=== PATIENT | male | born 1945 | race Caucasian/White ===

== ENCOUNTER 2016-09-24 11:36 | Observation (INO) | payer MEDICARE, OTHER ==
[~2016-09-24] VITALS: Ht 188 cm; Wt 119.0 kg
[~2016-09-24 11:36] MED LIST: ADV500INH INH; ADVAIR DISKUS INH; ALBU17IN INH; ALBU83IN INH; AMLO5TAB2 PO; ANTIBIOTIC; ASPI81CH PO; ASPI81TA85 PO; ASTELIN; ATRO1SOL13 INH; BUDE0.5S6 INH; CEFT250S PO; DETR4CAP10 PO; FOSI40TA PO; GLYB5TA PO; HUMA100I3 SC; HUMA100I5 SC; HUMA75IN2 SC; HYDR-3713 PO; HYDR12.55 PO; HYDR25TAB PO; INSULADS SC; INSULANT SC; KAOP262S PO; LEVA500T PO; LEVA750T PO; LIPI10TA PO; LOPE2TAB3 PO; METF1000 PO; METO25TAB PO; NASAGEL; NEUR600T PO; NITR4TASL SL; NORC1TAB4 PO; NYST50SS PO; OCUVCAP2 PO; OMEP40CA2 PO; POTA550T2 PO; PULM0.5S INH; REQU0.5T PO; ROPI5TAB PO; SMZ-800T PO; TIOT18INH INH; TRAM50TA2 PO; TYLE325T5 PO; VICT18IN SC; VITA100066 PO; VITA1CAP4 PO; VITA200038 PO; VITA500C24 PO; VITMTA PO; ZITH500T PO
[2016-09-24] MEDS ORDERED: DETR1TAB4 PO (12:09)
[2016-09-24] MEDS ORDERED: POTA99TA PO (12:09)
[2016-09-24] MEDS ORDERED: DONETAB6 PO (12:09)
[2016-09-24] MEDS ORDERED: PYRI100T2 PO (12:09)
[2016-09-24 12:21] LABS: ABG BASE EXCESS -2.3 (-2.0-2.0); ABG HCO3 22.5 MEQ/L (22.0-26.0); ABG PARTIAL PRESSURE CO2 38.8 mmHg (35.0-45.0); ABG PARTIAL PRESSURE O2 65.3 mmHg (75.0-100.0); ABG STANDARD HCO3 22.5 MEQ/L (22.0-26.0); ABG TOTAL CO2 23.7 MEQ/L (23.0-31.0); ABG pH (ARTERIAL) 7.381 UNITS (7.350-7.450)
[2016-09-24 12:59] LABS: BASO % 0.5 % (0.0-1.0); EOS % 0.6 % (0.0-3.0); LARGE UNSTAINED CELL # 0.2 K/mm3 (0.0-0.4); LARGE UNSTAINED CELL % 2.7 % (0.0-4.0); LYMPH # 1.2 K/mm3 (1.5-4.5); LYMPH % 15.8 % (24.0-44.0); MEAN CORPUSCULAR HEMOGLOBIN 29.8 pg (27.0-33.0); MEAN CORPUSCULAR HGB CONC 31.3 g/dl (32.0-36.5); MEAN CORPUSCULAR VOLUME 95.2 fl (80.0-96.0); MONO # 0.8 K/mm3 (0.0-0.8); MONO % 10.7 % (0.0-5.0); NEUTROPHILS # 5.1 K/mm3 (1.8-7.7); NEUTROPHILS % 69.7 % (36.0-66.0); PLATELET COUNT, AUTOMATED 387 k/mm3 (150-450); RED CELL DISTRIBUTION WIDTH 13.6 % (11.5-14.5); WHITE BLOOD COUNT 7.4 K/mm3 (4.0-10.0)
[2016-09-24 13:07] LABS: INR 1.11
--- NOTE | 2016-09-24 13:36 | REP ---
PORTABLE CHEST: AP portable view of the chest is performed and compared to prior studies, most recent of which is 12/23/2015. Diffuse interstitial fibrosis is again seen unchanged. The fibrotic changes are more significant on the right than on the left. The heart is not significantly enlarged. There is mild tortuosity of the thoracic aorta. The mediastinal silhouette is unchanged. IMPRESSION: Stable chronic findings without evidence of acute infiltrate. Signed by Ruben Chapman MD 09/24/2016 05:38 P
[2016-09-24 13:48] LABS: ALBUMIN 2.7 GM/DL (3.2-5.2); ALBUMIN/GLOBULIN RATIO 0.55 (1.00-1.93); ALKALINE PHOSPHATASE 90 U/L (45-117); ALT/SGPT 12 U/L (12-78); ANION GAP 12 MEQ/L (8-16); AST/SGOT 9 U/L (15-37); BILIRUBIN,DIRECT 0.2 MG/DL (0.0-0.2); BILIRUBIN,TOTAL 0.8 MG/DL (0.2-1.0); BLOOD UREA NITROGEN 18 MG/DL (7-18); CALCIUM LEVEL 8.8 MG/DL (8.8-10.2); CARBON DIOXIDE LEVEL 26 MEQ/L (21-32); CHLORIDE LEVEL 90 MEQ/L (98-107); CREATININE FOR GFR 1.42 MG/DL (0.70-1.30); POTASSIUM SERUM 4.9 MEQ/L (3.5-5.1); SODIUM LEVEL 128 MEQ/L (136-145); TOTAL PROTEIN 7.6 GM/DL (6.4-8.2)
[2016-09-24 13:54] LABS: GLUCOSE, FASTING 815 MG/DL (83-110)
[2016-09-24] MEDS ORDERED: HumuLIN R (REGULAR) INSULIN (NovoLIN R) **100U/ML** PER UNIT IV ONE (14:15)
[2016-09-24] MEDS ORDERED: NS 500 ML IV ONE ×2 (14:15→15:00)
[2016-09-24] MEDS ORDERED: MOXIFLOXACIN HCL 400 MG in APPROPRIATE DILUENT 1 EA IV ONE (15:00)
--- NOTE | 2016-09-24 15:13 | REP ---
CT CHEST WITHOUT IV CONTRAST: CT chest is performed without IV contrast with sagittal and coronal reconstruction images performed. Comparison made with prior CT of the chest 04/10/[address] abdomen 05/13/2015. Chronic patchy infiltrate is seen in the right lower lobe, first seen on the CT of 04/10/2014. It improved on the CT of the abdomen 05/13/2015, but has now increased since that time. There is some involvement of the posterior inferior right upper lobe. Scattered fibrotic changes are seen diffusely bilaterally with upper lobe emphysematous changes. There is a stable 7 mm nodule along the left major fissure just below the level of the chantale. There is chronic fibroatelectatic change in the inferior left lower lobe. The heart is not significantly enlarged. There are several mildly enlarged mediastinal lymph nodes and a few mildly enlarged right hilar lymph nodes, which appear unchanged since the 04/10/2014 CT exam. There is no pleural or pericardial effusion. There is no aneurysm of the thoracic aorta with mild scattered atherosclerotic calcification. Visualized upper abdominal structures are unremarkable. IMPRESSION: Chronic infiltrate right lower lobe first seen on the 04/10/2014 exam, improved on the 05/13/2015 examination, but has now increased. There is some involvement of the adjacent posterior inferior right upper lobe. Chronic mediastinal and right hilar adenopathy is unchanged since 04/10/2014. Signed by Ruben Chapman MD 09/24/2016 05:40 P
[2016-09-24] MEDS ORDERED: HumaLOG INSULIN (NovoLOG) PER UNIT SC STA (16:13)
[2016-09-24] MEDS ORDERED: HumaLOG INSULIN (NovoLOG) PER UNIT As Ordered ONE (16:16)
[2016-09-24] MEDS ORDERED: BISACODYL 5 MG TAB PO PRN (16:45)
[2016-09-24] MEDS ORDERED: NITROGLYCERIN 0.3 MG SUBL TAB SL PRN (16:45)
[2016-09-24] MEDS ORDERED: ONDANSETRON 4MG/2ML VIAL (J2405) IV PRN (16:45)
[2016-09-24] MEDS ORDERED: ACETAMINOPHEN TAB 650MG DOSE (2X325MG) PO PRN (16:45)
[2016-09-24 17:18] LABS: THYROXINE (T4) 7.7 UG/DL (4.5-12.0)
[2016-09-24] MEDS ORDERED: METO12TA PO (17:53)
[2016-09-24] MEDS ORDERED: INSULANT SC (17:53)
[2016-09-24] MEDS ORDERED: INSUHUMDS SC (17:53)
[2016-09-24] MEDS ORDERED: NAME10TA PO (17:53)
[2016-09-24] MEDS ORDERED: INCR1INH INH (17:53)
[2016-09-24 18:17] LABS: ANION GAP 8 MEQ/L (8-16); BLOOD UREA NITROGEN 18 MG/DL (7-18); CALCIUM LEVEL 8.3 MG/DL (8.8-10.2); CARBON DIOXIDE LEVEL 28 MEQ/L (21-32); CHLORIDE LEVEL 96 MEQ/L (98-107); GLOMERULAR FILTRATION RATE 48.8 (>42); POTASSIUM SERUM 4.2 MEQ/L (3.5-5.1); SODIUM LEVEL 132 MEQ/L (136-145)
[2016-09-24] MEDS: NS 1,000 ML IV SCH (18:20)
[2016-09-24 18:25] LABS: GLUCOSE, FASTING 487 MG/DL (83-110)
[2016-09-24 18:38] VITALS: BP 137/63
[2016-09-24] MEDS ORDERED: INSULIN HUMAN REGULAR 100 UNITS in NS 99 ML IV SCH (19:00)
[2016-09-24 20:00] VITALS: BP 137/62
[2016-09-24] MEDS: BUDESONIDE 0.5 MG/2 ML INHALATION SUSPENSION INH SCH (20:00)
[2016-09-24] MEDS: ADVAIR DISKUS 500/50 INH PWD INH SCH (20:49)
[2016-09-24] MEDS: METOPROLOL TART 25 MG TABLET PO SCH (21:12)
[2016-09-24] MEDS: rOPINIRole 0.25 MG TAB(REQUIP) PO SCH (21:13)
[2016-09-24 22:00] VITALS: BP 133/61
[2016-09-24] MEDS: INSULIN IV RATE CHANGE DOCUMENTATION ML/HR XX SCH ×2 (22:10→23:54)
[2016-09-24 23:59] LABS: ANION GAP 7 MEQ/L (8-16); BLOOD UREA NITROGEN 19 MG/DL (7-18); CALCIUM LEVEL 8.4 MG/DL (8.8-10.2); CARBON DIOXIDE LEVEL 31 MEQ/L (21-32); CHLORIDE LEVEL 98 MEQ/L (98-107); CREATININE FOR GFR 1.35 MG/DL (0.70-1.30); GLOMERULAR FILTRATION RATE 55.2 (>42); POTASSIUM SERUM 4.1 MEQ/L (3.5-5.1); SODIUM LEVEL 136 MEQ/L (136-145)
[2016-09-25] VITALS (9 sets, daily range): BP systolic 118–138; BP diastolic 56–74
[2016-09-25 00:04] LABS: GLUCOSE, FASTING 449 MG/DL (83-110)
[2016-09-25] MEDS: INSULIN IV RATE CHANGE DOCUMENTATION ML/HR XX SCH ×2 (01:04→02:29)
[2016-09-25 02:38] LABS: ANION GAP 6 MEQ/L (8-16); BLOOD UREA NITROGEN 18 MG/DL (7-18); CALCIUM LEVEL 8.5 MG/DL (8.8-10.2); CARBON DIOXIDE LEVEL 30 MEQ/L (21-32); CHLORIDE LEVEL 102 MEQ/L (98-107); CREATININE FOR GFR 1.12 MG/DL (0.70-1.30); GLOMERULAR FILTRATION RATE > 60.0 (>42); GLUCOSE, FASTING 191 MG/DL (83-110); POTASSIUM SERUM 4.1 MEQ/L (3.5-5.1); SODIUM LEVEL 138 MEQ/L (136-145)
[2016-09-25] MEDS: NS 1,000 ML IV SCH (03:10)
[2016-09-25] MEDS ORDERED: LEVEMIR (INSULIN DETEMIR) 1 UNITS/0.01ML SC ONE (03:45)
[2016-09-25] MEDS ORDERED: DEXTROSE 50% 50 ML SYRINGE IV PRN (04:45)
[2016-09-25] MEDS ORDERED: GLUCOSE 4 GM CHEW TABLET PO PRN (04:45)
[2016-09-25] MEDS ORDERED: GLUCAGON FOR INJ 1 MG VIAL (J1610) SC PRN (04:45)
[2016-09-25 06:41] LABS: BASO # 0.1 K/mm3 (0.0-0.2); BASO % 0.7 % (0.0-1.0); EOS # 0.4 K/mm3 (0.0-0.50); EOS % 5.2 % (0.0-3.0); LARGE UNSTAINED CELL # 0.3 K/mm3 (0.0-0.4); LARGE UNSTAINED CELL % 3.6 % (0.0-4.0); LYMPH # 1.8 K/mm3 (1.5-4.5); LYMPH % 23.2 % (24.0-44.0); MEAN CORPUSCULAR HEMOGLOBIN 29.7 pg (27.0-33.0); MEAN CORPUSCULAR HGB CONC 32.1 g/dl (32.0-36.5); MEAN CORPUSCULAR VOLUME 92.4 fl (80.0-96.0); MONO # 0.9 K/mm3 (0.0-0.8); MONO % 11.8 % (0.0-5.0); NEUTROPHILS # 4.4 K/mm3 (1.8-7.7); NEUTROPHILS % 55.4 % (36.0-66.0); PLATELET COUNT, AUTOMATED 383 k/mm3 (150-450); RED CELL DISTRIBUTION WIDTH 13.5 % (11.5-14.5); WHITE BLOOD COUNT 7.9 K/mm3 (4.0-10.0)
[2016-09-25 07:03] LABS: ANION GAP 9 MEQ/L (8-16); BLOOD UREA NITROGEN 16 MG/DL (7-18); CALCIUM LEVEL 8.3 MG/DL (8.8-10.2); CARBON DIOXIDE LEVEL 28 MEQ/L (21-32); CHLORIDE LEVEL 102 MEQ/L (98-107); CREATININE FOR GFR 1.02 MG/DL (0.70-1.30); GLOMERULAR FILTRATION RATE > 60.0 (>42); GLUCOSE, FASTING 197 MG/DL (83-110); SODIUM LEVEL 139 MEQ/L (136-145)
[2016-09-25] MEDS: HumaLOG INSULIN (NovoLOG) PER UNIT SC SCH ×3 (07:31→18:50)
[2016-09-25] MEDS: TIOTROPIUM INHALER/CAPSULE (SPIRIVA) INH SCH (07:53)
[2016-09-25] MEDS: ADVAIR DISKUS 500/50 INH PWD INH SCH ×2 (07:53→18:24)
[2016-09-25] MEDS: BUDESONIDE 0.5 MG/2 ML INHALATION SUSPENSION INH SCH ×2 (07:53→18:24)
[2016-09-25] MEDS: ATORVASTATIN 20 MG TAB PO SCH (08:07)
[2016-09-25] MEDS: PANTOPRAZOLE 40MG TAB (PROTONIX) PO SCH (08:07)
[2016-09-25] MEDS: MULTIVITAMINS/MINERALS THERAP 1 TAB PO SCH (08:07)
[2016-09-25] MEDS: PYRIDOXINE 50 MG TAB PO SCH (08:07)
[2016-09-25] MEDS: DONEPEZIL 5 MG TAB PO SCH (08:08)
[2016-09-25] MEDS: METOPROLOL TART 25 MG TABLET PO SCH ×2 (08:08→20:51)
[2016-09-25] MEDS: TOLTERODINE (DETROL) 2 MG TAB PO SCH (08:11)
--- NOTE | 2016-09-25 08:29 | ECGEPIP ---
Stationary ECG Study [facility] - ED Test Date: 2016-09-24 Pat Name: RIA HOLCOMB Department: Room: - Gender: M Brass Buffer: cassy : 1945 Requested By: Noni Grady Order Number: [id number] Reading MD: Noni Grady Measurements Intervals Connel[place] Rate: 82 P: 64 [place]: 139 QRS: 57 QRSD: 105 T: 58 QT: 387 QTc: 452 Interpretive Statements SINUS RHYTHM INCREASED RATE 12/12/14 Electronically Signed On 09-25-2016 8:28:45 EDT by Noni Grady
[2016-09-25] MEDS ORDERED: ENOXAPARIN 30 MG/0.3 ML SYR (J1650) SC SCH (09:00)
[2016-09-25] MEDS ORDERED: ASPIRIN 81 MG ENTERIC TAB PO SCH (09:00)
[2016-09-25] MEDS ORDERED: LEVEMIR (INSULIN DETEMIR) 1 UNITS/0.01ML SC SCH (09:00)
--- NOTE | 2016-09-25 13:31 | IPNPDOC ---
Subjective Date Seen The patient was seen on 09/25/16. Subjective Chief Complaint/HPI The patient is a 71-year-old male admitted with a reason for visit of Hyperosmolar Non Ketotic State In Patient W/Dm Ii. General: Denies: Chills, Night Sweats Constitutional: Denies: Chills, Fever Eyes: Denies: Pain, Vision change ENT: Denies: Ear Pain, Head Aches Skin: Denies: Lesions, Rash Pulmonary: Reports: Cough, Dyspnea Cardiovascular: Denies: Chest Pain, Palpitations Gastrointestinal: Denies: Nausea, Vomiting Genitourinary: Denies: Dysuria, Frequency Hematologic: Denies: Bleeding Excessively, Bruising Musculoskeletal: Denies: Back Pain, Neck Pain Objective Physical Examination General Exam: Positive: Alert, Cooperative, No Acute Distress ENT Exam: Positive: Atraumatic, Mucous membr. moist/pink Chest Exam: Positive: Diminished, Wheezing, Negative: Rales Heart Exam: Positive: Normal S1, Normal S2, Rate Normal Abdomen Exam: Positive: Soft, Negative: Tenderness Extremity Exam: Negative: Swelling, Tenderness Assessment /Plan Plan/VTE VTE Prophylaxis Ordered?: Yes Plan Hyperosmolar Non Ketotic State, resolved Likely 2/2 underlying CAP, non-adherence to insulin therapy (Patient admits that he did not take his meds yesterday as he was feeling unwell) S/P IVF Hydration, Insulin gtt Patient converted to SC Insulin this AM Patient's Blood sugar levels have been labile this AM, we will conservatively give him a dose of Levemir 30 Units this AM (Typically takes Lantus 80 U QAM) We will continue to monitor the patient's blood sugar levels and titrate insulin dosing as tolerated Community Acquired Pneumonia CT of the Chest notable for chronic RLL infiltrate, and development of a new posterior inferior RUL infiltrate Patient Afebrile this AM, WBC WNL, and Hemodynamically stable Cough, SOB improved Cont Moxifloxacin Advanced COPD with Chronic Hypoxia requiring 3L of Oxygen at rest, and 5L at night Patients respiratory status improved with treatment noted above Will with-hold steroid therapy as the patient has improved, and with his labile blood sugar levels and HHNK state Cont Nebs, Advair, Spiriva as ordered ?Hemoptysis vs Productive Cough from underlying CAP Hgb noted to be stable Aspirin and DVT prophylaxis with-held No further episodes of productive cough Will continue to monitor Hx of CAD s/p Stent Continue statin, BB Hold ASA 2/2 Above Hypertension, stable GERD Cont PPI Chronic Kidney Disease Serum Cr appears to be at baseline limits Dyslipidemia Cont Statin Dementia, stable Cont Donepezil Restless Leg Syndrome Cont Ropinirole DVT prophylaxis TEDs/SCDs Dispo: Pending clinical improvement, PT eval. VS, I&O, 24H, Fishbone Vital Signs/I&O Vital Signs Date Time Temp Pulse Resp B/P Pulse Ox O2 Delivery O2 Flow Rate FiO2 09/25/16 13:02 98.4 68 18 138/69 92 Nasal Cannula 4.0 I&O- Last 24 Hours up to 6 AM 09/25/16 06:00 Intake Total 4990 ml Output Total 1815 ml Balance 3175 ml Laboratory Data 24H LABS Laboratory Tests 2 09/24/16 15:59: Bedside Glucose (Misc Panel) 556*H 09/24/16 17:07: Bedside Glucose (Misc Panel) 487H 09/24/16 17:42: Anion Gap 8, Blood Urea Nitrogen 18, Creatinine 1.50H, Sodium Level 132L, Potassium Level 4.2, Chloride Level 96L, Carbon Dioxide Level 28, Calcium Level 8.3L, Total Creatine Kinase 74, Creatine Kinase MB 2.3, Creatine Kinase MB Relative Index 3.10, Glomerular Filtration Rate 48.8, Troponin I < 0.02 09/24/16 18:20: Bedside Glucose (Misc Panel) 483H 09/24/16 19:13: Bedside Glucose (Misc Panel) 587*H 09/24/16 20:02: Bedside Glucose (Misc Panel) 497H 09/24/16 21:11: Bedside Glucose (Misc Panel) 481H 09/24/16 22:06: Bedside Glucose (Misc Panel) 458H 09/24/16 22:49: Anion Gap 7L, Blood Urea Nitrogen 19H, Creatinine 1.35H, Sodium Level 136, Potassium Level 4.1, Chloride Level 98, Carbon Dioxide Level 31, Calcium Level 8.4L, Total Creatine Kinase 73, Creatine Kinase MB 2.2, Creatine Kinase MB Relative Index 3.01, Glomerular Filtration Rate 55.2, Troponin I < 0.02 09/24/16 23:05: Bedside Glucose (Misc Panel) 414H 09/24/16 23:46: Urine Ketones 1+H 09/24/16 23:50: Bedside Glucose (Misc Panel) 299H 09/25/16 01:01: Bedside Glucose (Misc Panel) 194H 09/25/16 01:47: Bedside Glucose (Misc Panel) 180H 09/25/16 02:04: Anion Gap 6L, Blood Urea Nitrogen 18, Creatinine 1.12, Sodium Level 138, Potassium Level 4.1, Chloride Level 102, Carbon Dioxide Level 30, Calcium Level 8.5L, Glomerular Filtration Rate > 60.0 09/25/16 03:08: Bedside Glucose (Misc Panel) 171H 09/25/16 03:46: Bedside Glucose (Misc Panel) 180H 09/25/16 05:06: Bedside Glucose (Misc Panel) 172H 09/25/16 06:02: Anion Gap 9, White Blood Count 7.9, Red Blood Count 4.49, Hemoglobin 13.3L, Hematocrit 41.5L, Mean Corpuscular Volume 92.4, Mean Corpuscular Hemoglobin 29.7 , Mean Corpuscular Hemoglobin Concent 32.1, Red Cell Distribution Width 13.5, Platelet Count 383, Neutrophils (%) (Auto) 55.4, Lymphocytes (%) (Auto) 23.2L, Monocytes (%) (Auto) 11.8H, Eosinophils (%) (Auto) 5.2H, Basophils (%) (Auto) 0.7, Neutrophils # (Auto) 4.4, Lymphocytes # (Auto) 1.8, Monocytes # (Auto) 0.9H , Eosinophils # (Auto) 0.4, Basophils # (Auto) 0.1, Blood Urea Nitrogen 16, Creatinine 1.02, Sodium Level 139, Potassium Level 4.0, Chloride Level 102, Carbon Dioxide Level 28, Calcium Level 8.3L, Total Creatine Kinase 58, Creatine Kinase MB 1.7, Creatine Kinase MB Relative Index 2.93, Glomerular Filtration Rate > 60.0, Large Unclassified Cells # 0.3, Large Unclassified Cells % 3.6, Troponin I < 0.02 09/25/16 06:15: Bedside Glucose (Misc Panel) 185H 09/25/16 07:00: Bedside Glucose (Misc Panel) 176H 09/25/16 08:25: Bedside Glucose (Misc Panel) 205H 09/25/16 09:05: Bedside Glucose (Misc Panel) 274H 09/25/16 09:58: Bedside Glucose (Misc Panel) 334H 09/25/16 11:11: Bedside Glucose (Misc Panel) 327H 09/25/16 11:41: Bedside Glucose (Misc Panel) 331H CBC/BMP Laboratory Tests 09/24/16 17:42 Calcium Level 8.3 L, Total Creatine Kinase 74 09/24/16 22:49 Calcium Level 8.4 L, Total Creatine Kinase 73 09/25/16 02:04 Calcium Level 8.5 L 09/25/16 06:02 Calcium Level 8.3 L, Total Creatine Kinase 58, Red Blood Count 4.49, Mean Corpuscular Volume 92.4, Mean Corpuscular Hemoglobin 29.7, Mean Corpuscular Hemoglobin Concent 32.1, Red Cell Distribution Width 13.5, Neutrophils (%) (Auto ) 55.4, Lymphocytes (%) (Auto) 23.2 L, Monocytes (%) (Auto) 11.8 H, Eosinophils (%) (Auto) 5.2 H, Basophils (%) (Auto) 0.7, Neutrophils # (Auto) 4.4, Lymphocytes # (Auto) 1.8, Monocytes # (Auto) 0.9 H, Eosinophils # (Auto) 0.4, Basophils # (Auto) 0.1 Microbiology Microbiology 09/24/16 Blood Culture - Preliminary, Resulted No growth after 24 hours . All specim... 09/24/16 Blood Culture - Preliminary, Resulted No growth after 24 hours . All specim... 09/24/16 Respiratory Virus Panel (PCR) (LILY) - Final, Complete 09/24/16 Acid Fast Stain - Final, Resulted 09/24/16 Mycobacterial Culture, Resulted Pending 09/24/16 Gram Stain - Final, Resulted 09/24/16 Sputum Culture, Resulted Pending 09/24/16 Influenza Virus Type A Antigen - Final, Complete 09/24/16 Influenza Virus Type B Antigen - Final, Complete KATRINA PIZANO MD Sep 25, 2016 13:31
--- NOTE | 2016-09-25 17:03 | HPE ---
DATE OF ADMISSION: 09/24/2016 CHIEF COMPLAINT: Hemoptysis. INPATIENT HOSPITALIST ATTENDING: Alonzo Uriostegui MD PRIMARY CARE PHYSICIAN: Dr. Felix Grimaldo HISTORY OF PRESENTING ILLNESS: This is a 71-year-old male with past medical history of coronary artery disease (CAD), diabetes with neuropathy, vitamin D deficiency, hypertension, hyperlipidemia, chronic obstructive pulmonary disease (COPD), type 2 diabetes with episodes of hypoglycemia, allergic rhinitis, sleep apnea, degenerative joint disease, arthritis of the knee, presents to the emergency room with complaints of hemoptysis for the past 3-4 days, scant in nature, about 1/4 of a teaspoon. No dizziness, lightheadedness, chest pain, shortness of breath. No fevers or chills at home. The patient was found to have a chronic right lower lobe infiltrate for which he sees Dr. Gilbert, unchanged from 05/13/2015, currently increased with adjacent involvement in right upper lobe by CT scan. He denies any recent nonsteroidal anti-inflammatory drug (NSAID) use, on chronic aspirin at home. He was afebrile at 98.6 on admission. He otherwise denies any hematemesis, reflux, chest pain, pressure, palpitations, lightheadedness or dizziness during this episode. Due to prior history of low glucose levels, patient had not been taking his insulin, and was found to have a glucose level of 815. Hospitalist service was called for admission for evaluation of hemoptysis and treatment for hyperosmolar nonketotic state, glucose of 815, due to noncompliance with his insulin. PAST MEDICAL HISTORY: 1. Type 2 diabetes. 2. CAD, on chronic aspirin. 3. Diabetic neuropathy. 4. Vitamin D deficiency. 5. Hypertension. 6. Hyperlipidemia. 7. COPD, follows with Dr. Gilbert. 8. Allergic rhinitis. 9. Sleep apnea, on continuous positive airway pressure (CPAP). 10. Degenerative joint disease of the lumbar spine. 11. Knee arthritis. 12. Dementia. PAST SURGICAL HISTORY: Coronary stents. ALLERGIES: No known drug allergies. SOCIAL HISTORY: Former smoker. FAMILY HISTORY: Coronary heart disease in the father. HOME MEDICATIONS: - [place] 5-325 one tablet every 6 hours as needed - albuterol sulfate 2.5 four times a day as needed for shortness of breath - Proventil as needed every 4 hours - aspirin 81 daily - budesonide 0.5/2 mL four times a day - vitamin D 2000 units daily - Neurontin 600 mg tablet, 1800 mg by mouth twice a day - Lantus insulin 80 units every morning - Lispro four times a day - loperamide 2 mg four times a day as needed - Namenda 10 twice a day - metoprolol 25 mg twice a day - multivitamin one tablet daily - nitroglycerin as needed - pyridoxine (vitamin B6) 100 mg daily - Requip 0.5 daily - Advair Diskus 500-50 one puff twice a day - tramadol 50 mg twice a day as needed for pain REVIEW OF SYSTEMS: Per history of present illness (HPI). 12-point system otherwise negative. PHYSICAL EXAMINATION: 09/24/2016: Temperature 98.6, pulse 94, respiratory rate 22, blood pressure 167/82, 86% on room air, 92% on 2 liters nasal cannula. Generally, awake, alert, oriented times three, answering questions appropriately. No jugular venous distention (JVD), no thyromegaly, no cervical lymphadenopathy. LUNGS: Basilar crackles on the right base, otherwise faint expiratory wheezing, air entry is equal. HEART: S1, S2, sinus rhythm. No murmurs, rubs, or gallops. ABDOMEN: Soft, nontender, nondistended. Positive bowel sounds. EXTREMITIES: No cyanosis, clubbing, or pitting edema. White count 7.4, hemoglobin 14, hematocrit 46, platelet count 387, neutrophils 69.7. Sodium 128, potassium 4.9, chloride 90, bicarbonate 26, BUN 18, creatinine 1.42, glucose 815, A1c 11.3. Chest CT: Chronic infiltrate right lower lobe first seen 04/10/2014, improved on 05/13/2015, now increased, somewhat involving posterior inferior right upper lobe. Chronic mediastinal right hilar adenopathy is unchanged 04/10/2014. Previous sputum culture 06/01/2016 was Pseudomonas and mold-like organism on 04/10/2014. ASSESSMENT AND PLAN: This is a 71-year-old male with history of hypoglycemia, type 2 diabetes, history of coronary artery disease (CAD) with stents on chronic aspirin, chronic obstructive pulmonary disease (COPD), chronic right lower lobe infiltrate on CT dating back to 2013, hypertension, dementia, chronic hypoxia requiring 3 liters of oxygen at rest and 5 liters at night, reflux, chronic kidney disease at baseline, dyslipidemia, restless legs, presents with complaints of hemoptysis and noncompliance with his insulin, was found to be in hyperosmolar nonketotic state with glucose of 815. Patient will be admitted and assigned to Dr. Alonzo Uriostegui at 10 p.m. 09/24/2016, as an inpatient for the following issues: 1. Hyperosmolar nonketotic state secondary to uncontrolled type 2 diabetes from medical noncompliance with his insulin. Patient has had several episodes of hypoglycemia, low glucose level, prompting him to be noncompliant with his insulin at home. Patient will be given intravenous insulin until glucose is improved. IV fluids for now and resume home dose of long-acting and short-acting insulin once patient is stabilized. Every 4 hours basic metabolic panels (BMPs) and sliding scale per protocol. May transfer out of intensive care unit (ICU) to medical/surgical floor once patient's glucose is stabilized. Continue consistent carbohydrate diet, sliding scale, diabetic teaching, and hypoglycemic protocol teaching. 2. Hemoptysis in light of chronic right lower lobe infiltrate. Patient will be treated for pneumonia. He has been started on Avelox. Will obtain sputum culture, respiratory panel. 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 Gilbert. Will check Acid-Fast Bacilli (AFB) times three. Await sputum culture results and change antibiotics accordingly. Monitor for increased white count or worsening shortness of breath as well as fevers. Patient may be colonized with Pseudomonas. Currently has no other respiratory complaints. 3. History of coronary artery disease (CAD) and stents. In light of current hemoptysis complaints, patient's aspirin and anticoagulation will be discontinued and he will be given compression stockings. 4. Community-acquired pneumonia right lower lobe. Antibiotics. Afebrile. Continue nebulizer treatments. Await sputum culture. Check urine Legionella and urine Streptococcal antigen. Nebulizer treatments for comfort and supplemental oxygen. 5. Advanced chronic obstructive pulmonary disease (COPD) with chronic hypoxic respiratory failure. Keep saturations at 88-92%. Continue with nebulizer treatments. No acute exacerbation at this time. Will hold off on steroid therapy due to elevated glucose levels. 6. Hypertension, stable. 7. Reflux. On proton pump inhibitor (PPI). 8. Chronic kidney disease at baseline. Avoid nephrotoxins. Renally dose all medications. 9. Dyslipidemia. Continue statin. 10. Dementia. On donepezil. 11. Restless legs. Continue ropinirole. 12. Deep venous thrombosis (DVT) prophylaxis with compression stockings. No anticoagulation due to current complaints of hemoptysis. 13. Hyperlipidemia. Continue Lipitor.
[2016-09-25] MEDS ORDERED: MOXIFLOXACIN 400 MG TAB PO SCH (18:00)
[2016-09-25] MEDS: LEVEMIR (INSULIN DETEMIR) 1 UNITS/0.01ML SC SCH (20:51)
[2016-09-25] MEDS: rOPINIRole 0.25 MG TAB(REQUIP) PO SCH (20:51)
[2016-09-25] MEDS ORDERED: HumaLOG INSULIN (NovoLOG) PER UNIT SC SCH (21:00)
[2016-09-26 06:00] VITALS: BP 143/69
[2016-09-26 06:53] LABS: BASO # 0.1 K/mm3 (0.0-0.2); BASO % 0.9 % (0.0-1.0); EOS # 0.6 K/mm3 (0.0-0.50); EOS % 7.3 % (0.0-3.0); LARGE UNSTAINED CELL # 0.4 K/mm3 (0.0-0.4); LARGE UNSTAINED CELL % 4.7 % (0.0-4.0); LYMPH # 2.7 K/mm3 (1.5-4.5); LYMPH % 28.7 % (24.0-44.0); MEAN CORPUSCULAR HGB CONC 31.5 g/dl (32.0-36.5); MEAN CORPUSCULAR VOLUME 91.9 fl (80.0-96.0); MONO # 0.8 K/mm3 (0.0-0.8); MONO % 9.3 % (0.0-5.0); NEUTROPHILS % 49.2 % (36.0-66.0); PLATELET COUNT, AUTOMATED 377 k/mm3 (150-450); RED CELL DISTRIBUTION WIDTH 13.5 % (11.5-14.5); WHITE BLOOD COUNT 8.2 K/mm3 (4.0-10.0)
[2016-09-26] MEDS: TIOTROPIUM INHALER/CAPSULE (SPIRIVA) INH SCH (07:50)
[2016-09-26] MEDS: ADVAIR DISKUS 500/50 INH PWD INH SCH (07:50)
[2016-09-26] MEDS: BUDESONIDE 0.5 MG/2 ML INHALATION SUSPENSION INH SCH (07:50)
[2016-09-26] MEDS ORDERED: AVEL1TAB PO (08:02)
[2016-09-26] MEDS: LEVEMIR (INSULIN DETEMIR) 1 UNITS/0.01ML SC SCH (08:07)
[2016-09-26 08:08] VITALS: BP 143/69
[2016-09-26] MEDS: METOPROLOL TART 25 MG TABLET PO SCH (08:08)
[2016-09-26] MEDS: MULTIVITAMINS/MINERALS THERAP 1 TAB PO SCH (08:08)
[2016-09-26] MEDS: ATORVASTATIN 20 MG TAB PO SCH (08:08)
[2016-09-26] MEDS: PANTOPRAZOLE 40MG TAB (PROTONIX) PO SCH (08:08)
[2016-09-26] MEDS: HumaLOG INSULIN (NovoLOG) PER UNIT SC SCH (08:08)
[2016-09-26] MEDS: PYRIDOXINE 50 MG TAB PO SCH (08:09)
[2016-09-26] MEDS: DONEPEZIL 5 MG TAB PO SCH (08:09)
[2016-09-26] MEDS: TOLTERODINE (DETROL) 2 MG TAB PO SCH (08:12)
[2016-09-26] MEDS ORDERED: INSULADS INJ (08:32)
--- NOTE | 2016-09-26 13:21 | DS.PDOC ---
Discharge Summary General Date of Admission Sep 24, 2016 at 16:35 Date of Discharge Sep 26, 2016 at 10:20 Discharge Summary PROCEDURES PERFORMED DURING STAY: None. ADMITTING DIAGNOSES: 1. . HHNK 2. . Hemoptysis 3. . Community-acquired pneumonia DISCHARGE DIAGNOSES: 1. . HHNK 2. . Hemoptysis 3. . Community-acquired pneumonia COMPLICATIONS/CHIEF COMPLAINT: Hyperosmolar Non Ketotic State In Patient W/Dm Ii. HISTORY OF PRESENT ILLNESS: . 71-year-old male with past medical history of diabetes mellitus, coronary artery disease, diabetic neuropathy, vitamin D deficiency, hypertension, discectomy, COPD on 3 L of oxygen at baseline during the day, and 5 L of oxygen at night, degenerative joint disease, obstructive sleep apnea, and osteoporosis presented the ER with a chief complaint of shortness of breath, with productive cough, and hemoptysis. The patient denied any episodes of fevers, chills, chest pain, palpitations, abdominal pain, or any nausea/vomiting/diarrhea at home. In addition, the patient stated that he did not take any his medications on the morning prior to his coming to the ER. In the ER, patient was noted to be hyperglycemic with a blood glucose level of 815. In addition, a CT scan of the chest revealed chronic infiltrate with a right lower lobe, and a developing inferior right upper lobe infiltrate. The patient was admitted to the hospitalist service for further evaluation and management of hyperglycemia and community acquired pneumonia. During the patient's hospitalization, he was started on IV fluid hydration and an insulin drip for hyperglycemia/HHNK. In addition he was started on moxifloxacin for community-acquired pneumonia. In addition, the patient's aspirin was held for possible hemoptysis. The patient's clinical condition markedly improved with IV fluid hydration and IV insulin, and he was subsequently transitioned to subcutaneous insulin. The patient states that he had not been taking his insulin therapy at home because he has been having episodes of hypoglycemia. I have rearranged the patient's Lantus regimen to 30 units subcutaneous twice a day as opposed to 80 units every morning, and this has relatively controlled the patient's blood sugar levels here in the hospital without any episodes of hypoglycemia. I have advised the patient to follow-up with monitoring his blood sugar at home to ensure that he does not become hyperglycemic again. As for the patient's hemoptysis and respiratory distress, the patient did not have any further episodes of hemoptysis and his respiratory status improved with antibiotic therapy. At this time, the patient states that he is feeling much better and he will be discharged home with a 10 day trial of moxifloxacin. DISCHARGE MEDICATIONS: Please see below. ALLERGIES: Please see below. PHYSICAL EXAMINATION ON DISCHARGE: VITAL SIGNS: Please see below. General Exam: Positive: Alert, Cooperative, No Acute Distress ENT Exam: Positive: Atraumatic, Mucous membr. moist/pink Chest Exam: Positive: Diminished, Wheezing, Negative: Rales Heart Exam: Positive: Normal S1, Normal S2, Rate Normal Abdomen Exam: Positive: Soft, Negative: Tenderness Extremity Exam: Negative: Swelling, Tenderness LABORATORY DATA: Please see below. IMAGING: CT CHEST WITHOUT IV CONTRAST: CT chest is performed without IV contrast with sagittal and coronal reconstruction images performed. Comparison made with prior CT of the chest 04/10/[address] abdomen 05/13/2015. Chronic patchy infiltrate is seen in the right lower lobe, first seen on the CT of 04/10/2014. It improved on the CT of the abdomen 05/13/2015, but has now increased since that time. There is some involvement of the posterior inferior right upper lobe. Scattered fibrotic changes are seen diffusely bilaterally with upper lobe emphysematous changes. There is a stable 7 mm nodule along the left major fissure just below the level of the chant[place]. There is chronic fibroatelectatic change in the inferior left lower lobe. The heart is not significantly enlarged. There are several mildly enlarged mediastinal lymph nodes and a few mildly enlarged right hilar lymph nodes, which appear unchanged since the 04/10/2014 CT exam. There is no pleural or pericardial effusion. There is no aneurysm of the thoracic aorta with mild scattered atherosclerotic calcification. Visualized upper abdominal structures are unremarkable. IMPRESSION: Chronic infiltrate right lower lobe first seen on the 04/10/2014 exam, improved on the 05/13/2015 examination, but has now increased. There is some involvement of the adjacent posterior inferior right upper lobe. Chronic mediastinal and right hilar adenopathy is unchanged since 04/10/2014. PROGNOSIS: Medically stable at this time, long-term prognosis poor ACTIVITY: As tolerated. DIET: . Carb consistent diet DISCHARGE PLAN: DISPOSITION: 01 Home, Self-Care. DISCHARGE INSTRUCTIONS: 1. . Follow-up with primary care physician within one to 2 weeks 2. . Follow-up with pulmonary within 2-4 weeks 3. . Complete antibiotic trial over the next 10 days DISCHARGE CONDITION: Stable. TIME SPENT ON DISCHARGE: Greater than 30 minutes. Vital Signs/I&Os Vital Signs Date Time Temp Pulse Resp B/P Pulse Ox O2 Delivery O2 Flow Rate FiO2 09/26/16 10:00 Room Air 09/26/16 08:08 62 143/69 09/26/16 06:00 98.4 20 92 4.0 I&O- Last 24 Hours up to 6 AM 09/26/16 06:00 Intake Total 2080 ml Output Total 450 ml Balance 1630 ml Laboratory Data Labs 24H Laboratory Tests 2 09/25/16 17:12: Bedside Glucose (Misc Panel) 313H 09/25/16 19:52: Bedside Glucose (Misc Panel) 331H 09/26/16 06:07: White Blood Count 8.2, Red Blood Count 4.59, Hemoglobin 13.3L, Hematocrit 42.2, Mean Corpuscular Volume 91.9, Mean Corpuscular Hemoglobin 29.0, Mean Corpuscular Hemoglobin Concent 31.5L, Red Cell Distribution Width 13.5, Platelet Count 377, Neutrophils (%) (Auto) 49.2, Lymphocytes (%) (Auto) 28.7, Monocytes (%) (Auto) 9.3H, Eosinophils (%) (Auto) 7.3H, Basophils (%) (Auto) 0.9 , Neutrophils # (Auto) 4.0, Lymphocytes # (Auto) 2.7, Monocytes # (Auto) 0.8, Eosinophils # (Auto) 0.6H, Basophils # (Auto) 0.1, Large Unclassified Cells # 0.4, Large Unclassified Cells % 4.7H 09/26/16 06:38: Bedside Glucose (Misc Panel) 116H CBC/BMP Laboratory Tests 09/26/16 06:07 Red Blood Count 4.59, Mean Corpuscular Volume 91.9, Mean Corpuscular Hemoglobin 29.0, Mean Corpuscular Hemoglobin Concent 31.5 L, Red Cell Distribution Width 13.5, Neutrophils (%) (Auto) 49.2, Lymphocytes (%) (Auto) 28.7, Monocytes (%) ( Auto) 9.3 H, Eosinophils (%) (Auto) 7.3 H, Basophils (%) (Auto) 0.9, Neutrophils # (Auto) 4.0, Lymphocytes # (Auto) 2.7, Monocytes # (Auto) 0.8, Eosinophils # (Auto) 0.6 H, Basophils # (Auto) 0.1 FSBS Laboratory Tests Test 09/25/16 17:12 09/25/16 19:52 09/26/16 06:38 Range/Units Bedside Glucose (Misc Panel) 313 331 116 83-110 MG/DL Microbiology Microbiology 09/24/16 Blood Culture - Preliminary, Resulted No Growth after 48 hours. All Specime... 09/24/16 Blood Culture - Preliminary, Resulted No Growth after 48 hours. All Specime... 09/24/16 Respiratory Virus Panel (PCR) (LILY) - Final, Complete 09/24/16 Acid Fast Stain - Final, Resulted 09/24/16 Mycobacterial Culture, Resulted Pending 09/24/16 Gram Stain - Final, Resulted 09/24/16 Sputum Culture, Resulted Pending 09/24/16 Influenza Virus Type A Antigen - Final, Complete 09/24/16 Influenza Virus Type B Antigen - Final, Complete Discharge Medications Scheduled (Aspirin) 81 Mg Chw 81 MG PO DAILY (Reported) (Incruse Ellipta) 62.5 Mcg/Inh Inh 1 PUFF INH DAILY (Reported) Cholecalciferol (Vitamin D) 1,000 Unit Tab 2,000 UNIT PO DAILY (Reported) Donepezil Hcl (Donepezil HCl) 10 Mg Tab 10 MG PO DAILY (Reported) Gabapentin (Neurontin) 600 Mg Tab 1,800 MG PO BID (Reported) Insulin Glargine (Lantus) 100 Unit/Ml Inj 30 UNIT INJ BID Insulin Human Lispro (Humalog) 1 Units/0.01 Ml Inj 1 DOSE SC QID (Reported) [facility] has rx on file as 25 units up to qid, pt adjusts per sliding scale Memantine Hydrochloride (Namenda) 10 Mg Tab 10 MG PO BID (Reported) Metoprolol Tartrate (Metoprolol Tartrate) 25 Mg Tab 25 MG PO BID (Reported) Moxifloxacin Hydrochloride (Avelox) 400 Mg Tab 400 MG PO DAILY@18 Multivitamins *[facility] STOCKED* (Thera M Plus *[facility] STOCK[facility]*) 1 Tab Tab 1 TAB PO DAILY (Reported) Potassium (Potassium) 99 Mg Tab 99 MG PO DAILY (Reported) Pyridoxine HCl (Vitamin B-6) 100 Mg Tab 100 MG PO DAILY (Reported) Ropinirole Hydrochloride (Requip) 0.5 Mg Tab 0.5 MG PO DAILY (Reported) Salmeterol/Fluticasone (Advair Diskus 500-50 Mcg/Dose) 28 Puff/Inhaler Aerp 1 PUFF INH BID (Reported) Scheduled PRN (Kaopectate) 262 Mg/15 Ml [place] 262 MG PO QID PRN PRN DIARRHEA (Reported) Acetaminophen/Hydrocodone ([place] 5-325 mg) 1 Tab Tab 1 TAB PO Q6H PRN PRN PAIN ( Reported) Albuterol Sulfate (Ventolin Hfa) 200 Puff/8 Gm Aers 2 PUFF INH Q4HP PRN PRN SHORTNESS OF BREATH (Reported) Albuterol Sulfate (Albuterol Sulfate) 2.5 Mg/3 Ml Nebu 2.5 MG INH QID PRN PRN SHORTNESS OF BREATH (Reported) Budesonide (Budesonide) 0.5 Mg/2 Ml Neb 0.5 MG INH QID PRN PRN SHORTNESS OF BREATH (Reported) Loperamide HCl (Loperamide A-D) 2 Mg Tab 2 MG PO QID PRN PRN DIARRHEA (Reported ) Nitroglycerin (Nitrostat) 0.4 Mg Subl 0.4 MG SL Q5MP PRN PRN ANGINA (Reported) Tramadol HCl (Tramadol HCl) 50 Mg Tab 50 MG PO BID PRN PRN PAIN (Reported) Allergies Coded Allergies: No Known Allergies (Unverified , 10/18/13) KATRINA PIZANO MD Sep 26, 2016 13:21
--- NOTE | 2016-09-26 22:10 | HPE ---
DATE OF ADMISSION: 09/24/2016 PRIMARY CARE PHYSICIAN: Dr. Grimaldo HOSPITALIST ATTENDING: Dr. Radha Uriostegui. CHIEF COMPLAINT: Hemoptysis. HISTORY OF PRESENTING ILLNESS: A 71-year-old male with prior history of chronic obstructive pulmonary disease (COPD) on home oxygen 2 liters, with chronic hypoxic respiratory failure, coronary artery disease (CAD), stent 2009, type 2 diabetes, hypertension, episodes of hyperglycemia, chronic right lower lobe pneumonia, follows with Dr. Lin, vitamin D deficiency, hyperlipidemia, allergic rhinitis, sleep apnea, degenerative disc disease and ulcerative arthritis of the knees, and diabetic neuropathy, presents to the emergency room with three to four day history of hemoptysis, about a 1/4 of a teaspoon of bright red blood. Patient denies fever, chills. He has chronic shortness of breath. No chest pain, pressure or tightness, nausea or vomiting, diarrhea, abdominal pain. No changes in appetite. No prior history of hemoptysis. He has chronic right lower lobe infiltrate and density with no prior bronchoscopy or biopsy. He had been a more than 50 pack year history of smoking, quit seven years ago. Patient also complains of occasional memory loss and states that he has been eating outside. Sugars have been running very low for the past few months and he is afraid to take his insulin. Patient has not taken his insulin today, was found to have a glucose level of 800. Hospitalist service was called for admission for hyperosmolar non-ketosis with glucose level of 800 with no ketones. A1c was 11.3 with glucose of 815. Chest CT shows chronic right lower lobe infiltrate, improved 05/13/2015 as compared to 03/2014, but currently increased, with involvement of the inferior right upper lobe with chronic mediastinal right hilar adenopathy since 2013. Hospitalist service was asked to admit for management of patient's hyperosmolar non-ketosis, glucose of 815, as well as evaluation for the right upper lobe and chronic right lower lobe infiltrate. PAST MEDICAL HISTORY: 1. Type 2 diabetes. 2. Episodes of hyperglycemia. 3. Hypertension. 4. Vitamin D deficiency 5. Coronary artery disease (CAD) with stent. 6. Hyperlipidemia. 7. Chronic obstructive pulmonary disease (COPD). 8. Allergic rhinitis. 9. Chronic 2 liters of oxygen. 10. Obstructive sleep apnea. 11. Degenerative joint disease lumbar spine. 12. Ulcerative arthritis of the knees. PAST SURGICAL HISTORY: 1. Cardiac stent. 2. Upper teeth surgery with plate placement. ALLERGIES: No known drug allergies. SOCIAL HISTORY: A pack a day since age 13, quit in 2009. Retired . Worked for [employer] for 24 years. Lives with and has a cat at home. Quit drinking 2009. FAMILY HISTORY: Cardiac disease in the father. in his 60s. Mother in her 50s with unknown medical problems. REVIEW OF SYSTEMS: A 12-point system negative aside from positive findings in history of present illness (HPI). HOME MEDICATIONS: - [place] 1 tablet every 6 hours as needed - albuterol 2.5 mg four times a day as needed - Ventolin 2 puffs as needed every 4 hours - aspirin 81 mg daily - atorvastatin 10 mg daily - budesonide 0.5 mg four times a day as needed - vitamin D 2000 units daily - Neurontin 1800 mg twice a day - loperamide as needed four times a day - metoprolol 25 mg twice a day - multivitamin 1 tablet daily - nitroglycerin as needed - mg daily - Requip 0.5 mg at bedtime - Advair Diskus 500/50 one puff twice a day - Spiriva 1 inhaled daily - Detrol 4 mg daily - tramadol 50 mg twice a day as needed PHYSICAL EXAMINATION: Temperature 98.6, pulse 94, respiratory 22, blood pressure 167/82, 96% on room air. GENERAL: Awake, alert, oriented times three. Answers questions appropriately. No cyanosis. No use of respiratory accessory muscles. Appears older than stated age. Missing teeth, poor dentition. Dry mucous membranes. No jugular venous distention (JVD), thyromegaly, cervical adenopathy. LUNGS: Clear to auscultation. No wheezing, rales or rhonchi. HEART: S1, S2. Sinus rhythm. No murmurs, rubs or gallops. ABDOMEN: Soft, nontender, nondistended. Bowel sounds positive. EXTREMITIES: No clubbing, cyanosis or pitting edema. LABORATORY DATA: White count 7.3, hemoglobin 14, hematocrit 46, platelet count 387, neutrophils 69.7. Sodium 128, potassium 4.9, chloride 90, bicarbonate 26, BUN 18, creatinine 1.42, glucose 815, calcium 8.8. A1c 11.3. Serum osmolality 326. Lactic acid 1.7. Total bilirubin 0.8, direct bilirubin 0.28, ALT 12, alkaline phosphatase 90, total protein 7.6, albumin 2.7. Total CK 69. MB fraction 2.2. Troponin less than 0.02. Brain natriuretic peptide (BNP) 532. Thyroid stimulating hormone (TSH) is pending. Microbiology: Influenza A and B both negative. Blood culture pending. CT chest shows persistent right lower lobe infiltrate first seen 04/10/2014, improved on 05/13/2015, now increased involvement of adjacent posterior-inferior right upper lobe, chronic mediastinal and right hilar adenopathy and changes change since 04/10/2014. ASSESSMENT AND PLAN: This is a 71-year-old male with a more than 50 pack year history of smoking, quit about seven years ago, previous history of alcohol use, type 2 diabetes, episodes of hyperglycemia, hypertension, hyperlipidemia, coronary artery disease (CAD) with stent, on chronic aspirin, presents to the emergency room with a three to four day history of hemoptysis, about 1/4 teaspoon to one teaspoon at home, found to have hyperosmolar non-ketosis secondary to type 2 diabetes and medical noncompliance with his insulin regimen. Current glucose is 815, A1c of 11.3. He was noted to have, on chest CT, a chronic right lower lobe infiltrate with current involvement of the right upper lobe. Patient will be admitted as an inpatient for two midnights and assigned to Dr. Garcia, seen at 10 p.m. on 09/24/2016, hospitalist service for the following issues: 1. Hemoptysis. Patient has no acute indication for red blood cell transfusion. Hemoglobin and hematocrit (H and H) and vital signs are stable. CT chest shows persistent right lower lobe infiltrate. He has an outpatient followup with Dr. Gilbert next week, which he will keep. At this time, no acute indication for bronchoscopy. We will check a sputum culture, respiratory panel, an acid-fast bacillus. Patient has not traveled outside the country, does not require isolation at this time and no high-risk contacts. Influenza A and B are negative. Antibiotics with Avelox for now. 2. Hyperosmolar non-ketosis. Glucose level of over 800 secondary to medical noncompliance with his insulin due to fear of hypoglycemia. Patient will be placed in intensive care unit (ICU), fingersticks every hour, basic metabolic panel (BMP) every 4 hours. Once glucose is less than 250, may resume home dose of insulin. Continue with consistent carbohydrate diet. Insulin sliding scale with hyperglycemic protocol. Once patient is off insulin drip, intensive care unit (ICU) admission for every hour fingersticks. 3. History of coronary artery disease (CAD) and stent due to active hemoptysis. Aspirin will be held today. Continue on Lipitor, metoprolol 25 mg twice a day, nitroglycerin as needed. 4. Restless legs. Continue ropinirole. 5. History of chronic obstructive pulmonary disease (COPD) on chronic oxygen. Venting on 2 liters nasal cannula. 6. History of dementia. Continue on Aricept. 7. Deep venous thrombosis (DVT) prophylaxis. With compression stockings. No anticoagulation due to hemoptysis. Patient will be assigned to Radha Uriostegui at 10 p.m., 09/24/2016.
== END 2016-09-26 10:20 | disposition home or self-care (01) ==
LOC: M ED 13:09 → M ED INP 16:35 → M ICU 18:11 → M MS5PR 09-25 12:41
PROVIDERS: ADMIT General Practice; ATTEND Internal Medicine
DX: E11.00 Type 2 diabetes mellitus with hyperosmolarity without nonketotic hyperglycemic-hyperosmolar coma (NKHHC) (principal); E11.21 Type 2 diabetes mellitus with diabetic nephropathy; R04.2 Hemoptysis; J18.9 Pneumonia, unspecified organism; I25.10 Atherosclerotic heart disease of native coronary artery without angina pectoris; E55.9 Vitamin D deficiency, unspecified; I10 Essential (primary) hypertension; J44.9 Chronic obstructive pulmonary disease, unspecified; Z99.81 Dependence on supplemental oxygen; R06.02 Shortness of breath; E78.5 Hyperlipidemia, unspecified; J30.9 Allergic rhinitis, unspecified; Z79.82 Long term (current) use of aspirin; Z79.4 Long term (current) use of insulin; Z79.899 Other long term (current) drug therapy; G25.81 Restless legs syndrome; N18.9 Chronic kidney disease, unspecified; Z98.61 Coronary angioplasty status; F03.90 Unspecified dementia, unspecified severity, without behavioral disturbance, psychotic disturbance, mood disturbance, and anxiety
CPT/HCPCS: 36415; 36600; 71010; 71250; 80048; 80076; 81002; 82550; 82553; 82803; 83036; 83605; 83880; 83930; 84436; 84443; 84479; 84484; 85025; 85610; 86480; 87040; 87070; 87077; 87116; 87184; 87205; 87206; 87486; 87581; 87633; 87798; 87804; 93005; 93041; 94640; 97161; 99285; G0378; G8978; G8979; G8980; J2280

== ENCOUNTER → 2016-10-13 | Outpatient (CLI) | payer MEDICARE, OTHER ==
[~2016-10-13] MED LIST changes: +AVEL1TAB PO; +DETR1TAB4 PO; +DONETAB6 PO; +INCR1INH INH; +INSUHUMDS SC; +INSULADS INJ; +METO12TA PO; +NAME10TA PO; +POTA99TA PO; +PYRI100T2 PO
--- NOTE | 2016-10-13 11:18 | REP ---
CHEST, TWO VIEWS: HISTORY: Right lower lobe pneumonia. COMPARISON: 09/24/2016 A diffuse increase in interstitial markings is present in the lungs, consistent with chronic interstitial fibrosis. Bullae are present in the right upper lobe. The heart is normal in size. There is fullness of the right hilum, unchanged compared to the previous study. The bony structure is intact. IMPRESSION: Chronic interstitial fibrosis.
== END ==
LOC: M CLY 10:42
PROVIDERS: ATTEND Family Medicine
DX: J15.1 Pneumonia due to Pseudomonas (principal)

== ENCOUNTER → 2017-01-06 | Outpatient (REF) | payer MEDICARE, OTHER ==
[~2017-01-06] MED LIST changes: -AVEL1TAB PO; +AVEL1TAB3 PO; +DETR4CAP PO; -DETR4CAP10 PO; +LEVA1TAB2 PO; -LEVA500T PO; -LEVA750T PO; +LEVA750T7 PO; -METF1000 PO; +METF10004 PO; -METO12TA PO; +METO1TAB87 PO; -REQU0.5T PO; +REQU1TAB15 PO; -SMZ-800T PO; +SULF1TAB23 PO; +VITA-137 PO; -VITA1CAP4 PO
[2017-01-06 19:20] LABS: ALBUMIN 3.3 GM/DL (3.2-5.2); ALBUMIN/GLOBULIN RATIO 0.79 (1.00-1.93); ALKALINE PHOSPHATASE 89 U/L (45-117); ALT/SGPT 17 U/L (12-78); ANION GAP 8 MEQ/L (8-16); AST/SGOT 13 U/L (15-37); BILIRUBIN,TOTAL 0.5 MG/DL (0.2-1.0); BLOOD UREA NITROGEN 17 MG/DL (7-18); CALCIUM LEVEL 8.9 MG/DL (8.8-10.2); CARBON DIOXIDE LEVEL 28 MEQ/L (21-32); CHLORIDE LEVEL 101 MEQ/L (98-107); CREATININE FOR GFR 1.12 MG/DL (0.70-1.30); GLOMERULAR FILTRATION RATE > 60.0 (>42); GLUCOSE, FASTING 82 MG/DL (83-110); SODIUM LEVEL 137 MEQ/L (136-145); TOTAL PROTEIN 7.5 GM/DL (6.4-8.2)
[2017-01-06 19:23] LABS: POTASSIUM SERUM 5.3 MEQ/L (3.5-5.1)
== END ==
LOC: M SFHCCLAY 13:09
PROVIDERS: ATTEND Family Medicine
DX: E11.40 Type 2 diabetes mellitus with diabetic neuropathy, unspecified (principal)
CPT/HCPCS: 80053; 83036; G0463

== ENCOUNTER → 2017-03-31 | Outpatient (REF) | payer MEDICARE, OTHER ==
[2017-03-31 19:03] LABS: VITAMIN B12 LEVEL 546 PG/ML (247-911)
[2017-03-31 19:04] LABS: FOLATE 7.9 NG/ML (>5.4)
[2017-03-31 19:06] LABS: TOTAL PROTEIN 7.7 GM/DL (6.4-8.2)
[2017-04-01 14:00] LABS: ALBUMIN % 50.5 % (55.8-66.1)
[2017-04-01 14:01] LABS: ALBUMIN 3.89 GM/DL (3.29-5.55); GAMMA GLOBULIN % 16.7 % (11.1-18.8)
[2017-04-06 08:06] LABS: VITAMIN E LEVEL 15.7 mg/L (5.3-17.5)
== END ==
LOC: M LABNEURO 15:02
PROVIDERS: ATTEND Psychiatry & Neurology Neurology
DX: E07.9 Disorder of thyroid, unspecified (principal); E11.9 Type 2 diabetes mellitus without complications

== ENCOUNTER 2017-06-20 11:26 | Inpatient (IN) | payer MEDICARE, OTHER ==
[2017-06-20 11:44] LABS: ABG BASE EXCESS -1.3 (-2.0-2.0); ABG O2 SATURATION 98.5 % (95.0-99.0); ABG PARTIAL PRESSURE CO2 47.2 mmHg (35.0-45.0); ABG PARTIAL PRESSURE O2 127.6 mmHg (75.0-100.0); ABG STANDARD HCO3 23.4 MEQ/L (22.0-26.0); ABG TOTAL CO2 26.4 MEQ/L (23.0-31.0); ABG pH (ARTERIAL) 7.341 UNITS (7.350-7.450)
[2017-06-20] MEDS ORDERED: NS IV (11:45)
[2017-06-20] MEDS ORDERED: DILUENT IV (11:45)
[2017-06-20 12:14] LABS: HEMATOCRIT 44.7 % (42.0-52.0); HEMOGLOBIN 15.2 g/dl (14.0-18.0); MEAN CORPUSCULAR HEMOGLOBIN 29.1 pg (27.0-33.0); MEAN CORPUSCULAR VOLUME 85.6 fl (80.0-96.0); PLATELET COUNT, AUTOMATED 331 10^3/uL (150-450); RED BLOOD COUNT 5.22 10^6/uL (4.30-6.10); RED CELL DISTRIBUTION WIDTH 13.5 % (11.5-14.5)
[2017-06-20 12:19] LABS: ADD MANUAL DIFFER YES; DIFF SLIDE NUMBER 121; LEFT SHIFT POS FLAG; POSITIVE MORPH POS FLAG
[2017-06-20 12:26] LABS: INR 0.95; PARTIAL THROMBOPLASTIN TIME 26.1 SECONDS (26.8-37.9); PROTHROMBIN TIME 12.8 SECONDS (12.4-14.5)
[2017-06-20 12:28] LABS: AMMONIA < 10 uMOL/L (<32)
[2017-06-20 12:32] LABS: LACTIC ACID SEPSIS PROTOCOL 1.9 MMOL/L (0.4-2.0)
[2017-06-20 12:37] LABS: ALBUMIN 3.1 GM/DL (3.2-5.2); ALBUMIN/GLOBULIN RATIO 0.63 (1.00-1.93); ALKALINE PHOSPHATASE 77 U/L (45-117); ALT/SGPT 14 U/L (12-78); AMYLASE 31 U/L (25-115); ANION GAP 11 MEQ/L (8-16); AST/SGOT 8 U/L (7-37); BILIRUBIN,DIRECT 0.1 MG/DL (0.0-0.2); BILIRUBIN,TOTAL 0.4 MG/DL (0.2-1.0); BLOOD UREA NITROGEN 51 MG/DL (7-18); CARBON DIOXIDE LEVEL 29 MEQ/L (21-32); CHLORIDE LEVEL 101 MEQ/L (98-107); CPK CREATINE PHOSPHOKINASE 27 U/L (39-308); CREATININE FOR GFR 2.36 MG/DL (0.70-1.30); GLOMERULAR FILTRATION RATE 28.9 (>42); POTASSIUM SERUM 3.9 MEQ/L (3.5-5.1); SODIUM LEVEL 141 MEQ/L (136-145); TROPONIN I < 0.02 NG/ML (< 0.10)
[2017-06-20 12:39] LABS: GLUCOSE, FASTING 476 MG/DL (83-110)
[2017-06-20 12:54] LABS: AMORPHOUS SEDIMENT SMALL (NEGATIVE); APPEARANCE, URINE HAZY (CLEAR); BACTERIA, URINE AUTO 1+ (NEGATIVE); BILIRUBIN, URINE AUTO NEGATIVE (NEGATIVE); BLOOD, URINE BLOOD 1+ (NEGATIVE); COLOR, URINE YELLOW (YELLOW); GLUCOSE, URINE (UA) AUTO 3+ mg/dL (NEGATIVE); KETONE, URINE AUTO TRACE mg/dL (NEGATIVE); LEUKOCYTE ESTERASE, URINE AUTO NEGATIVE (NEGATIVE); MUCUS, URINE SMALL (NEGATIVE); NITRITE, URINE AUTO NEGATIVE (NEGATIVE); PROTEIN, URINE AUTO 2+ mg/dL (NEGATIVE); RBC, URINE AUTO 2 /HPF (0-3); SPECIFIC GRAVITY URINE AUTO 1.025 (1.002-1.035); SQUAMOUS EPITHELIAL CELL UR AU 0 /HPF (0-6); UROBILINOGEN, URINE AUTO 0.2 mg/dL (0.0-2.0); WBC, URINE AUTO 2 /HPF (0-3)
[2017-06-20] MEDS: HumuLIN R (REGULAR) INSULIN (NovoLIN R) **100U/ML** PER UNIT IV (13:01)
[2017-06-20] MEDS: MOXIFLOXACIN HCL 400 MG in APPROPRIATE DILUENT 1 EA IV (13:01)
[2017-06-20] MEDS: methylPREDNISolone INJ 125 MG/2 ML VIAL (J2930) IV (13:06)
[2017-06-20] MEDS: IPRATROPIUM 0.5MG/ALBUTEROL 2.5MG INH SOL UD 3ML (DUONEB)(J7620) NEB ×3 (13:08→13:40)
[2017-06-20 13:13] LABS: ACETAMINOPHEN LEVEL < 2.0 UG/ML (10.0-30.0)
[2017-06-20] MEDS: NS 1,000 ML IV ×2 (13:15→18:48)
[2017-06-20 13:19] LABS: ATYPICAL LYMPH 1 % (0-5); BANDS 9 % (< 11); BASOPHILS 1 % (0-4); LYMPHOCYTES 4 % (16-52); METAMYELOCYTES 4 % (0-0); MONOCYTES 7 % (0-8); MYELOCYTES 1 % (0-0); NEUTROPHILS 73 % (35-75); PLATELET ESTIMATE NORMAL (NORMAL)
[2017-06-20 13:30] LABS: AMPHETAMINES LEVEL URINE NEGATIVE (NEGATIVE); BARBITURATES URINE NEGATIVE (NEGATIVE); BENZODIAZEPINES URINE NEGATIVE (NEGATIVE); CANNABINOIDS URINE NEGATIVE (NEGATIVE); COCAINE METABOLITE URINE NEGATIVE (NEGATIVE); METHADONE URINE NEGATIVE (NEGATIVE); OPIATES URINE NEGATIVE (NEGATIVE); PHENCYCLIDINE URINE NEGATIVE (NEGATIVE)
[2017-06-20] MEDS ORDERED: BISACODYL 10 MG SUPP PR (13:30)
[2017-06-20] MEDS ORDERED: BISACODYL 5 MG TAB PO (13:30)
[2017-06-20] MEDS ORDERED: IPRATROPIUM 0.5MG/ALBUTEROL 2.5MG INH SOL UD 3ML (DUONEB)(J7620) NEB ×2 (13:30→20:00)
[2017-06-20] MEDS ORDERED: ACETAMINOPHEN 650 MG SUPP PR (13:30)
[2017-06-20] MEDS ORDERED: ONDANSETRON 4MG/2ML VIAL (J2405) IV (13:30)
[2017-06-20] MEDS ORDERED: DIGOXIN INJ 0.5 MG/2 ML AMP (J1160) As Ordered (13:36)
[2017-06-20] MEDS ORDERED: DIGOXIN 0.25 MG TAB PO (13:45)
[2017-06-20] MEDS: DIGOXIN INJ 0.5 MG/2 ML AMP (J1160) IV (13:51)
[2017-06-20] MEDS: HEPARIN SOD (PORCINE) 5000 UNITS/ML VIAL SC ×2 (14:00→21:51)
[2017-06-20 14:29] LABS: BEDSIDE GLUCOSE 412 MG/DL (83-110)
[2017-06-20] MEDS ORDERED: LEVALBUTEROL 1.25 MG/0.5 ML CONCENTRATE NEB INH (14:30)
[2017-06-20] MEDS ORDERED: ANEXSIA, NORCO 7.5MG/325MG TABLET(HYDROCODONE/APAP) PO (14:30)
[2017-06-20] MEDS ORDERED: LOPERAMIDE 2 MG CAP PO (14:30)
[2017-06-20] MEDS ORDERED: NITROGLYCERIN 0.4 MG SUBL TABLET SL (14:30)
[2017-06-20] MEDS: LEVALBUTEROL 1.25 MG/0.5 ML CONCENTRATE NEB INH ×2 (17:49)
[2017-06-20 18:34] LABS: CPK CREATINE PHOSPHOKINASE 33 U/L (39-308); MB/CK RELATIVE INDEX 3.03 (< OR =4); TROPONIN I 0.03 NG/ML (< 0.10)
[2017-06-20] MEDS: ASPIRIN 81 MG CHEW TABLET PO (18:47)
[2017-06-20] MEDS: BUDESONIDE 0.5 MG/2 ML INHALATION SUSPENSION INH (20:13)
[2017-06-20 21:49] LABS: BEDSIDE GLUCOSE 395 MG/DL (83-110)
[2017-06-20] MEDS: BACLOFEN 10 MG TAB PO (21:50)
[2017-06-20] MEDS: METOPROLOL TART 25 MG TABLET PO (21:50)
[2017-06-20] MEDS: GABAPENTIN 300 MG CAP PO (21:50)
[2017-06-20] MEDS: methylPREDNISolone INJ 40 MG/1 ML VIAL (J2920) IV (21:50)
[2017-06-20] MEDS: LEVEMIR (INSULIN DETEMIR) 1 UNITS/0.01ML SC (21:51)
[2017-06-20] MEDS: MEMANTINE 5MG TABLET (NAMENDA) PO (22:19)
[2017-06-21] MEDS: NS 1,000 ML IV ×2 (05:23→05:55)
[2017-06-21 05:48] LABS: HEMATOCRIT 39.9 % (42.0-52.0); MEAN CORPUSCULAR HEMOGLOBIN 29.3 pg (27.0-33.0); MEAN CORPUSCULAR HGB CONC 32.6 g/dl (32.0-36.5); MEAN CORPUSCULAR VOLUME 89.9 fl (80.0-96.0); PLATELET COUNT, AUTOMATED 276 10^3/uL (150-450); RED BLOOD COUNT 4.44 10^6/uL (4.30-6.10); RED CELL DISTRIBUTION WIDTH 14.2 % (11.5-14.5); WHITE BLOOD COUNT 10.4 10^3/uL (4.0-10.0)
[2017-06-21] MEDS: methylPREDNISolone INJ 40 MG/1 ML VIAL (J2920) IV ×3 (05:54→20:31)
[2017-06-21] MEDS: HEPARIN SOD (PORCINE) 5000 UNITS/ML VIAL SC ×3 (05:55→21:12)
[2017-06-21 06:09] LABS: ANION GAP 8 MEQ/L (8-16); BLOOD UREA NITROGEN 54 MG/DL (7-18); CALCIUM LEVEL 8.2 MG/DL (8.8-10.2); CARBON DIOXIDE LEVEL 28 MEQ/L (21-32); CHLORIDE LEVEL 108 MEQ/L (98-107); CPK CREATINE PHOSPHOKINASE 68 U/L (39-308); CREATININE FOR GFR 2.07 MG/DL (0.70-1.30); GLOMERULAR FILTRATION RATE 33.7 (>42); POTASSIUM SERUM 4.4 MEQ/L (3.5-5.1); SODIUM LEVEL 144 MEQ/L (136-145); TROPONIN I 0.04 NG/ML (< 0.10)
[2017-06-21 06:10] LABS: CK-MB VALUE MASS 1.6 NG/ML (0.0-3.6); MB/CK RELATIVE INDEX 2.35 (< OR =4)
[2017-06-21 06:29] LABS: GLUCOSE, FASTING 636 MG/DL (83-110)
[2017-06-21] MEDS ORDERED: GLUCOSE 4 GM CHEW TABLET PO (07:15)
[2017-06-21] MEDS ORDERED: DEXTROSE 50% 50 ML SYRINGE IV (07:15)
[2017-06-21] MEDS ORDERED: GLUCAGON FOR INJ 1 MG VIAL (J1610) SC (07:15)
[2017-06-21] MEDS: HumaLOG INSULIN (NovoLOG) PER UNIT SC ×5 (07:17→20:31)
[2017-06-21] MEDS: BUDESONIDE 0.5 MG/2 ML INHALATION SUSPENSION INH ×2 (07:52→19:50)
[2017-06-21] MEDS: LEVALBUTEROL 1.25 MG/0.5 ML CONCENTRATE NEB INH ×4 (07:52→19:50)
[2017-06-21] MEDS: LEVEMIR (INSULIN DETEMIR) 1 UNITS/0.01ML SC ×2 (08:20→20:32)
[2017-06-21] MEDS: VITAMIN D 1,000 INTERNATIONAL UNITS TABLET PO (08:21)
[2017-06-21] MEDS: GABAPENTIN 300 MG CAP PO ×2 (08:21→20:32)
[2017-06-21] MEDS: MULTIVITAMINS/MINERALS THERAP 1 TAB PO (08:21)
[2017-06-21] MEDS: BACLOFEN 10 MG TAB PO ×2 (08:21→20:33)
[2017-06-21] MEDS: MEMANTINE 5MG TABLET (NAMENDA) PO ×2 (08:21→20:32)
[2017-06-21] MEDS: ASPIRIN 81 MG CHEW TABLET PO (08:21)
[2017-06-21] MEDS: METOPROLOL TART 25 MG TABLET PO ×2 (08:22→20:32)
[2017-06-21] MEDS: DONEPEZIL 5 MG TAB PO (08:22)
[2017-06-21] MEDS: TAMSULOSIN 0.4 MG CAP PO (08:22)
[2017-06-21] MEDS: PYRIDOXINE 50 MG TAB PO (10:57)
[2017-06-21] MEDS: rOPINIRole 0.25 MG TAB(REQUIP) PO (11:01)
[2017-06-21 12:15] LABS: BEDSIDE GLUCOSE 499 MG/DL (83-110)
[2017-06-21] MEDS: MOXIFLOXACIN HCL 400 MG in APPROPRIATE DILUENT 1 EA IV (12:17)
[2017-06-21 17:16] LABS: BEDSIDE GLUCOSE 389 MG/DL (83-110)
[2017-06-21 20:17] LABS: BEDSIDE GLUCOSE 462 MG/DL (83-110)
[2017-06-21] MEDS: ACETAMINOPHEN TAB 650MG DOSE (2X325MG) PO (21:16)
[2017-06-22 05:18] LABS: HEMATOCRIT 34.8 % (42.0-52.0); HEMOGLOBIN 11.7 g/dl (14.0-18.0); MEAN CORPUSCULAR HEMOGLOBIN 29.6 pg (27.0-33.0); MEAN CORPUSCULAR HGB CONC 33.6 g/dl (32.0-36.5); MEAN CORPUSCULAR VOLUME 88.1 fl (80.0-96.0); PLATELET COUNT, AUTOMATED 224 10^3/uL (150-450); RED BLOOD COUNT 3.95 10^6/uL (4.30-6.10); RED CELL DISTRIBUTION WIDTH 13.9 % (11.5-14.5); WHITE BLOOD COUNT 9.9 10^3/uL (4.0-10.0)
[2017-06-22] MEDS: HEPARIN SOD (PORCINE) 5000 UNITS/ML VIAL SC ×3 (05:22→21:20)
[2017-06-22] MEDS: methylPREDNISolone INJ 40 MG/1 ML VIAL (J2920) IV (05:22)
[2017-06-22 05:41] LABS: ANION GAP 7 MEQ/L (8-16); BLOOD UREA NITROGEN 47 MG/DL (7-18); CALCIUM LEVEL 7.6 MG/DL (8.8-10.2); CARBON DIOXIDE LEVEL 26 MEQ/L (21-32); CHLORIDE LEVEL 101 MEQ/L (98-107); CREATININE FOR GFR 1.33 MG/DL (0.70-1.30); GLOMERULAR FILTRATION RATE 56.1 (>42); GLUCOSE, FASTING 324 MG/DL (83-110); POTASSIUM SERUM 4.4 MEQ/L (3.5-5.1); SODIUM LEVEL 134 MEQ/L (136-145)
[2017-06-22] MEDS: HumaLOG INSULIN (NovoLOG) PER UNIT SC ×4 (07:37→21:00)
[2017-06-22] MEDS: LEVALBUTEROL 1.25 MG/0.5 ML CONCENTRATE NEB INH ×4 (08:00→20:46)
[2017-06-22] MEDS: BUDESONIDE 0.5 MG/2 ML INHALATION SUSPENSION INH ×2 (08:00→20:46)
[2017-06-22] MEDS: GABAPENTIN 300 MG CAP PO ×2 (09:21→21:18)
[2017-06-22] MEDS: VITAMIN D 1,000 INTERNATIONAL UNITS TABLET PO (09:21)
[2017-06-22] MEDS: LEVEMIR (INSULIN DETEMIR) 1 UNITS/0.01ML SC ×2 (09:21→21:18)
[2017-06-22] MEDS: MEMANTINE 5MG TABLET (NAMENDA) PO ×2 (09:21→21:18)
[2017-06-22] MEDS: DONEPEZIL 5 MG TAB PO (09:21)
[2017-06-22] MEDS: rOPINIRole 0.25 MG TAB(REQUIP) PO (09:21)
[2017-06-22] MEDS: METOPROLOL TART 25 MG TABLET PO ×2 (09:22→21:19)
[2017-06-22] MEDS: PYRIDOXINE 50 MG TAB PO (09:22)
[2017-06-22] MEDS: predniSONE 20 MG TAB PO ×2 (09:22→21:19)
[2017-06-22] MEDS: MULTIVITAMINS/MINERALS THERAP 1 TAB PO (09:22)
[2017-06-22] MEDS: ASPIRIN 81 MG CHEW TABLET PO (09:22)
[2017-06-22] MEDS: TAMSULOSIN 0.4 MG CAP PO (09:22)
[2017-06-22] MEDS: BACLOFEN 10 MG TAB PO ×2 (09:23→21:19)
[2017-06-22] MEDS ORDERED: SLF 3 ML SYR IV (11:00)
[2017-06-22 11:46] LABS: BEDSIDE GLUCOSE 246 MG/DL (83-110)
[2017-06-22] MEDS: MOXIFLOXACIN HCL 400 MG in APPROPRIATE DILUENT 1 EA IV (11:58)
[2017-06-22] MEDS: SLF 3 ML SYR IV ×2 (11:58→21:28)
[2017-06-22 17:09] LABS: BEDSIDE GLUCOSE 180 MG/DL (83-110)
[2017-06-22 20:52] LABS: BEDSIDE GLUCOSE 248 MG/DL (83-110)
[2017-06-23] MEDS: HEPARIN SOD (PORCINE) 5000 UNITS/ML VIAL SC (05:26)
[2017-06-23] MEDS: SLF 3 ML SYR IV (05:26)
[2017-06-23 06:34] LABS: HEMATOCRIT 38.6 % (42.0-52.0); HEMOGLOBIN 12.8 g/dl (14.0-18.0); MEAN CORPUSCULAR HEMOGLOBIN 29.2 pg (27.0-33.0); MEAN CORPUSCULAR HGB CONC 33.2 g/dl (32.0-36.5); MEAN CORPUSCULAR VOLUME 88.1 fl (80.0-96.0); PLATELET COUNT, AUTOMATED 265 10^3/uL (150-450); RED BLOOD COUNT 4.38 10^6/uL (4.30-6.10); RED CELL DISTRIBUTION WIDTH 14.1 % (11.5-14.5); WHITE BLOOD COUNT 8.5 10^3/uL (4.0-10.0)
[2017-06-23 06:49] LABS: ANION GAP 6 MEQ/L (8-16); BLOOD UREA NITROGEN 40 MG/DL (7-18); CALCIUM LEVEL 8.3 MG/DL (8.8-10.2); CARBON DIOXIDE LEVEL 30 MEQ/L (21-32); CHLORIDE LEVEL 103 MEQ/L (98-107); CREATININE FOR GFR 1.18 MG/DL (0.70-1.30); GLOMERULAR FILTRATION RATE > 60.0 (>42); GLUCOSE, FASTING 253 MG/DL (83-110); POTASSIUM SERUM 4.6 MEQ/L (3.5-5.1); SODIUM LEVEL 139 MEQ/L (136-145)
[2017-06-23] MEDS: LEVALBUTEROL 1.25 MG/0.5 ML CONCENTRATE NEB INH ×2 (07:13→11:51)
[2017-06-23] MEDS: BUDESONIDE 0.5 MG/2 ML INHALATION SUSPENSION INH (07:13)
[2017-06-23] MEDS: ASPIRIN 81 MG CHEW TABLET PO (08:30)
[2017-06-23] MEDS: VITAMIN D 1,000 INTERNATIONAL UNITS TABLET PO (08:31)
[2017-06-23] MEDS: BACLOFEN 10 MG TAB PO (08:31)
[2017-06-23] MEDS: MULTIVITAMINS/MINERALS THERAP 1 TAB PO (08:31)
[2017-06-23] MEDS: MEMANTINE 5MG TABLET (NAMENDA) PO (08:32)
[2017-06-23] MEDS: rOPINIRole 0.25 MG TAB(REQUIP) PO (08:32)
[2017-06-23] MEDS: GABAPENTIN 300 MG CAP PO (08:32)
[2017-06-23] MEDS: METOPROLOL TART 25 MG TABLET PO (08:33)
[2017-06-23] MEDS: predniSONE 20 MG TAB PO (08:33)
[2017-06-23] MEDS: PYRIDOXINE 50 MG TAB PO (08:33)
[2017-06-23] MEDS: DONEPEZIL 5 MG TAB PO (08:33)
[2017-06-23] MEDS: TAMSULOSIN 0.4 MG CAP PO (08:33)
[2017-06-23] MEDS: HumaLOG INSULIN (NovoLOG) PER UNIT SC ×2 (08:34→12:00)
[2017-06-23] MEDS: LEVEMIR (INSULIN DETEMIR) 1 UNITS/0.01ML SC (08:35)
[2017-06-23 12:16] LABS: BEDSIDE GLUCOSE 223 MG/DL (83-110)
[2017-06-23] MEDS: MOXIFLOXACIN HCL 400 MG in APPROPRIATE DILUENT 1 EA IV (13:00)
== END 2017-06-23 14:48 | disposition home or self-care (01) | DRG 871 ==
LOC: M MSPAV 06-22 18:26 → M ED 11:26 → M ED INP 14:22 → M PCU 18:12
DX: A41.9 Sepsis, unspecified organism (principal); J18.9 Pneumonia, unspecified organism; G93.41 Metabolic encephalopathy; J96.11 Chronic respiratory failure with hypoxia; N17.9 Acute kidney failure, unspecified; N18.3 Chronic kidney disease, stage 3 (moderate); E11.65 Type 2 diabetes mellitus with hyperglycemia; E78.5 Hyperlipidemia, unspecified; I25.10 Atherosclerotic heart disease of native coronary artery without angina pectoris; I12.9 Hypertensive chronic kidney disease with stage 1 through stage 4 chronic kidney disease, or unspecified chronic kidney disease; F03.90 Unspecified dementia, unspecified severity, without behavioral disturbance, psychotic disturbance, mood disturbance, and anxiety; N40.0 Benign prostatic hyperplasia without lower urinary tract symptoms; J44.9 Chronic obstructive pulmonary disease, unspecified; G47.33 Obstructive sleep apnea (adult) (pediatric); Z99.81 Dependence on supplemental oxygen; Z99.89 Dependence on other enabling machines and devices; Z95.9 Presence of cardiac and vascular implant and graft, unspecified; Z87.891 Personal history of nicotine dependence; Z79.82 Long term (current) use of aspirin; Z79.4 Long term (current) use of insulin; Z79.899 Other long term (current) drug therapy

== ENCOUNTER 2017-07-11 11:21 | Inpatient (IN) | payer MEDICARE, OTHER ==
[2017-07-11] MEDS ORDERED: METOPROLOL 5 MG/5 ML VIAL As Ordered (11:52)
[2017-07-11 11:58] LABS: BASO # 0.1 10^3/uL (0.0-0.2); BASO % 0.4 % (0.0-1.0); EOS % 0.2 % (0.0-3.0); HEMATOCRIT 45.8 % (42.0-52.0); HEMOGLOBIN 14.6 g/dl (14.0-18.0); IMMATURE GRANULOCYTE # 0.2 10^3/uL (0-0); IMMATURE GRANULOCYTE % 1.4 % (0-0); LYMPH # 0.9 10^3/uL (1.5-4.5); LYMPH % 6.7 % (24.0-44.0); MEAN CORPUSCULAR HEMOGLOBIN 29.1 pg (27.0-33.0); MEAN CORPUSCULAR HGB CONC 31.9 g/dl (32.0-36.5); MEAN CORPUSCULAR VOLUME 91.4 fl (80.0-96.0); MONO # 1.8 10^3/uL (0.0-0.8); MONO % 12.9 % (0.0-5.0); NEUTROPHILS # 10.7 10^3/uL (1.8-7.7); NEUTROPHILS % 78.4 % (36.0-66.0); PLATELET COUNT, AUTOMATED 495 10^3/uL (150-450); RED BLOOD COUNT 5.01 10^6/uL (4.30-6.10); RED CELL DISTRIBUTION WIDTH 13.8 % (11.5-14.5); WHITE BLOOD COUNT 13.7 10^3/uL (4.0-10.0)
[2017-07-11] MEDS: METOPROLOL 5 MG/5 ML VIAL IV ×3 (12:00→12:10)
[2017-07-11] MEDS: METOPROLOL TART 25 MG TABLET PO ×2 (12:00→18:00)
[2017-07-11 12:13] LABS: INR 0.88
[2017-07-11 12:14] LABS: PARTIAL THROMBOPLASTIN TIME 29.4 SECONDS (26.8-37.9)
[2017-07-11 12:23] LABS: NT-PRO BNP 570 PG/ML (<125)
[2017-07-11 12:25] LABS: ALBUMIN 2.9 GM/DL (3.2-5.2); ALBUMIN/GLOBULIN RATIO 0.56 (1.00-1.93); ALKALINE PHOSPHATASE 87 U/L (45-117); ALT/SGPT 15 U/L (12-78); ANION GAP 27 MEQ/L (8-16); AST/SGOT 10 U/L (7-37); BILIRUBIN,DIRECT < 0.1 MG/DL (0.0-0.2); BILIRUBIN,TOTAL 0.5 MG/DL (0.2-1.0); BLOOD UREA NITROGEN 40 MG/DL (7-18); CALCIUM LEVEL 9.3 MG/DL (8.8-10.2); CARBON DIOXIDE LEVEL 11 MEQ/L (21-32); CHLORIDE LEVEL 87 MEQ/L (98-107); CPK CREATINE PHOSPHOKINASE 35 U/L (39-308); CREATININE FOR GFR 2.28 MG/DL (0.70-1.30); FREE T4 1.08 NG/DL (0.76-1.46); GLOMERULAR FILTRATION RATE 30.1 (>42); LIPASE 80 U/L (73-393); SODIUM LEVEL 125 MEQ/L (136-145); TOTAL PROTEIN 8.1 GM/DL (6.4-8.2); TROPONIN I < 0.02 NG/ML (< 0.10)
[2017-07-11 12:31] LABS: CK-MB VALUE MASS 2.9 NG/ML (0.0-3.6); MB/CK RELATIVE INDEX 8.28 (< OR =4)
[2017-07-11 12:40] LABS: GLUCOSE, FASTING 728 MG/DL (70-100); POTASSIUM SERUM 5.5 MEQ/L (3.5-5.1)
[2017-07-11] MEDS: DIGOXIN INJ 0.5 MG/2 ML AMP (J1160) IV (13:32)
[2017-07-11] MEDS: HumuLIN R (REGULAR) INSULIN (NovoLIN R) **100U/ML** PER UNIT IV (13:45)
[2017-07-11] MEDS: NS 1,000 ML IV (13:45)
[2017-07-11] MEDS: AZITHROMYCIN INJ 500 MG, VIAL MATE ADAPTER 1 EACH in D5W 250 ML IV ×2 (14:00→16:00)
[2017-07-11 14:12] LABS: ABG BASE EXCESS -14.4 (-2.0-2.0); ABG O2 SATURATION 96.8 % (95.0-99.0); ABG PARTIAL PRESSURE CO2 25.6 mmHg (35.0-45.0); ABG PARTIAL PRESSURE O2 90.6 mmHg (75.0-100.0); ABG STANDARD HCO3 13.7 MEQ/L (22.0-26.0); ABG TOTAL CO2 11.8 MEQ/L (23.0-31.0)
[2017-07-11] MEDS ORDERED: INSULIN HUMAN REGULAR 100 UNITS in NS 99 ML IV ×3 (14:26→16:51)
[2017-07-11] MEDS ORDERED: INSULIN IV RATE CHANGE DOCUMENTATION ML/HR XX ×2 (14:30→17:00)
[2017-07-11] MEDS: CEFTRIAXONE SOD 2 GM in APPROPRIATE DILUENT 1 EA IV (15:00)
[2017-07-11 15:17] LABS: ACETONE/KETONE > 46.00 MG/DL (<2.81)
[2017-07-11] MEDS: INSULIN HUMAN REGULAR 100 UNITS in NS 99 ML IV ×2 (15:30→16:30)
[2017-07-11] MEDS ORDERED: NS 1,000 ML IV (15:45)
[2017-07-11] MEDS ORDERED: LOPERAMIDE 2 MG CAP PO (16:00)
[2017-07-11] MEDS ORDERED: HEPARIN SOD (PORCINE) 5000 UNITS/ML VIAL IV (16:00)
[2017-07-11] MEDS ORDERED: ONDANSETRON 4MG/2ML VIAL (J2405) IV (16:15)
[2017-07-11 16:22] LABS: ESTIMATED AVERAGE GLUCOSE 367 MG/DL (60-110); HEMOGLOBIN A1c 14.4 %
[2017-07-11 16:43] LABS: BEDSIDE GLUCOSE 417 MG/DL (83-110)
[2017-07-11] MEDS ORDERED: IPRATROPIUM 0.5MG/ALBUTEROL 2.5MG INH SOL UD 3ML (DUONEB)(J7620) NEB (16:45)
[2017-07-11 17:41] LABS: ANION GAP 15 MEQ/L (8-16); BLOOD UREA NITROGEN 43 MG/DL (7-18); CARBON DIOXIDE LEVEL 22 MEQ/L (21-32); CHLORIDE LEVEL 97 MEQ/L (98-107); CREATININE FOR GFR 2.13 MG/DL (0.70-1.30); GLOMERULAR FILTRATION RATE 32.6 (>42); GLUCOSE, FASTING 376 MG/DL (70-100); MAGNESIUM LEVEL 1.9 MG/DL (1.8-2.4); PHOSPHORUS LEVEL 3.2 MG/DL (2.5-4.9); POTASSIUM SERUM 4.2 MEQ/L (3.5-5.1); SODIUM LEVEL 134 MEQ/L (136-145)
[2017-07-11 17:43] LABS: BEDSIDE GLUCOSE 452 MG/DL (83-110)
[2017-07-11 17:44] LABS: CK-MB VALUE MASS 3.2 NG/ML (0.0-3.6); CPK CREATINE PHOSPHOKINASE 33 U/L (39-308); MB/CK RELATIVE INDEX 9.69 (< OR =4); TROPONIN I < 0.02 NG/ML (< 0.10)
[2017-07-11 18:05] LABS: ACETONE/KETONE > 46.00 MG/DL (<2.81)
[2017-07-11 18:56] LABS: BEDSIDE GLUCOSE 463 MG/DL (83-110)
[2017-07-11] MEDS: INSULIN IV RATE CHANGE DOCUMENTATION ML/HR XX ×4 (19:08→23:08)
[2017-07-11] MEDS: HEPARIN DRIP 25,000 UNITS in APPROPRIATE DILUENT 1 EA IV (19:42)
[2017-07-11] MEDS: KCL 20MEQ in NS 1000ML 1,000 ML IV (19:57)
[2017-07-11 20:05] LABS: BEDSIDE GLUCOSE 267 MG/DL (83-110)
[2017-07-11] MEDS: VANCOMYCIN HCL 1,000 MG, VIAL MATE ADAPTER 1 EACH in D5W 250 ML IV ×2 (20:11→21:29)
[2017-07-11] MEDS: BUDESONIDE 0.5 MG/2 ML INHALATION SUSPENSION INH (20:56)
[2017-07-11] MEDS: IPRATROPIUM 0.5MG/ALBUTEROL 2.5MG INH SOL UD 3ML (DUONEB)(J7620) NEB (20:56)
[2017-07-11] MEDS ORDERED: GABAPENTIN 300 MG CAP PO (21:00)
[2017-07-11 21:10] LABS: BEDSIDE GLUCOSE 263 MG/DL (83-110)
[2017-07-11] MEDS: MEMANTINE 5MG TABLET (NAMENDA) PO (21:28)
[2017-07-11] MEDS: BACLOFEN 10 MG TAB PO (21:28)
[2017-07-11] MEDS: DONEPEZIL 5 MG TAB PO (21:28)
[2017-07-11] MEDS: TROSPIUM 20 MG TAB PO (21:28)
[2017-07-11] MEDS: GABAPENTIN 300 MG CAP PO (21:29)
[2017-07-11 21:59] LABS: ANION GAP 9 MEQ/L (8-16); BLOOD UREA NITROGEN 42 MG/DL (7-18); CALCIUM LEVEL 8.7 MG/DL (8.8-10.2); CARBON DIOXIDE LEVEL 28 MEQ/L (21-32); CHLORIDE LEVEL 99 MEQ/L (98-107); CREATININE FOR GFR 1.93 MG/DL (0.70-1.30); GLOMERULAR FILTRATION RATE 36.5 (>42); GLUCOSE, FASTING 267 MG/DL (70-100); MAGNESIUM LEVEL 1.9 MG/DL (1.8-2.4); POTASSIUM SERUM 4.6 MEQ/L (3.5-5.1); SODIUM LEVEL 136 MEQ/L (136-145)
[2017-07-11 22:18] LABS: BEDSIDE GLUCOSE 306 MG/DL (83-110)
[2017-07-11 23:15] LABS: BEDSIDE GLUCOSE 277 MG/DL (83-110)
[2017-07-11] MEDS: LEVEMIR (INSULIN DETEMIR) 1 UNITS/0.01ML SC (23:15)
[2017-07-11] MEDS: ADVAIR HFA 230/21MCG INHALER INH (23:17)
[2017-07-11 23:43] LABS: CK-MB VALUE MASS 3.1 NG/ML (0.0-3.6); CPK CREATINE PHOSPHOKINASE 30 U/L (39-308); MB/CK RELATIVE INDEX 10.33 (< OR =4); TROPONIN I 0.02 NG/ML (< 0.10)
[2017-07-12 00:17] LABS: BEDSIDE GLUCOSE 217 MG/DL (83-110)
[2017-07-12 00:46] LABS: CHLORIDE,RANDOM URINE < 10 MEQ/L; CREATININE,RANDOM URINE 96.9 MG/DL; POTASSIUM RANDOM URINE 31.5 MEQ/L; SODIUM,RANDOM URINE 22 MEQ/L; TOTAL PROTEIN,RANDOM URINE 88.7 MG/DL (0.0-12.0)
[2017-07-12 00:55] LABS: OSMOLALITY URINE 487 MOSM/KG (500-800)
[2017-07-12] MEDS: INSULIN IV RATE CHANGE DOCUMENTATION ML/HR XX (01:09)
[2017-07-12 01:18] LABS: BEDSIDE GLUCOSE 166 MG/DL (83-110)
[2017-07-12] MEDS: IPRATROPIUM 0.5MG/ALBUTEROL 2.5MG INH SOL UD 3ML (DUONEB)(J7620) NEB ×4 (02:00→20:00)
[2017-07-12 02:18] LABS: PARTIAL THROMBOPLASTIN TIME 55.8 SECONDS (26.8-37.9)
[2017-07-12] MEDS ORDERED: DEXTROSE 50% 50 ML SYRINGE IV (02:30)
[2017-07-12] MEDS ORDERED: GLUCOSE 4 GM CHEW TABLET PO (02:30)
[2017-07-12] MEDS ORDERED: GLUCAGON FOR INJ 1 MG VIAL (J1610) SC (02:30)
[2017-07-12 02:46] LABS: ACETONE/KETONE 4.31 MG/DL (<2.81); ANION GAP 9 MEQ/L (8-16); BLOOD UREA NITROGEN 39 MG/DL (7-18); CALCIUM LEVEL 8.2 MG/DL (8.8-10.2); CARBON DIOXIDE LEVEL 27 MEQ/L (21-32); CHLORIDE LEVEL 101 MEQ/L (98-107); CREATININE FOR GFR 1.62 MG/DL (0.70-1.30); GLOMERULAR FILTRATION RATE 44.7 (>42); GLUCOSE, FASTING 175 MG/DL (70-100); MAGNESIUM LEVEL 1.8 MG/DL (1.8-2.4); PHOSPHORUS LEVEL 2.6 MG/DL (2.5-4.9); POTASSIUM SERUM 4.4 MEQ/L (3.5-5.1); SODIUM LEVEL 137 MEQ/L (136-145)
[2017-07-12] MEDS: CEFEPIME HCL 1 GM in APPROPRIATE DILUENT 1 EA IV (02:52)
[2017-07-12] MEDS ORDERED: CEFEPIME HCL 1 GM in APPROPRIATE DILUENT 1 EA IV (03:00)
[2017-07-12 05:50] LABS: HEMATOCRIT 39.6 % (42.0-52.0); HEMOGLOBIN 13.1 g/dl (14.0-18.0); MEAN CORPUSCULAR HGB CONC 33.1 g/dl (32.0-36.5); MEAN CORPUSCULAR VOLUME 87.8 fl (80.0-96.0); RED BLOOD COUNT 4.51 10^6/uL (4.30-6.10); RED CELL DISTRIBUTION WIDTH 13.7 % (11.5-14.5); WHITE BLOOD COUNT 10.7 10^3/uL (4.0-10.0)
[2017-07-12 05:56] LABS: PLATELET COUNT, AUTOMATED 381 10^3/uL (150-450)
[2017-07-12] MEDS: METOPROLOL TART 25 MG TABLET PO ×5 (06:00→23:46)
[2017-07-12 06:33] LABS: ACETONE/KETONE 5.69 MG/DL (<2.81); ALBUMIN 2.3 GM/DL (3.2-5.2); ALBUMIN/GLOBULIN RATIO 0.59 (1.00-1.93); ALKALINE PHOSPHATASE 66 U/L (45-117); ALT/SGPT 11 U/L (12-78); ANION GAP 7 MEQ/L (8-16); AST/SGOT 8 U/L (7-37); BILIRUBIN,TOTAL 0.3 MG/DL (0.2-1.0); BLOOD UREA NITROGEN 37 MG/DL (7-18); CALCIUM LEVEL 8.3 MG/DL (8.8-10.2); CARBON DIOXIDE LEVEL 30 MEQ/L (21-32); CHLORIDE LEVEL 102 MEQ/L (98-107); CREATININE FOR GFR 1.42 MG/DL (0.70-1.30); GLUCOSE, FASTING 118 MG/DL (70-100); MAGNESIUM LEVEL 1.9 MG/DL (1.8-2.4); POTASSIUM SERUM 4.5 MEQ/L (3.5-5.1); SODIUM LEVEL 139 MEQ/L (136-145); TOTAL PROTEIN 6.2 GM/DL (6.4-8.2)
[2017-07-12] MEDS: ADVAIR HFA 230/21MCG INHALER INH ×2 (08:06→21:16)
[2017-07-12] MEDS: BUDESONIDE 0.5 MG/2 ML INHALATION SUSPENSION INH ×2 (08:06→21:16)
[2017-07-12] MEDS: VANCOMYCIN HCL 1,000 MG, VIAL MATE ADAPTER 1 EACH in D5W 250 ML IV (08:33)
[2017-07-12] MEDS: rOPINIRole 0.25 MG TAB(REQUIP) PO (08:33)
[2017-07-12] MEDS: HumaLOG INSULIN (NovoLOG) PER UNIT SC ×4 (08:33→20:44)
[2017-07-12] MEDS: predniSONE 10 MG TAB PO (08:33)
[2017-07-12] MEDS: BACLOFEN 10 MG TAB PO ×2 (08:34→20:44)
[2017-07-12] MEDS: VITAMIN D 1,000 INTERNATIONAL UNITS TABLET PO (08:34)
[2017-07-12] MEDS: MEMANTINE 5MG TABLET (NAMENDA) PO ×2 (08:34→20:43)
[2017-07-12] MEDS: TROSPIUM 20 MG TAB PO ×2 (08:34→20:44)
[2017-07-12] MEDS: TAMSULOSIN 0.4 MG CAP PO (08:34)
[2017-07-12] MEDS: MULTIVITAMINS/MINERALS THERAP 1 TAB PO (08:34)
[2017-07-12] MEDS: GABAPENTIN 300 MG CAP PO ×2 (08:34→20:43)
[2017-07-12] MEDS: ASPIRIN 81 MG CHEW TABLET PO (08:34)
[2017-07-12] MEDS: NYSTATIN CREAM 15 GM TOP ×3 (08:35→20:43)
[2017-07-12 08:40] LABS: PARTIAL THROMBOPLASTIN TIME 27.3 SECONDS (26.8-37.9)
[2017-07-12] MEDS: INCRUSE ELLIPTA INHALER (PATIENT'S OWN MED) INH (09:00)
[2017-07-12 09:06] LABS: PHOSPHORUS LEVEL 2.4 MG/DL (2.5-4.9)
[2017-07-12] MEDS: SODIUM CHLORIDE 0.9% 1000 ML IV (10:26)
[2017-07-12] MEDS ORDERED: PROHANCE 279.3MG/ML 15ML VIAL (A9576) As Ordered (11:21)
[2017-07-12 13:19] LABS: BEDSIDE GLUCOSE 248 MG/DL (83-110)
[2017-07-12] MEDS: HEPARIN DRIP 25,000 UNITS in APPROPRIATE DILUENT 1 EA IV (14:24)
[2017-07-12 15:41] LABS: PARTIAL THROMBOPLASTIN TIME 64.3 SECONDS (26.8-37.9)
[2017-07-12] MEDS: PYRIDOXINE 50 MG TAB PO (16:35)
[2017-07-12 17:03] LABS: BEDSIDE GLUCOSE 284 MG/DL (83-110)
[2017-07-12] MEDS: LEVEMIR (INSULIN DETEMIR) 1 UNITS/0.01ML SC (20:43)
[2017-07-12] MEDS: DONEPEZIL 5 MG TAB PO (20:44)
[2017-07-12 20:47] LABS: BEDSIDE GLUCOSE 266 MG/DL (83-110)
[2017-07-12] MEDS: ANEXSIA, NORCO 7.5MG/325MG TABLET(HYDROCODONE/APAP) PO (21:06)
[2017-07-12 22:41] LABS: PARTIAL THROMBOPLASTIN TIME 121.3 SECONDS (26.8-37.9)
[2017-07-13] MEDS: IPRATROPIUM 0.5MG/ALBUTEROL 2.5MG INH SOL UD 3ML (DUONEB)(J7620) NEB ×4 (02:00→20:00)
[2017-07-13] MEDS: CEFEPIME HCL 1 GM in APPROPRIATE DILUENT 1 EA IV (02:43)
[2017-07-13] MEDS: METOPROLOL TART 25 MG TABLET PO ×4 (05:04→23:30)
[2017-07-13 05:58] LABS: HEMATOCRIT 36.4 % (42.0-52.0); HEMOGLOBIN 12.1 g/dl (14.0-18.0); MEAN CORPUSCULAR HEMOGLOBIN 29.3 pg (27.0-33.0); MEAN CORPUSCULAR HGB CONC 33.2 g/dl (32.0-36.5); MEAN CORPUSCULAR VOLUME 88.1 fl (80.0-96.0); PLATELET COUNT, AUTOMATED 334 10^3/uL (150-450); RED BLOOD COUNT 4.13 10^6/uL (4.30-6.10); RED CELL DISTRIBUTION WIDTH 13.7 % (11.5-14.5); WHITE BLOOD COUNT 8.5 10^3/uL (4.0-10.0)
[2017-07-13 06:15] LABS: PARTIAL THROMBOPLASTIN TIME 87.9 SECONDS (26.8-37.9)
[2017-07-13 06:21] LABS: ALBUMIN 2.1 GM/DL (3.2-5.2); ALKALINE PHOSPHATASE 62 U/L (45-117); ALT/SGPT 10 U/L (12-78); ANION GAP 5 MEQ/L (8-16); AST/SGOT 5 U/L (7-37); BILIRUBIN,TOTAL 0.3 MG/DL (0.2-1.0); BLOOD UREA NITROGEN 20 MG/DL (7-18); CALCIUM LEVEL 8.3 MG/DL (8.8-10.2); CARBON DIOXIDE LEVEL 30 MEQ/L (21-32); CHLORIDE LEVEL 103 MEQ/L (98-107); GLOMERULAR FILTRATION RATE > 60.0 (>42); GLUCOSE, FASTING 203 MG/DL (70-100); MAGNESIUM LEVEL 1.7 MG/DL (1.8-2.4); POTASSIUM SERUM 3.4 MEQ/L (3.5-5.1); SODIUM LEVEL 138 MEQ/L (136-145); TOTAL PROTEIN 6.3 GM/DL (6.4-8.2)
[2017-07-13] MEDS: BUDESONIDE 0.5 MG/2 ML INHALATION SUSPENSION INH ×2 (08:00→20:00)
[2017-07-13] MEDS: HumaLOG INSULIN (NovoLOG) PER UNIT SC ×4 (08:43→21:09)
[2017-07-13] MEDS: HEPARIN DRIP 25,000 UNITS in APPROPRIATE DILUENT 1 EA IV (08:43)
[2017-07-13] MEDS: MAG SULF 1GM/100ML (MAG RUN) 1 GM in APPROPRIATE DILUENT 1 EA IV (08:43)
[2017-07-13] MEDS: ASPIRIN 81 MG CHEW TABLET PO (08:43)
[2017-07-13] MEDS: predniSONE 10 MG TAB PO (08:44)
[2017-07-13] MEDS: TROSPIUM 20 MG TAB PO ×2 (08:44→21:07)
[2017-07-13] MEDS: rOPINIRole 0.25 MG TAB(REQUIP) PO (08:44)
[2017-07-13] MEDS: POTASSIUM CHLORIDE 10 MEQ SR TABLET PO (08:44)
[2017-07-13] MEDS: TAMSULOSIN 0.4 MG CAP PO (08:44)
[2017-07-13] MEDS: MULTIVITAMINS/MINERALS THERAP 1 TAB PO (08:45)
[2017-07-13] MEDS: GABAPENTIN 300 MG CAP PO ×2 (08:45→21:08)
[2017-07-13] MEDS: MEMANTINE 5MG TABLET (NAMENDA) PO ×2 (08:45→21:07)
[2017-07-13] MEDS: BACLOFEN 10 MG TAB PO ×2 (08:45→21:07)
[2017-07-13] MEDS: PYRIDOXINE 50 MG TAB PO (08:45)
[2017-07-13] MEDS: VITAMIN D 1,000 INTERNATIONAL UNITS TABLET PO (08:47)
[2017-07-13] MEDS: ADVAIR HFA 230/21MCG INHALER INH ×2 (08:53→21:02)
[2017-07-13] MEDS: INCRUSE ELLIPTA INHALER (PATIENT'S OWN MED) INH (09:00)
[2017-07-13 09:04] LABS: PHOSPHORUS LEVEL 2.3 MG/DL (2.5-4.9)
[2017-07-13 09:07] LABS: VANCOMYCIN LEVEL TROUGH 9.5 UG/ML (10.0-20.0)
[2017-07-13] MEDS: VANCOMYCIN HCL 1,000 MG, VIAL MATE ADAPTER 1 EACH in D5W 250 ML IV (10:28)
[2017-07-13] MEDS: NYSTATIN CREAM 15 GM TOP ×3 (10:28→21:09)
[2017-07-13 12:14] LABS: BEDSIDE GLUCOSE 299 MG/DL (83-110)
[2017-07-13 12:21] LABS: PARTIAL THROMBOPLASTIN TIME 39.8 SECONDS (26.8-37.9)
[2017-07-13] MEDS: LevoFLOXacin 750 MG TABLET PO (12:35)
[2017-07-13] MEDS ORDERED: SLF 3 ML SYR IV (14:00)
[2017-07-13] MEDS: SLF 3 ML SYR IV ×2 (14:00→21:09)
[2017-07-13 16:53] LABS: BEDSIDE GLUCOSE 308 MG/DL (83-110)
[2017-07-13] MEDS: APIXABAN 5 MG TAB (ELIQUIS) PO (21:07)
[2017-07-13] MEDS: DONEPEZIL 5 MG TAB PO (21:08)
[2017-07-13] MEDS: LEVEMIR (INSULIN DETEMIR) 1 UNITS/0.01ML SC (21:09)
[2017-07-13 22:05] LABS: BEDSIDE GLUCOSE 441 MG/DL (83-110)
[2017-07-14] MEDS: IPRATROPIUM 0.5MG/ALBUTEROL 2.5MG INH SOL UD 3ML (DUONEB)(J7620) NEB ×4 (01:14→20:00)
[2017-07-14 04:06] LABS: APPEARANCE, URINE CLEAR (CLEAR); BACTERIA, URINE AUTO NEGATIVE (NEGATIVE); BILIRUBIN, URINE AUTO NEGATIVE (NEGATIVE); BLOOD, URINE BLOOD 2+ (NEGATIVE); COLOR, URINE YELLOW (YELLOW); GLUCOSE, URINE (UA) AUTO 3+ mg/dL (NEGATIVE); KETONE, URINE AUTO NEGATIVE (NEGATIVE); LEUKOCYTE ESTERASE, URINE AUTO 1+ (NEGATIVE); NITRITE, URINE AUTO NEGATIVE (NEGATIVE); PROTEIN, URINE AUTO NEGATIVE (NEGATIVE); RBC, URINE AUTO 19 /HPF (0-3); SPECIFIC GRAVITY URINE AUTO 1.014 (1.002-1.035); SQUAMOUS EPITHELIAL CELL UR AU 0 /HPF (0-6); UROBILINOGEN, URINE AUTO 0.2 mg/dL (0.0-2.0); WBC, URINE AUTO 52 /HPF (0-3); YEAST LIKE CELL URINE AUTO SMALL
[2017-07-14] MEDS: METOPROLOL TART 25 MG TABLET PO ×4 (05:32→23:18)
[2017-07-14] MEDS: SLF 3 ML SYR IV ×3 (05:32→22:43)
[2017-07-14] MEDS: LevoFLOXacin 750 MG TABLET PO (05:32)
[2017-07-14 06:16] LABS: HEMOGLOBIN 11.7 g/dl (14.0-18.0); MEAN CORPUSCULAR HEMOGLOBIN 29.3 pg (27.0-33.0); MEAN CORPUSCULAR HGB CONC 33.4 g/dl (32.0-36.5); MEAN CORPUSCULAR VOLUME 87.7 fl (80.0-96.0); PLATELET COUNT, AUTOMATED 324 10^3/uL (150-450); RED BLOOD COUNT 3.99 10^6/uL (4.30-6.10); RED CELL DISTRIBUTION WIDTH 13.5 % (11.5-14.5)
[2017-07-14 06:41] LABS: ALBUMIN 2.2 GM/DL (3.2-5.2); ALBUMIN/GLOBULIN RATIO 0.52 (1.00-1.93); ALKALINE PHOSPHATASE 67 U/L (45-117); ALT/SGPT 9 U/L (12-78); ANION GAP 6 MEQ/L (8-16); AST/SGOT 11 U/L (7-37); BILIRUBIN,TOTAL 0.3 MG/DL (0.2-1.0); BLOOD UREA NITROGEN 13 MG/DL (7-18); CALCIUM LEVEL 8.1 MG/DL (8.8-10.2); CARBON DIOXIDE LEVEL 29 MEQ/L (21-32); CHLORIDE LEVEL 99 MEQ/L (98-107); GLOMERULAR FILTRATION RATE > 60.0 (>42); GLUCOSE, FASTING 279 MG/DL (70-100); MAGNESIUM LEVEL 1.6 MG/DL (1.8-2.4); POTASSIUM SERUM 3.9 MEQ/L (3.5-5.1); SODIUM LEVEL 134 MEQ/L (136-145); TOTAL PROTEIN 6.4 GM/DL (6.4-8.2)
[2017-07-14] MEDS: BUDESONIDE 0.5 MG/2 ML INHALATION SUSPENSION INH ×2 (08:00→20:00)
[2017-07-14] MEDS: MAG SULF 1GM/100ML (MAG RUN) 1 GM in APPROPRIATE DILUENT 1 EA IV (08:20)
[2017-07-14] MEDS: HumaLOG INSULIN (NovoLOG) PER UNIT SC ×4 (08:20→21:00)
[2017-07-14] MEDS: APIXABAN 5 MG TAB (ELIQUIS) PO ×2 (08:22→22:43)
[2017-07-14] MEDS: predniSONE 10 MG TAB PO (08:22)
[2017-07-14] MEDS: BACLOFEN 10 MG TAB PO ×2 (08:22→22:43)
[2017-07-14] MEDS: MEMANTINE 5MG TABLET (NAMENDA) PO ×2 (08:22→22:43)
[2017-07-14] MEDS: ASPIRIN 81 MG CHEW TABLET PO (08:22)
[2017-07-14] MEDS: TAMSULOSIN 0.4 MG CAP PO (08:22)
[2017-07-14] MEDS: TROSPIUM 20 MG TAB PO ×2 (08:23→22:42)
[2017-07-14] MEDS: VITAMIN D 1,000 INTERNATIONAL UNITS TABLET PO (08:23)
[2017-07-14] MEDS: GABAPENTIN 300 MG CAP PO ×2 (08:23→22:43)
[2017-07-14] MEDS: rOPINIRole 0.25 MG TAB(REQUIP) PO (08:23)
[2017-07-14] MEDS: PYRIDOXINE 50 MG TAB PO (08:23)
[2017-07-14] MEDS: LEVEMIR (INSULIN DETEMIR) 1 UNITS/0.01ML SC ×3 (08:23→21:00)
[2017-07-14] MEDS: FINASTERIDE 5 MG TAB PO (08:23)
[2017-07-14] MEDS: MULTIVITAMINS/MINERALS THERAP 1 TAB PO (08:23)
[2017-07-14] MEDS: NYSTATIN CREAM 15 GM TOP ×3 (08:24→21:00)
[2017-07-14] MEDS: ADVAIR HFA 230/21MCG INHALER INH ×2 (09:30→21:00)
[2017-07-14] MEDS: CALCIUM GLUCONATE 1,000 MG in D5W MINI-BAG PLUS 100 ML IV ×2 (10:00→11:00)
[2017-07-14] MEDS: INCRUSE ELLIPTA INHALER (PATIENT'S OWN MED) INH (10:11)
[2017-07-14 10:30] LABS: BEDSIDE GLUCOSE 409 MG/DL (83-110)
[2017-07-14 11:54] LABS: BEDSIDE GLUCOSE 376 MG/DL (83-110)
[2017-07-14] MEDS: CALCIUM CARBONATE 500 MG CHEW U/D PO ×2 (12:22→18:26)
[2017-07-14 17:55] LABS: BEDSIDE GLUCOSE 300 MG/DL (83-110)
[2017-07-14 22:25] LABS: BEDSIDE GLUCOSE 304 MG/DL (83-110)
[2017-07-14] MEDS: DONEPEZIL 5 MG TAB PO (22:43)
[2017-07-15] MEDS: IPRATROPIUM 0.5MG/ALBUTEROL 2.5MG INH SOL UD 3ML (DUONEB)(J7620) NEB ×4 (02:00→23:00)
[2017-07-15] MEDS: ALBUTEROL SULFATE 2.5 MG/0.5 ML INH NEB SOLN NEB (02:04)
[2017-07-15] MEDS: METOPROLOL TART 25 MG TABLET PO ×3 (06:16→17:24)
[2017-07-15] MEDS: SLF 3 ML SYR IV ×3 (06:16→22:15)
[2017-07-15] MEDS: LevoFLOXacin 750 MG TABLET PO (06:16)
[2017-07-15 06:40] LABS: HEMATOCRIT 38.7 % (42.0-52.0); HEMOGLOBIN 12.7 g/dl (14.0-18.0); MEAN CORPUSCULAR HEMOGLOBIN 29.3 pg (27.0-33.0); MEAN CORPUSCULAR HGB CONC 32.8 g/dl (32.0-36.5); MEAN CORPUSCULAR VOLUME 89.2 fl (80.0-96.0); PLATELET COUNT, AUTOMATED 354 10^3/uL (150-450); RED BLOOD COUNT 4.34 10^6/uL (4.30-6.10); RED CELL DISTRIBUTION WIDTH 13.5 % (11.5-14.5); WHITE BLOOD COUNT 7.6 10^3/uL (4.0-10.0)
[2017-07-15 06:50] LABS: ALBUMIN 2.1 GM/DL (3.2-5.2); ALBUMIN/GLOBULIN RATIO 0.45 (1.00-1.93); ALKALINE PHOSPHATASE 70 U/L (45-117); ALT/SGPT 12 U/L (12-78); ANION GAP 3 MEQ/L (8-16); AST/SGOT 7 U/L (7-37); BILIRUBIN,TOTAL 0.2 MG/DL (0.2-1.0); BLOOD UREA NITROGEN 11 MG/DL (7-18); CALCIUM LEVEL 9.3 MG/DL (8.8-10.2); CARBON DIOXIDE LEVEL 36 MEQ/L (21-32); CHLORIDE LEVEL 101 MEQ/L (98-107); CREATININE FOR GFR 1.01 MG/DL (0.70-1.30); GLOMERULAR FILTRATION RATE > 60.0 (>42); GLUCOSE, FASTING 100 MG/DL (70-100); MAGNESIUM LEVEL 1.5 MG/DL (1.8-2.4); POTASSIUM SERUM 4.1 MEQ/L (3.5-5.1); SODIUM LEVEL 140 MEQ/L (136-145); TOTAL PROTEIN 6.8 GM/DL (6.4-8.2)
[2017-07-15] MEDS: HumaLOG INSULIN (NovoLOG) PER UNIT SC ×4 (07:17→21:00)
[2017-07-15] MEDS: BUDESONIDE 0.5 MG/2 ML INHALATION SUSPENSION INH ×2 (08:00→23:30)
[2017-07-15] MEDS: VITAMIN D 1,000 INTERNATIONAL UNITS TABLET PO (08:39)
[2017-07-15] MEDS: rOPINIRole 0.25 MG TAB(REQUIP) PO (08:40)
[2017-07-15] MEDS: MULTIVITAMINS/MINERALS THERAP 1 TAB PO (08:40)
[2017-07-15] MEDS: FINASTERIDE 5 MG TAB PO (08:40)
[2017-07-15] MEDS: MEMANTINE 5MG TABLET (NAMENDA) PO ×2 (08:41→22:10)
[2017-07-15] MEDS: TAMSULOSIN 0.4 MG CAP PO (08:41)
[2017-07-15] MEDS: ASPIRIN 81 MG CHEW TABLET PO (08:41)
[2017-07-15] MEDS: BACLOFEN 10 MG TAB PO ×2 (08:41→22:11)
[2017-07-15] MEDS: CALCIUM CARBONATE 500 MG CHEW U/D PO ×3 (08:41→17:24)
[2017-07-15] MEDS: APIXABAN 5 MG TAB (ELIQUIS) PO ×2 (08:41→22:11)
[2017-07-15] MEDS: TROSPIUM 20 MG TAB PO ×2 (08:41→22:10)
[2017-07-15] MEDS: GABAPENTIN 300 MG CAP PO ×2 (08:41→22:11)
[2017-07-15] MEDS: predniSONE 10 MG TAB PO (08:41)
[2017-07-15] MEDS: PYRIDOXINE 50 MG TAB PO (08:42)
[2017-07-15] MEDS: MAGNESIUM CHLORIDE 64 MG TABCR (SLO MAG) PO (08:43)
[2017-07-15] MEDS: NYSTATIN CREAM 15 GM TOP ×3 (08:43→21:00)
[2017-07-15] MEDS: LEVEMIR (INSULIN DETEMIR) 1 UNITS/0.01ML SC ×2 (08:43→22:13)
[2017-07-15] MEDS: INCRUSE ELLIPTA INHALER (PATIENT'S OWN MED) INH (08:47)
[2017-07-15] MEDS: ADVAIR HFA 230/21MCG INHALER INH ×2 (08:47→22:00)
[2017-07-15] MEDS ORDERED: LEVEMIR (INSULIN DETEMIR) 1 UNITS/0.01ML SC (09:00)
[2017-07-15 11:27] LABS: BEDSIDE GLUCOSE 205 MG/DL (83-110)
[2017-07-15 16:58] LABS: BEDSIDE GLUCOSE 133 MG/DL (83-110)
[2017-07-15] MEDS: DONEPEZIL 5 MG TAB PO (22:11)
[2017-07-15] MEDS: METOPROLOL TART 50 MG TAB PO (22:12)
[2017-07-16] MEDS: IPRATROPIUM 0.5MG/ALBUTEROL 2.5MG INH SOL UD 3ML (DUONEB)(J7620) NEB ×3 (01:00→13:38)
[2017-07-16 01:11] LABS: BEDSIDE GLUCOSE 246 MG/DL (83-110)
[2017-07-16 05:15] LABS: HEMATOCRIT 37.6 % (42.0-52.0); HEMOGLOBIN 12.2 g/dl (14.0-18.0); MEAN CORPUSCULAR HGB CONC 32.4 g/dl (32.0-36.5); MEAN CORPUSCULAR VOLUME 89.3 fl (80.0-96.0); PLATELET COUNT, AUTOMATED 411 10^3/uL (150-450); RED BLOOD COUNT 4.21 10^6/uL (4.30-6.10); RED CELL DISTRIBUTION WIDTH 13.9 % (11.5-14.5); WHITE BLOOD COUNT 8.5 10^3/uL (4.0-10.0)
[2017-07-16 05:31] LABS: ALBUMIN 2.1 GM/DL (3.2-5.2); ALBUMIN/GLOBULIN RATIO 0.47 (1.00-1.93); ALKALINE PHOSPHATASE 65 U/L (45-117); ALT/SGPT 15 U/L (12-78); ANION GAP 6 MEQ/L (8-16); AST/SGOT 15 U/L (7-37); BILIRUBIN,TOTAL < 0.1 MG/DL (0.2-1.0); BLOOD UREA NITROGEN 17 MG/DL (7-18); C REACTIVE PROTEIN QUANTITATIV 6.44 MG/DL (0.00-0.30); CALCIUM LEVEL 9.4 MG/DL (8.8-10.2); CARBON DIOXIDE LEVEL 32 MEQ/L (21-32); CHLORIDE LEVEL 100 MEQ/L (98-107); CREATININE FOR GFR 1.01 MG/DL (0.70-1.30); GLOMERULAR FILTRATION RATE > 60.0 (>42); GLUCOSE, FASTING 286 MG/DL (70-100); MAGNESIUM LEVEL 1.6 MG/DL (1.8-2.4); POTASSIUM SERUM 3.9 MEQ/L (3.5-5.1); SODIUM LEVEL 138 MEQ/L (136-145); TOTAL PROTEIN 6.6 GM/DL (6.4-8.2)
[2017-07-16] MEDS: LevoFLOXacin 750 MG TABLET PO (06:16)
[2017-07-16] MEDS: SLF 3 ML SYR IV ×2 (06:16→13:19)
[2017-07-16 06:37] LABS: BEDSIDE GLUCOSE 247 MG/DL (83-110)
[2017-07-16] MEDS: BUDESONIDE 0.5 MG/2 ML INHALATION SUSPENSION INH (08:00)
[2017-07-16] MEDS: HumaLOG INSULIN (NovoLOG) PER UNIT SC ×2 (08:07→12:10)
[2017-07-16] MEDS: GABAPENTIN 300 MG CAP PO (08:07)
[2017-07-16] MEDS: BACLOFEN 10 MG TAB PO (08:07)
[2017-07-16] MEDS: PYRIDOXINE 50 MG TAB PO (08:08)
[2017-07-16] MEDS: ASPIRIN 81 MG CHEW TABLET PO (08:08)
[2017-07-16] MEDS: MEMANTINE 5MG TABLET (NAMENDA) PO (08:08)
[2017-07-16] MEDS: TROSPIUM 20 MG TAB PO (08:08)
[2017-07-16] MEDS: predniSONE 10 MG TAB PO (08:08)
[2017-07-16] MEDS: CALCIUM CARBONATE 500 MG CHEW U/D PO ×2 (08:08→12:11)
[2017-07-16] MEDS: FINASTERIDE 5 MG TAB PO (08:08)
[2017-07-16] MEDS: VITAMIN D 1,000 INTERNATIONAL UNITS TABLET PO (08:08)
[2017-07-16] MEDS: rOPINIRole 0.25 MG TAB(REQUIP) PO (08:08)
[2017-07-16] MEDS: APIXABAN 5 MG TAB (ELIQUIS) PO (08:09)
[2017-07-16] MEDS: MULTIVITAMINS/MINERALS THERAP 1 TAB PO (08:09)
[2017-07-16] MEDS: METOPROLOL TART 50 MG TAB PO (08:09)
[2017-07-16] MEDS: TAMSULOSIN 0.4 MG CAP PO (08:09)
[2017-07-16] MEDS: NYSTATIN CREAM 15 GM TOP (08:10)
[2017-07-16] MEDS: LEVEMIR (INSULIN DETEMIR) 1 UNITS/0.01ML SC (08:10)
[2017-07-16] MEDS: MAGNESIUM CHLORIDE 64 MG TABCR (SLO MAG) PO ×2 (08:10→10:00)
[2017-07-16] MEDS: ADVAIR HFA 230/21MCG INHALER INH (08:35)
[2017-07-16] MEDS: INCRUSE ELLIPTA INHALER (PATIENT'S OWN MED) INH (08:35)
[2017-07-16] MEDS: MAG SULF 1GM/100ML (MAG RUN) 1 GM in APPROPRIATE DILUENT 1 EA IV (09:00)
[2017-07-16 12:03] LABS: BEDSIDE GLUCOSE 203 MG/DL (83-110)
[2017-07-16] MEDS ORDERED: LEVEMIR (INSULIN DETEMIR) 1 UNITS/0.01ML SC (21:00)
[2017-07-16] MEDS ORDERED: MAGNESIUM CHLORIDE 64 MG TABCR (SLO MAG) PO (21:00)
== END 2017-07-16 15:00 | disposition home or self-care (01) | DRG 637 ==
LOC: M MSPAV 07-14 15:20 → M ED 11:21 → M PCU 07-12 16:42 → M ED INP 16:01 → M ICU 18:53
DX: E11.10 Type 2 diabetes mellitus with ketoacidosis without coma (principal); I63.9 Cerebral infarction, unspecified; J15.9 Unspecified bacterial pneumonia; E87.1 Hypo-osmolality and hyponatremia; N17.9 Acute kidney failure, unspecified; J44.0 Chronic obstructive pulmonary disease with (acute) lower respiratory infection; I48.91 Unspecified atrial fibrillation; N18.3 Chronic kidney disease, stage 3 (moderate); E83.51 Hypocalcemia; Z91.19 Patient's noncompliance with other medical treatment and regimen; Z79.4 Long term (current) use of insulin; I12.9 Hypertensive chronic kidney disease with stage 1 through stage 4 chronic kidney disease, or unspecified chronic kidney disease; I25.10 Atherosclerotic heart disease of native coronary artery without angina pectoris; G47.33 Obstructive sleep apnea (adult) (pediatric); E78.5 Hyperlipidemia, unspecified; E87.5 Hyperkalemia; Z79.899 Other long term (current) drug therapy; Z79.52 Long term (current) use of systemic steroids; Z87.891 Personal history of nicotine dependence; Z79.82 Long term (current) use of aspirin; F02.80 Dementia in other diseases classified elsewhere, unspecified severity, without behavioral disturbance, psychotic disturbance, mood disturbance, and anxiety; G30.9 Alzheimer's disease, unspecified

== ENCOUNTER → 2017-11-07 | Outpatient (REF) | payer MEDICARE, OTHER ==
[2017-11-07 12:08] LABS: ALBUMIN 3.5 GM/DL (3.2-5.2); ALKALINE PHOSPHATASE 91 U/L (45-117); ALT/SGPT 11 U/L (12-78); ANION GAP 5 MEQ/L (8-16); AST/SGOT 10 U/L (7-37); BILIRUBIN,TOTAL 0.4 MG/DL (0.2-1.0); BLOOD UREA NITROGEN 23 MG/DL (7-18); CALCIUM LEVEL 9.1 MG/DL (8.8-10.2); CARBON DIOXIDE LEVEL 33 MEQ/L (21-32); CHLORIDE LEVEL 100 MEQ/L (98-107); CHOLESTEROL LEVEL 189 MG/DL (<200); CHOLESTEROL RISK RATIO 3.634 (<5); CREATININE FOR GFR 1.24 MG/DL (0.70-1.30); GLOMERULAR FILTRATION RATE > 60.0 (>42); GLUCOSE, FASTING 115 MG/DL (70-100); HDL CHOLESTEROL 52 MG/DL (>40); LDL CHOLESTEROL 110.2 MG/DL (<100); NON-HDL-C 137 MG/DL; POTASSIUM SERUM 4.5 MEQ/L (3.5-5.1); SODIUM LEVEL 138 MEQ/L (136-145); TOTAL PROTEIN 7.4 GM/DL (6.4-8.2); TRIGLYCERIDES LEVEL 134 MG/DL (<150)
[2017-11-07 12:41] LABS: ESTIMATED AVERAGE GLUCOSE 318 MG/DL (60-110); HEMOGLOBIN A1c 12.7 %
== END ==
LOC: M SFHCCLAY 08:41
DX: E11.40 Type 2 diabetes mellitus with diabetic neuropathy, unspecified (principal)
CPT/HCPCS: 80053

== ENCOUNTER → 2018-02-10 | Outpatient (REF) | payer MEDICARE, OTHER | LOC: M SFHCCLAY 09:52 | DX: E11.40 Type 2 diabetes mellitus with diabetic neuropathy, unspecified (principal); Z53.8 Procedure and treatment not carried out for other reasons ==

== ENCOUNTER 2018-03-05 18:38 | Emergency (ER) | payer MEDICARE, OTHER ==
[2018-03-05] MEDS: DEXTROSE 50% 50 ML SYRINGE IV (18:52)
[2018-03-05 19:17] LABS: BEDSIDE GLUCOSE 104 MG/DL (83-110)
[2018-03-06 12:52] LABS: BEDSIDE GLUCOSE 30 MG/DL (83-110)
== END 2018-03-05 19:31 | disposition home or self-care (01) ==
LOC: M ED 18:38
DX: E11.641 Type 2 diabetes mellitus with hypoglycemia with coma (principal); I48.91 Unspecified atrial fibrillation; I25.10 Atherosclerotic heart disease of native coronary artery without angina pectoris; I10 Essential (primary) hypertension; F03.90 Unspecified dementia, unspecified severity, without behavioral disturbance, psychotic disturbance, mood disturbance, and anxiety; N40.0 Benign prostatic hyperplasia without lower urinary tract symptoms; J44.9 Chronic obstructive pulmonary disease, unspecified; K21.9 Gastro-esophageal reflux disease without esophagitis; N28.9 Disorder of kidney and ureter, unspecified; Z95.5 Presence of coronary angioplasty implant and graft; Z87.891 Personal history of nicotine dependence; Z79.82 Long term (current) use of aspirin; Z79.4 Long term (current) use of insulin; Z79.899 Other long term (current) drug therapy
CPT/HCPCS: 36415

== ENCOUNTER → 2018-07-31 | Outpatient (REF) | payer MEDICARE, OTHER ==
[~2018-07-31] MED LIST changes: -AMLO5TAB2 PO; +AMLO5TAB6 PO; +BACL10TA2 PO; -DETR1TAB4 PO; +DETR1TAB5 PO; +ELIQ5TAB PO; +FINA5TAB2 PO; +FLOM0.4C39 PO; +FOSI20TA3 PO; -FOSI40TA PO; +FOSI40TA2 PO; +HYDR-3716 PO; +IPRA0.00 INH; +LOPR1TAB6 PO; +MAGN64TASA PO; +METF500T13 PO; +PATIENT COMMENT; +PRED10TA2 PO; +REQU0.5T PO; -REQU1TAB15 PO; -ROPI5TAB PO; +ROPI5TAB3 PO; -SULF1TAB23 PO; +SULF1TAB93 PO; +TRES1INJ2 SC; +TROS20TA3 PO
[2018-07-31 12:20] LABS: ALBUMIN 3.1 GM/DL (3.2-5.2); ALT/SGPT 12 U/L (12-78); BILIRUBIN,TOTAL 0.4 MG/DL (0.2-1.0); BLOOD UREA NITROGEN 21 MG/DL (7-18); CALCIUM LEVEL 8.6 MG/DL (8.8-10.2); CARBON DIOXIDE LEVEL 32 MEQ/L (21-32); CHLORIDE LEVEL 97 MEQ/L (98-107); CREATININE FOR GFR 1.06 MG/DL (0.70-1.30); GLOMERULAR FILTRATION RATE > 60.0 (>42); GLUCOSE, FASTING 233 MG/DL (70-100); POTASSIUM SERUM 4.8 MEQ/L (3.5-5.1); SODIUM LEVEL 135 MEQ/L (136-145); TOTAL PROTEIN 7.1 GM/DL (6.4-8.2)
[2018-07-31 12:26] LABS: HEMOGLOBIN A1c > 16.0 %
== END ==
LOC: M SFHCCLAY 09:09
PROVIDERS: ATTEND Family Medicine
DX: E11.40 Type 2 diabetes mellitus with diabetic neuropathy, unspecified (principal)
CPT/HCPCS: 80053; 83036; G0463

== ENCOUNTER 2019-05-06 10:28 | Inpatient (IN) | payer MEDICARE, OTHER ==
[~2019-05-06] VITALS: Ht 190.5 cm; Wt 84.2 kg
[~2019-05-06 10:28] MED LIST changes: -ASPI81CH PO; +ASPI81CH49 PO; -FOSI20TA3 PO; +FOSI20TA60 PO; -FOSI40TA2 PO; +FOSI40TA3 PO; +GLYB-147 PO; -GLYB5TA PO; +HYDR-2541 PO; -HYDR25TAB PO; +METO-346 PO; +METO1TAB63 PO; -METO25TAB PO; -NORC1TAB4 PO; +NORC1TAB7 PO; -OMEP40CA2 PO; +OMEP40CA97 PO
--- NOTE | 2019-05-06 11:23 | REP ---
Chest x-ray: Single view portable exam. History: Altered mental status. Cough. Comparison study: July 11, 2017. Findings: There is a coarse interstitial fibrosis pattern in the lung bases bilaterally, right greater than left. These are chronic changes. Right hemidiaphragm is elevated. There are bullous changes in the right upper lung zone. No definite new infiltrate. Cardiomediastinal silhouette is unremarkable. Impression: Bibasilar coarse pulmonary parenchymal fibrosis. Bullous changes on the right. No acute infiltrate. Electronically Signed by Mario Mckeon MD 05/06/2019 11:14 A
[2019-05-06] MEDS ORDERED: LIDOCAINE 2% 5ML JELLY UROJET TOP ONE (11:30)
[2019-05-06 11:43] LABS: BASO # 0.1 10^3/uL (0.0-0.2); BASO % 0.5 % (0.0-1.0); EOS % 0.3 % (0.0-3.0); HEMATOCRIT 48.9 % (42.0-52.0); HEMOGLOBIN 16.1 g/dl (13.5-17.5); LYMPH % 8.1 % (24.0-44.0); MEAN CORPUSCULAR HEMOGLOBIN 27.8 pg (27.0-33.0); MEAN CORPUSCULAR HGB CONC 32.9 g/dl (32.0-36.5); MEAN CORPUSCULAR VOLUME 84.3 fl (80.0-96.0); MONO # 1.4 10^3/uL (0.0-0.8); MONO % 11.2 % (0.0-5.0); NEUTROPHILS # 10.1 10^3/uL (1.5-8.5); NEUTROPHILS % 79.5 % (36.0-66.0); PLATELET COUNT, AUTOMATED 369 10^3/uL (150-450); WHITE BLOOD COUNT 12.7 10^3/uL (4.0-10.0)
[2019-05-06 12:16] LABS: ALT/SGPT 14 U/L (12-78); BILIRUBIN,DIRECT 0.1 MG/DL (0.0-0.2); BILIRUBIN,TOTAL 0.6 MG/DL (0.2-1.0); BLOOD UREA NITROGEN 32 MG/DL (7-18); CALCIUM LEVEL 9.3 MG/DL (8.8-10.2); CARBON DIOXIDE LEVEL 30 MEQ/L (21-32); CHLORIDE LEVEL 93 MEQ/L (98-107); CK-MB VALUE MASS 2.3 NG/ML (<3.6); CPK CREATINE PHOSPHOKINASE 49 U/L (39-308); CREATININE FOR GFR 1.81 MG/DL (0.70-1.30); GLOMERULAR FILTRATION RATE 39.1 (>42); GLUCOSE, FASTING 559 MG/DL (70-100); MB/CK RELATIVE INDEX 4.69 (< OR =4); POTASSIUM SERUM 4.7 MEQ/L (3.5-5.1); SODIUM LEVEL 134 MEQ/L (136-145); TOTAL PROTEIN 7.2 GM/DL (6.4-8.2); TROPONIN I < 0.02 NG/ML (< 0.10)
--- NOTE | 2019-05-06 12:17 | ECGEPIP ---
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
[2019-05-06 12:42] LABS: INFLUENZA A AMPLIFICATION NEGATIVE (NEGATIVE); INFLUENZA B AMPLIFICATION NEGATIVE (NEGATIVE)
[2019-05-06] MEDS ORDERED: HumuLIN R (REGULAR) INSULIN (NovoLIN R) **100U/ML** PER UNIT SC STA (12:47)
[2019-05-06] MEDS ORDERED: NS 1,000 ML IV ONE ×3 (13:15→17:00)
[2019-05-06] MEDS ORDERED: NS 500 ML IV ONE (13:30)
[2019-05-06] MEDS ORDERED: GLUCOSE 4 GM CHEW TABLET PO PRN (13:30)
[2019-05-06] MEDS ORDERED: LEVEMIR (INSULIN DETEMIR) 1 UNITS/0.01ML SC ONE (13:30)
[2019-05-06] MEDS ORDERED: GLUCAGON FOR INJ 1 MG VIAL (J1610) SC PRN (13:30)
[2019-05-06] MEDS ORDERED: DEXTROSE 50% 50 ML SYRINGE IV PRN (13:30)
[2019-05-06] MEDS ORDERED: ANEXSIA, NORCO 7.5MG/325MG TABLET(HYDROCODONE/APAP) PO PRN (13:30)
[2019-05-06] MEDS ORDERED: VENTAER INH (13:43)
[2019-05-06] MEDS ORDERED: ELIQ5TAB PO (13:43)
[2019-05-06] MEDS ORDERED: FOSI20TA79 PO (13:43)
[2019-05-06] MEDS ORDERED: LANTINJ4 SC (13:43)
[2019-05-06] MEDS ORDERED: LOPE1CAP5 PO (13:43)
[2019-05-06] MEDS ORDERED: FINA5TAB2 PO (13:43)
[2019-05-06] MEDS ORDERED: ROPI0.5T PO (13:43)
[2019-05-06] MEDS ORDERED: METO50TA7 PO (13:43)
[2019-05-06] MEDS ORDERED: MAGN64TASA PO (13:43)
[2019-05-06] MEDS ORDERED: COMMENTS (13:50)
[2019-05-06 14:42] VITALS: BP 153/75
[2019-05-06 16:20] VITALS: BP 135/69
[2019-05-06] MEDS: DONEPEZIL 5 MG TAB PO SCH (16:43)
[2019-05-06] MEDS ORDERED: HumaLOG INSULIN (NovoLOG) PER UNIT SC STA ×2 (16:48→18:33)
[2019-05-06] MEDS ORDERED: NS 1,000 ML IV SCH (18:00)
--- NOTE | 2019-05-06 18:46 | HPE ---
DATE OF ADMISSION: 05/06/2019 History is provided by the patient's . The patient is demented and unable to provide a history. CHIEF COMPLAINT: Recurrent falls, weakness, diarrhea. HISTORY OF PRESENT ILLNESS: This is a 73-year-old, DO NOT RESUSCITATE, DO NOT INTUBATE male, Medical Orders for Life Sustaining Treatment (MOLST) form has been signed, the patient's , Alejandrina, has consented to telephone order, phone number is [phone]. He was doing well and living at home with his . He ambulates without assistance but has a cane and a walker. He was in his usual state of health until this morning when the patient was found on the floor at 2:00 a.m. by the . The patient apparently was going to the bathroom and felt very weak. She found him sitting on the floor, disoriented. According to the , the patient was having diarrhea about 2 days ago. He soiled his pants twice during the same day and again had an episode yesterday. His sugars have been running high, usually over 300 at home on his home dose of insulin. His appetite has been increased. He has been eating quite a bit and drinking a lot. According to the patient's , he usually drinks five cups of coffee and drinks a quart of Crystal Light in the evening. He was drinking like "a camel." No nausea or vomiting. At home, he ate chicken, potatoes and corn last night and this morning ate two pancakes and hui. The patient appeared to be much more disoriented according to the and there have been no changes in his medications. He was seen by his primary care provider, Dr. Grimaldo, about 4 to 5 weeks ago and just changed inhalers. He is independent usually and he showers by himself, shaves and gets dressed. She otherwise denies any other recent contacts at home. He did complain of a cough, but she did not make anything of it as he has a chronic cough from a history of chronic obstructive pulmonary disease (COPD). There is no sputum production, fever or chills. No dysuria, urgency or frequency. In the emergency room, he was found to have acute kidney injury with creatinine of 1.8, slight increase in white count at 12.7, urinalysis was essentially negative leukocyte esterase, 2 WBC, 1+ bacteria. His glucose was uncontrolled with a glucose of 559, lactic acid was normal at 1.7. The hospitalist was called to admit for acute kidney injury, uncontrolled type 2 diabetes and worsening mental status with recent bouts of diarrhea. The patient's denied him taking any nonsteroidal antiinflammatory drugs at home -- ibuprofen, Aleve or Naprosyn. PAST MEDICAL HISTORY: 1. Obstructive sleep apnea. 2. COPD. 3. Chronic kidney disease stage III. 4. Type 2 diabetes. 5. Hypertensive heart disease. 6. Hyperlipidemia. 7. Coronary artery disease. 8. Degenerative disc disease. 9. Coronary stent placement. PAST SURGICAL HISTORY: 1. Upper teeth surgery, palate replacement. 2. Bilateral knee arthroscopies. 3. Coronary stents. 4. Colonoscopy and polyps. 5. Cataract surgery bilaterally. SOCIAL HISTORY: Lives with . Previously smoked cigarettes, a pack a day from age 13, quit in 2009, stopped drinking in 2009. Usually walks unassisted but does have a cane and a walker at home. Per the , he is independent with activities of daily living, can shave, shower and toilet by himself. FAMILY HISTORY: Heart disease on the father's side. Mother's side is unknown. Father at age 62 of coronary artery disease and myocardial infarction, hypertension, heart disease. Mother age 62 with hypertension, heart disease and stroke. The patient has a son and daughter. HOME MEDICATIONS: - albuterol two puffs every 4 hours as needed - Eliquis 5 mg twice a day - aspirin 81 mg daily - Baclofen 10 mg twice a day - Bismatrol 262 four times a day - budesonide 0.5 inhaled twice a day - vitamin D 2000 units daily - finasteride 5 mg daily - fosinopril 5 mg at night - gabapentin 1200 mg twice a day - Rebuck one tablet every 6 hours as needed - Lantus SoloStar 40 units in the morning - ipratropium albuterol one inhalation four times a day as needed - magnesium chloride 64 mg twice a day - Namenda 10 mg twice a day - metformin 500 mg twice a day - metoprolol 50 mg at night - multivitamin one tablet daily - nitroglycerin 0.4 mg as needed - pyridoxine 100 mg daily - ropinirole 0.5 at night - Advair 500/50 one puff inhaled twice a day - tamsulosin 0.4 mg daily - donepezil 10 mg at night - loperamide 2 mg four times a day as needed for diarrhea REVIEW OF SYSTEMS: As per history of present illness. ALLERGIES: No known drug allergies. PHYSICAL EXAMINATION: VITAL SIGNS: Temperature 96.5, pulse 105, respiratory rate 20, blood pressure 135/60, 92% on 3 liters nasal cannula. GENERAL: The patient is awake, alert, and oriented to himself only. He thinks that he is at home and it is 1927. The patient stated that it was summertime. He has dry mucous membranes with chapped lips, poor dentition and is edentulous in the upper teeth. No jugular venous distention (JVD). No thyromegaly. LUNGS: Diminished. Coarse rhonchi. HEART: S1, S2. Sinus rhythm. ABDOMEN: Soft, nontender, nondistended. EXTREMITIES: No pitting edema. LABORATORY DATA: White count 12.7, hemoglobin 16, hematocrit 48, platelet count 369. Sodium 134, potassium 4.7, chloride 93, bicarbonate 30, BUN 32, creatinine 1.8, glucose of 559. Lactic acid 1.7. Troponin less than 0.02. Total protein 7.2, albumin 3.0. Blood cultures, two sets, pending. Urinalysis showed hazy, yellow appearance, pH of 5, specific gravity 1.027, 2+ protein, 3+ glucose, 1+ ketones, 1+ blood, negative nitrites, bilirubin, 1+ bacteria, 2 WBCs, 2 RBCs, urine culture not sent. Chest x-ray showed bibasilar coarse pulmonary parenchymal fibrosis, bullous changes on the right, no acute infiltrate. Renal ultrasound is pending. ASSESSMENT AND PLAN: This is a 73-year-old male with a history of coronary artery disease, diabetes, hypertension, hyperlipidemia, chronic oxygen dependent, chronic obstructive pulmonary disease (COPD), vitamin D deficiency, allergic rhinitis, sleep apnea, degenerative disc disease of the lumbar spine, bilateral knee arthritis, enlarged prostate, atrial fibrillation, chronic kidney disease stage III, left frontal ischemic stroke, dementia, T12 compression fracture, bilateral knee arthroscopies, coronary stents, colonoscopy and polyp, cataract surgery bilaterally. The patient has not been himself and has had two episodes of diarrhea at home and generalized weakness. He was found on the floor by the patient's and now with acute kidney injury with normal total CK and no signs of rhabdomyolysis. CURRENT ISSUES: 1. Acute kidney injury, baseline creatinine 1. The patient is not on any diuretics. Denies any nonsteroidal antiinflammatory drugs use. Will be given intravenous fluid. He has received two normal saline boluses. Strict input and output, daily weights. Postvoid residual checks with bladder scans. 2. Avoid NSAIDs and renally dose all medications. Keep on maintenance fluid with normal saline at 100 mL per hour. 3. Atrial fibrillation. May resume home dose of anticoagulation. On Eliquis 5 mg twice a day. We may need to change renally if needed. Continue on aspirin for history of coronary artery disease. 4. History of coronary artery disease and coronary stents. On aspirin. 5. Hypertension. On metoprolol 50 mg twice a day. 6. Benign prostatic hypertrophy (BPH). On tamsulosin. 7. Restless legs. On chronic Requip. 8. Vitamin B and D deficiency. Resume on home medications. 9. Low magnesium. The patient is resumed on his home magnesium chloride. 10. Uncontrolled diabetes. On Levemir 30 units subcutaneously twice a day with holding parameters and insulin sliding scale. Check A1/c in the morning. 11. Dementia. On Aricept and donepezil. 12. Chronic back pain. On Neurontin. Decrease to 900 mg twice a day due to renal failure. CODE STATUS: DO NOT INTUBATE, DO NOT RESUSCITATE. MTDD
[2019-05-06 19:57] LABS: CALCIUM LEVEL 8.6 MG/DL (8.8-10.2); CREATININE FOR GFR 1.52 MG/DL (0.70-1.30); GLOMERULAR FILTRATION RATE 47.8 (>42); POTASSIUM SERUM 3.7 MEQ/L (3.5-5.1)
[2019-05-06 20:00] VITALS: BP 132/63
[2019-05-06] MEDS: HumaLOG INSULIN (NovoLOG) PER UNIT SC SCH (20:56)
[2019-05-06] MEDS ORDERED: BACLOFEN 10 MG TAB PO SCH (21:00)
[2019-05-06] MEDS ORDERED: LEVEMIR (INSULIN DETEMIR) 1 UNITS/0.01ML SC SCH (21:00)
[2019-05-06] MEDS ORDERED: NON-FORMULARY 1 EA EA PO SCH (21:00)
[2019-05-06] MEDS ORDERED: ENTER DRUG NAME HERE (PATIENT'S OWN MED) INH SCH (21:00)
[2019-05-06] MEDS ORDERED: GABAPENTIN 300 MG CAP PO SCH (21:00)
[2019-05-06] MEDS: METOPROLOL TART 50 MG TAB PO SCH (21:01)
[2019-05-06] MEDS: rOPINIRole 0.25 MG TAB(REQUIP) PO SCH (21:02)
[2019-05-06] MEDS: APIXABAN 5 MG TAB (ELIQUIS) PO SCH (21:02)
[2019-05-06] MEDS: MAGNESIUM CHLORIDE 64 MG TABCR (SLO MAG) PO SCH (21:03)
[2019-05-06] MEDS: MEMANTINE 5MG TABLET (NAMENDA) PO SCH (21:41)
[2019-05-06 22:00] VITALS: BP 109/55
[2019-05-06 23:00] VITALS: BP 109/55
[2019-05-07] VITALS (17 sets, daily range): BP systolic 95–146; BP diastolic 52–69
[2019-05-07] MEDS ORDERED: D5W/0.9% SODIUM CHLORIDE 1,000 ML IV SCH (01:45)
[2019-05-07 01:59] LABS: ABG BASE EXCESS 3.4 (-2.0-2.0); ABG HCO3 34.6 MEQ/L (22.0-26.0); ABG O2 SATURATION 85.6 % (95.0-99.0); ABG STANDARD HCO3 27.2 MEQ/L (22.0-26.0); ABG TOTAL CO2 37.4 MEQ/L (23.0-31.0)
[2019-05-07] MEDS ORDERED: LevoFLOXacin IV 500 MG in IV 1 EA IV SCH (02:00)
[2019-05-07 02:02] LABS: ABG PARTIAL PRESSURE CO2 88.6 mmHg (35.0-45.0)
[2019-05-07] MEDS ORDERED: methylPREDNISolone INJ 125 MG/2 ML VIAL (J2930) IV STA (02:23)
[2019-05-07] MEDS ORDERED: LEVALBUTEROL HFA 45MCG/ACT 15 GM INHALER INH PRN (02:30)
[2019-05-07 05:34] LABS: HEMATOCRIT 46.5 % (42.0-52.0); HEMOGLOBIN 14.5 g/dl (13.5-17.5); MEAN CORPUSCULAR HEMOGLOBIN 27.5 pg (27.0-33.0); MEAN CORPUSCULAR HGB CONC 31.2 g/dl (32.0-36.5); MEAN CORPUSCULAR VOLUME 88.2 fl (80.0-96.0); PLATELET COUNT, AUTOMATED 299 10^3/uL (150-450); RED BLOOD COUNT 5.27 10^6/uL (4.30-6.10); WHITE BLOOD COUNT 8.1 10^3/uL (4.0-10.0)
[2019-05-07 06:04] LABS: BLOOD UREA NITROGEN 27 MG/DL (7-18); CALCIUM LEVEL 8.5 MG/DL (8.8-10.2); CARBON DIOXIDE LEVEL 29 MEQ/L (21-32); CHLORIDE LEVEL 103 MEQ/L (98-107); CREATININE FOR GFR 1.15 MG/DL (0.70-1.30); GLOMERULAR FILTRATION RATE > 60.0 (>42); GLUCOSE, FASTING 120 MG/DL (70-100); POTASSIUM SERUM 4.2 MEQ/L (3.5-5.1); SODIUM LEVEL 141 MEQ/L (136-145)
[2019-05-07 06:15] LABS: ABG BASE EXCESS -0.5 (-2.0-2.0); ABG HCO3 29.3 MEQ/L (22.0-26.0); ABG O2 SATURATION 98.8 % (95.0-99.0); ABG PARTIAL PRESSURE O2 141.6 mmHg (75.0-100.0); ABG STANDARD HCO3 24.1 MEQ/L (22.0-26.0); ABG TOTAL CO2 31.5 MEQ/L (23.0-31.0)
[2019-05-07 06:21] LABS: ABG PARTIAL PRESSURE CO2 72.7 mmHg (35.0-45.0); ABG pH (ARTERIAL) 7.223 UNITS (7.350-7.450)
--- NOTE | 2019-05-07 06:46 | REP ---
Urinary tract sonography: History: Acute on chronic kidney disease. Comparison CT study May 13, 2015. Comparison sonography July 11, 2017. Sonographic findings: Scanning at the level of the urinary bladder shows no significant finding. There is a 1.3 cm cyst of the lower pole left kidney which is unchanged from the CT study. Renal cortical echogenicity pattern is normal and contours are smooth bilaterally. There is no evidence of hydronephrosis on either side. Left renal dimensions are 11.3 x 5.2 x 6.2 cm. The right kidney measures 12.8 x 6.0 x 5.7 cm. Impression: 1.3 cm cyst lower pole left kidney. Otherwise unremarkable urinary tract sonography. Electronically Signed by Mario Mckeon MD 05/07/2019 08:35 A
[2019-05-07] MEDS: HumaLOG INSULIN (NovoLOG) PER UNIT SC SCH ×5 (07:30→20:42)
[2019-05-07] MEDS ORDERED: LEVALBUTEROL 1.25 MG/0.5 ML CONCENTRATE NEB INH PRN (07:30)
[2019-05-07] MEDS: LEVALBUTEROL 1.25 MG/0.5 ML CONCENTRATE NEB INH SCH ×4 (07:57→20:00)
[2019-05-07] MEDS ORDERED: IPRATROPIUM 0.5MG/ALBUTEROL 2.5MG INH SOL UD 3ML (DUONEB)(J7620) NEB SCH (08:00)
[2019-05-07] MEDS ORDERED: DONE5TAB82 PO (08:31)
[2019-05-07] MEDS ORDERED: ROSU40TA4 PO (08:31)
[2019-05-07] MEDS ORDERED: METF-791 PO (08:31)
--- NOTE | 2019-05-07 08:46 | IPN ---
DATE: 05/07/2019 Patient developed increasing respiratory distress yesterday on intravenous fluids. Chest x-ray on admission had no pulmonary edema or acute infiltrate. Patient has coarse pulmonary fibrosis and volume changes on the right side. He was given intravenous fluids. A total of 2.550 liters with improvement in creatinine from admission creatinine of 1.8, current creatinine 1.15. Patient is severely demented. Not oriented to time and place. Admits to his name, able to say Oj Felder but has been increasingly hypoxic s78-84% on room air requiring supplemental oxygen and patient required Vapotherm overnight due to worsening distress. Patient's arterial blood gas was 7.1/7.2, CO2 88.6, which improved slightly to 7.22 and CO2 of 72 after Solu-Medrol nebulizers were given. Patient does have a history of chronic obstructive pulmonary disease (COPD) but does not say whether he is having shortness of breath, chest pain, pressure, or tightness this morning. He does have bilateral wheezing. is to decide, whether she would given consent for BiPAP therapy. Vitals: Temperature 97.6, pulse 77, respiratory rate 18, blood pressure 108/56, 96% on 40% FiO2. Vapotherm at 30 liters flow rate. Generally, patient is in moderate distress with mild wheezing. He is not using respiratory accessory muscles. He is able to state his name but his disoriented to time and place. At this time patient is only oriented to his name. He does not answer questions appropriately but he is awake and purposeful movement. Generally, patient appears older than he stated age. He is edentulous in the upper teeth. No jugular venous distention (JVD). No thyromegaly. Lungs are diminished with prolonged expiration and bilateral expiratory wheezing. Heart: S1, S2, sinus rhythm. Abdomen: Soft, nontender. Nondistended. Extremities have no pitting edema. LABORATORY DATA: Arterial blood gas: 7.22, CO2 72, bicarbonate 29. White count 8.1, hemoglobin 14, hematocrit 46, platelet count 299. Sodium 141, potassium 4.2, chloride 103, bicarbonate 29, BUN 27, creatinine 1.15, glucose 120, calcium 8.5. Glucose 91, previously glucose at midnight was 58. IMAGING STUDIES: Renal ultrasound 05/06/2019: 1.3 cm cyst lower pole left kidney, otherwise, unremarkable urinary tract sonography. Chest x-ray 05/06/2019: No acute infiltrate. Bibasilar coarse pulmonary parenchymal fibrosis. Bullous changes on the right. ASSESSMENT/PLAN: This is a 73-year-old male who lives at home with his , DO NOT RESUSCITATE, DO NOT INTUBATE, medical orders for life-sustaining treatment (MOLST) form has been signed by his , Alejandrina. Consented via telephone [phone]. Admitted due to acute kidney injury. Patient was found to be hypoxic due to chronic obstructive pulmonary disease (COPD) . CURRENT ISSUES: 1. Chronic obstructive pulmonary disease (COPD) Exacerbation: Currently on Solu-Medrol, nebulizer treatment, supplemental oxygen and Levaquin intravenously due to respiratory acidosis. Patient will need discussion about BiPAP therapy and consent will be obtained from the . Pulmonary to be consulted for management. 2. Acute kidney injury resolved due to diarrhea, which has resolved overnight with IV fluids. Due to respiratory distress, IV fluids have been discontinued. Chest x-ray is obtained this morning. Check BNP levels and echocardiogram. 3. History of coronary artery disease (CAD): No prior history of myocardial infarction ([place]). Continued on his home dose of metoprolol and aspirin. 4. Vitamin D deficiency on supplemental vitamin D. 5. Dementia: On Memantine and donepezil. May need a sitter due to acute encephalopathy secondary to respiratory acidosis and chronic obstructive pulmonary disease (COPD) exacerbation with acute kidney injury. 6. Benign prostatic hypertrophy (BPH): On chronic Flomax. 7. Restless leg: On ropinirole. 8. Chronic back pain due to altered mental status and worsening respiratory distress. Patient's gabapentin has been decreased and currently discontinued. CODE STATUS: DO NOT RESUSCITATE, DO NOT INTUBATE ADDENDUM: 05/07/2019 at 7:28 a.m. Code status has been DO NOT RESUSCITATE, DO NOT INTUBATE according to patient's wishes and the signing a medical orders for life-sustaining treatment (MOLST) form yesterday. However, patient has had a turn for the worse with now a new acute respiratory acidosis. I have been unable to reach the , Alejandrina Felder at [phone] and their son Sky at [phone] to obtain consent for BiPAP therapy to reverse acute respiratory acidosis due to chronic obstructive pulmonary disease (COPD) exacerbation. Edited tanisha 05/07/2019 at 2245 MTDD
[2019-05-07] MEDS ORDERED: SODIUM CHLORIDE 0.9% 1000ML IV ONE (09:00)
[2019-05-07] MEDS: METOPROLOL TART 50 MG TAB PO SCH ×2 (09:00→21:00)
[2019-05-07] MEDS ORDERED: INCRUSE ELLIPTA (PATIENT'S OWN MED) INH SCH (09:00)
[2019-05-07] MEDS ORDERED: ADVAIR HFA 230/21MCG INHALER INH SCH (09:00)
[2019-05-07] MEDS ORDERED: NON-FORMULARY 1 EA EA INH SCH (09:00)
[2019-05-07] MEDS ORDERED: methylPREDNISolone INJ 125 MG/2 ML VIAL (J2930) IV SCH (09:00)
--- NOTE | 2019-05-07 09:25 | REP ---
Portable chest x-ray: Single view. History: Shortness of breath. Hypoxia. Comparison study: May 06, 2019. Findings: EKG monitoring electrodes overlie the chest. Heart size is normal and unchanged. The aorta somewhat tortuous. There are scattered areas of bibasilar fibrosis. No acute infiltrate is seen. Emphysematous and bullous changes are noted on the right as before. Impression: Bibasilar fibrotic changes. Emphysema and bullous changes in the right upper lung zone. No acute infiltrate seen. Electronically Signed by Mario Mckeon MD 05/07/2019 09:17 A
[2019-05-07 09:39] LABS: NT-PRO BNP 680 PG/ML (<450)
[2019-05-07] MEDS: PANTOPRAZOLE 40MG INJ (PROTONIX) (C9113) IV SCH (09:40)
[2019-05-07] MEDS: MAGNESIUM CHLORIDE 64 MG TABCR (SLO MAG) PO SCH ×2 (09:40→20:40)
[2019-05-07] MEDS: methylPREDNISolone INJ 125 MG/2 ML VIAL (J2930) IV SCH ×3 (09:41→20:42)
[2019-05-07] MEDS: VITAMIN D 1,000 INTERNATIONAL UNITS TABLET PO SCH (09:44)
[2019-05-07] MEDS: MULTIVITAMINS/MINERALS THERAP 1 TAB PO SCH (09:45)
[2019-05-07] MEDS: ASPIRIN 325 MG TAB PO SCH (09:45)
[2019-05-07] MEDS: TAMSULOSIN 0.4 MG CAP PO SCH (09:46)
[2019-05-07] MEDS: DONEPEZIL 5 MG TAB PO SCH (09:46)
[2019-05-07] MEDS: APIXABAN 5 MG TAB (ELIQUIS) PO SCH ×2 (09:46→20:41)
[2019-05-07] MEDS: PYRIDOXINE 50 MG TAB PO SCH (09:46)
[2019-05-07] MEDS: MEMANTINE 5MG TABLET (NAMENDA) PO SCH ×2 (09:46→20:41)
[2019-05-07] MEDS: FINASTERIDE 5 MG TAB PO SCH (09:46)
[2019-05-07] MEDS ORDERED: FLUBLOK(EGG FREE)(QUAD)INFLUENZA VACC 0.5ML SYRINGE (90682)18YRS&OLDER IM SCH (10:15)
[2019-05-07 11:42] LABS: ABG BASE EXCESS -4.7 (-2.0-2.0); ABG HCO3 22.7 MEQ/L (22.0-26.0); ABG O2 SATURATION 93.9 % (95.0-99.0); ABG PARTIAL PRESSURE CO2 51.1 mmHg (35.0-45.0); ABG PARTIAL PRESSURE O2 66.8 mmHg (75.0-100.0); ABG STANDARD HCO3 20.6 MEQ/L (22.0-26.0); ABG TOTAL CO2 24.3 MEQ/L (23.0-31.0); ABG pH (ARTERIAL) 7.266 UNITS (7.350-7.450)
--- NOTE | 2019-05-07 11:56 | CR ---
DATE OF CONSULTATION: 05/07/2019 REASON FOR CONSULTATION: Hypercarbic respiratory failure. CONSULTING PHYSICIAN: Dr. Yesenia Bryan ATTENDING PHYSICIAN: Dr. Neno Peraza HISTORY OF PRESENT ILLNESS: Mr. Felder is a 73-year-old male, who had originally presented to [facility] yesterday after being brought in by [facility] ([facility] The patient has a history of dementia and was found to be more confused. He was found by his on the floor of his bathroom. According to the , the patient had soiled himself for the past 2 days before coming to the hospital. Additionally, the patient's had stated that the patient had voiced that he has been thirsty and has been drinking large amounts of Crystal Light. Once admitted to the hospital, the patient was afebrile. He was slightly tachycardic with pulse oximetry 86% on room air. The patient also presented with acute kidney injury and hyperglycemia. The patient had received intravenous (IV) fluid resuscitation, with decrease in respiratory status the patient was placed on Vapotherm overnight and transferred to the intensive care unit (ICU). The patient had an arterial blood gas drawn this morning, which demonstrated that he had a pH of 7.21, pCO2 of 88.6, a pO2 of 53 and a bicarbonate of 34.6. The patient was continued on Vapotherm and pulmonary medicine was consulted for further recommendation and management. Today, the patient was seen at bedside. He continues to be confused but he states only his name. He is aware he is in the hospital however, does not know the year or the time that he is in. The patient currently states that he does not have any difficulty breathing. He denies any abdominal pain. He otherwise denies any symptoms. The patient does have a cough during examination. However, he states that it does not bother him. The patient is currently denying any diarrhea. PAST MEDICAL HISTORY: 1. Obstructive sleep apnea with intermittent continuous positive airway pressure (CPAP) use. 2. History of chronic obstructive pulmonary disease (COPD). He follows with Dr. Gilbert of [facility]. 3. Chronic kidney disease, stage III. 4. Type 2 diabetes mellitus. 5. Hypertensive heart disease. 6. Hyperlipidemia. 7. Coronary artery disease with stent placements. 8. Degenerative disc disease. PAST SURGICAL HISTORY: 1. Palate replacement of upper. 2. Bilateral knee arthroscopies. 3. Coronary artery stent placements. 4. Colonoscopy with polyp removal. 5. Bilateral cataract surgeries. SOCIAL HISTORY: The patient currently lives with his . He is a previous smoker, smoking approximately 1 pack per day since the age of 13. He quit smoking in 2009. The patient, per the , completes his daily activities of living. FAMILY HISTORY: The patient's father and mother both have . His father at the age of 62 from coronary artery disease and myocardial infarction. His mother at the age of 62 as well from stroke. The patient has one sons and a daughter. REVIEW OF SYSTEMS: CONSTITUTIONAL: The patient denies any fevers, chills, nausea or vomiting. He denies any night sweats or intentional weight loss unexplained. HEENT: The patient admits to a cough. He denies any change in vision. He denies any change in his hearing. He denies any migraines. CARDIOVASCULAR: The patient denies any chest pain or palpitations. He denies any feelings of the heart racing. RESPIRATORY: The patient currently denies any shortness of breath. He does admit to a cough. He denies any sputum production. He denies any wheezing. GASTROINTESTINAL: The patient denies any abdominal pain. He denies any nausea or vomiting. He admits to some diarrhea, which is confirmed by his . GENITOURINARY: The patient denies any dysuria or increased frequency. His says that he sometimes has retention. INTEGUMENTARY: The patient denies any pustular lesions. NEUROLOGIC: The patient denies any change in his gait. The patient's admits to some issues with memory. PSYCHIATRIC: The patient denies any history of anxiety or depression. PHYSICAL EXAMINATION: VITAL SIGNS: Temperature 97.6, pulse 80, respiratory rate 18, blood pressure 121/60, pulse oximetry 98% on Vapotherm with an FiO2 of 40%. GENERAL: The patient is awake. He is alert. He is only oriented to person. He is pleasant and converses. He does not appear in acute distress. He is sitting comfortably up in bed with high flow nasal cannula in place. HEENT: The patient's head is atraumatic, normocephalic. Eyes are nonicteric. Trachea is midline. There is no palpable cervical, supraclavicular or axillary lymphadenopathy. His oral mucosa is pink and moist. He has missing teeth. CARDIOVASCULAR: There is normal S1, S2. Regular rate and rhythm. There are no clicks, rubs or murmurs auscultated. RESPIRATORY: The patient has clear vesicular breath sounds with some mild fine crackles at the bases bilaterally. There is no wheezing. No rhonchi. There is symmetric chest expansion. There is no accessory muscle use. GASTROINTESTINAL: The patient's abdomen is soft. It is nondistended. There is no tenderness. There are normoactive bowel sounds throughout. There are no hernias. GENITOURINARY: There is no suprapubic tenderness. The patient's Davis bag has approximately 20 mL. EXTREMITIES: The patient's extremities are void of edema. There is 2+ posterior tibial and radial pulses bilaterally. There is no clubbing or cyanosis of the fingernails or nailbeds. NEUROLOGIC: There are focal neurologic deficits. The patient demonstrates confusion. PSYCHIATRIC: The patient's mood and affect are appropriate for situation. LABORATORY DATA: HEMATOLOGY: White blood cells 8.1, hemoglobin 14.5, hematocrit 46.5, platelet count 299. CHEMISTRIES: Sodium 141, potassium 4.2, chloride 103, carbon dioxide 29, BUN 27, creatinine 1.15, fasting glucose 120. Calcium 8.5. ARTERIAL BLOOD GAS: ph 7.22, pCO2 72.7, pO2 141.6, bicarbonate 29.3. IMAGING: Chest x-ray from April 2019 demonstrating bibasilar fibrotic changes, emphysema and bullous changes in the right upper lobe zone with no acute infiltrate. MICROBIOLOGY: Blood cultures times two negative. Sputum culture and gram stain pending. INPATIENT MEDICATIONS: - aspirin 81 mg daily by mouth - vitamin D 2000 units daily by mouth - vitamin B6 100 mg by mouth - finasteride 5 mg by mouth - multivitamins 1 tablet by mouth - Flomax 0.4 mg by mouth - Protonix 40 mg daily intravenously - Solu-Medrol 60 mg every 6 hours intravenously - Xopenex 1.25 mg required every 4 hours - insulin Humalog before food and nightly - Eliquis 5 mg twice a day - magnesium chloride 64 mg twice a day - Namenda 10 mg twice a day - Lopressor 50 mg twice a day - Requip 0.5 mg nightly - Advair Diskus twice a day inhaled - Aricept 10 mg daily ASSESSMENT AND PLAN: The patient is a 73-year-old male, who originally presented with confusion and found to have acute kidney injury. He has a history of hypertension and coronary artery disease. He had some shortness of breath yesterday and was found to have a pulse oximetry 86% on room air. The patient was placed on nasal cannula and transitioned to Vapotherm with a FiO2 of 40%. He currently does not complain of any shortness of breath. His blood gas demonstrated respiratory acidosis with pO2 of 141.6. The patient had a repeat chest x-ray, which is nonrevealing. The patient has been placed on Levaquin by the primary team for suspected COPD exacerbation and possible pneumonia. 1. Hypercarbic respiratory failure. He has been placed on Vapotherm. However, the patient's oxygenation is currently 141. The Vapotherm has been discontinued. The patient is currently on room air with oxygen saturations of 94%. We will continue on room air. We will repeat arterial blood gas at 11:30 today to assess for resolution of his respiratory acidosis. 2. Bronchiectasis. The patient has a history of bronchiectasis. He has radiographic findings of bronchiectasis as well. The patient is also on some anticholinergics including increased Ellipta and trospium which are anticholinergics. These have been discontinued. The patient will be given pulmonary toilet as well as chest physiotherapy (PT) with his nebulizers, including an Acapella to be used with his nebulizers as well. Positive expiratory pressure (PEP) therapy as well. The patient was previously on levofloxacin. He has demonstrated some confusion, which is likely secondary to being on both anticholinergic and levofloxacin. The patient does not have a fever. He has a chest x-ray, which did not demonstrate a pneumatic process. We will discontinue levofloxacin at this point in time in a trial period. The patient is currently on methylprednisone. His high flow oxygen has been stopped. We will followup with a repeat arterial blood gas (ABG). At which point, methylprednisone can be likely be decreased if his arterial blood gas demonstrates resolution of his hypercarbia. 3. Hypotension/acute kidney injury. The patient presented with acute kidney injury. He is normally hypertensive. His blood pressure today was 117/60. The patient's urine output only made approximately 20 mL since 4 a.m. We will bolus him with 500 mL of normal saline reassess urine output today. The patient currently has fluids running at 50 mL as well. ADDENDUM BY DR. PERAZA: I agree with the history and physical as outlined by Dr. Negro. This gentleman is a 73-year-old male with known dementia with worsening delirium being treated for possible pneumonia or chronic obstructive pulmonary disease (COPD) exacerbation. He has chronic bronchiectasis, difficulty with mucociliary clearance. Is on anticholinergic therapy, along with Levaquin and steroids, which I believe are contributing to his delirium. Therefore, would change his antibiotic regimen, discontinuing his anticholinergics, and pursue mucociliary clearance. He does have hypercarbic respiratory failure. However, his pAO2 is quite elevated. At bedside, he is awake, conversant, without asterixis. I have, therefore, decreased his oxygen to 2 liters via nasal cannula. Even at that, he is at 95% at rest. He does appear to be slightly dry. I have, therefore, ordered a 500 mL bolus, as his urine output has been well. After my own personal physical examination, the case was discussed with the resident. I agree with what is outlined above. [facility]
[2019-05-07] MEDS: NS 1,000 ML IV SCH (13:30)
[2019-05-07] MEDS: ADVAIR HFA 230/21MCG INHALER INH SCH (20:07)
[2019-05-07] MEDS: ROSUVASTATIN 10 MG TAB (CRESTOR) PO SCH (20:41)
[2019-05-07] MEDS: rOPINIRole 0.25 MG TAB(REQUIP) PO SCH (20:41)
[2019-05-07] MEDS ORDERED: LEVEMIR (INSULIN DETEMIR) 1 UNITS/0.01ML SC SCH (21:00)
[2019-05-08] MEDS: LEVALBUTEROL 1.25 MG/0.5 ML CONCENTRATE NEB INH SCH ×7 (00:11→23:53)
[2019-05-08] MEDS: methylPREDNISolone INJ 125 MG/2 ML VIAL (J2930) IV SCH ×2 (02:24→09:57)
[2019-05-08] MEDS: NS 1,000 ML IV SCH (02:25)
[2019-05-08 05:03] VITALS: BP 112/55
[2019-05-08 05:27] LABS: HEMATOCRIT 41.4 % (42.0-52.0); HEMOGLOBIN 13.3 g/dl (13.5-17.5); MEAN CORPUSCULAR HEMOGLOBIN 27.8 pg (27.0-33.0); MEAN CORPUSCULAR HGB CONC 32.1 g/dl (32.0-36.5); MEAN CORPUSCULAR VOLUME 86.4 fl (80.0-96.0); PLATELET COUNT, AUTOMATED 287 10^3/uL (150-450); RED BLOOD COUNT 4.79 10^6/uL (4.30-6.10); WHITE BLOOD COUNT 5.2 10^3/uL (4.0-10.0)
[2019-05-08 05:52] LABS: BLOOD UREA NITROGEN 26 MG/DL (7-18); CALCIUM LEVEL 8.3 MG/DL (8.8-10.2); CARBON DIOXIDE LEVEL 27 MEQ/L (21-32); CHLORIDE LEVEL 100 MEQ/L (98-107); GLOMERULAR FILTRATION RATE > 60.0 (>42); GLUCOSE, FASTING 416 MG/DL (70-100); SODIUM LEVEL 135 MEQ/L (136-145)
[2019-05-08 08:00] VITALS: BP 110/78
[2019-05-08 08:18] LABS: ABG BASE EXCESS 1.3 (-2.0-2.0); ABG HCO3 25.9 MEQ/L (22.0-26.0); ABG O2 SATURATION 89.4 % (95.0-99.0); ABG PARTIAL PRESSURE O2 50.9 mmHg (75.0-100.0); ABG STANDARD HCO3 25.4 MEQ/L (22.0-26.0); ABG TOTAL CO2 27.1 MEQ/L (23.0-31.0); ABG pH (ARTERIAL) 7.418 UNITS (7.350-7.450)
[2019-05-08] MEDS: LEVEMIR (INSULIN DETEMIR) 1 UNITS/0.01ML SC SCH ×2 (09:15→21:15)
[2019-05-08] MEDS: HumaLOG INSULIN (NovoLOG) PER UNIT SC SCH ×4 (09:16→21:15)
--- NOTE | 2019-05-08 09:32 | CCN ---
DATE OF SERVICE: 05/08/2019 PULMONARY NOTE: Mr. Felder is seen in the intensive care unit (ICU). However, his status has changed to a medical-surgical patient and he is awaiting transfer. The patient reports no significant issues. He states he is feeling better. Reports his breathing has improved. He has remained afebrile, and his white count has remained within normal limits in spite of being taken off antibiotics yesterday. Pulmonary team was asked to see the patient for his bronchiectasis, and we had advised pulmonary toilets and Acapella use. PHYSICAL EXAMINATION Vital signs: Temperature 97.5, pulse 60, respiratory rate 18, blood pressure is 112/55, pulse oximetry 95% on room air. General: The patient is alert. He is still somewhat confused but he was able to know that he was in the hospital. He does not recall if he sees a carpenter supervisor in the office. He is aware of the year and the month. He does speak in complete sentences. HEENT: Head is normocephalic, atraumatic. Eyes are equal and reactive. Nonicteric. Moist mucous membranes. Tongue is midline. Poor dentition. Neck: Neck is supple. No cervical lymphadenopathy. No jugular venous distention (JVD). Trachea is midline. Cardiovascular: Regular rate and rhythm. S1, S2. No murmurs. Pulmonary: Clear to auscultation bilaterally. No wheezing, rales or rhonchi. No accessory muscle use. Gastrointestinal: Abdomen is soft and nontender. Positive bowel sounds. No rebound or guarding. Extremities: No clubbing, cyanosis or edema. Skin: Skin is warm and dry. LABS: ABG pH 7.418, pCO2 41.0, pO2 50.9. WBC 5.2, hemoglobin 13.3, hematocrit 41.4, platelets 287. Sodium 135, potassium 5.0, chloride 100, carbon dioxide 27, BUN 26, creatinine 1.10, glucose 416, calcium 8.3. ASSESSMENT AND PLAN: Bronchiectasis. The patient has a history of bronchiectasis. Continue pulmonary toilet. Continue Acapella. Continue mucociliary clearance. He is off the antibiotics and has remained afebrile with a normal white count. The patient is on IV Solu-Medrol. Recommend changing him to a prednisone taper. The patient's anticholinergics have been discontinued. Recommend outpatient pulmonary followup appointment in 2 weeks after discharge. At this point, pulmonary will sign off but will remain available if needed.
[2019-05-08] MEDS: ADVAIR HFA 230/21MCG INHALER INH SCH ×2 (09:45→21:00)
[2019-05-08] MEDS: MAGNESIUM CHLORIDE 64 MG TABCR (SLO MAG) PO SCH ×2 (09:56→21:15)
[2019-05-08] MEDS: ASPIRIN 325 MG TAB PO SCH (09:57)
[2019-05-08] MEDS: MULTIVITAMINS/MINERALS THERAP 1 TAB PO SCH (09:57)
[2019-05-08] MEDS: PANTOPRAZOLE 40MG INJ (PROTONIX) (C9113) IV SCH (09:57)
[2019-05-08] MEDS: FINASTERIDE 5 MG TAB PO SCH (09:57)
[2019-05-08] MEDS: PYRIDOXINE 50 MG TAB PO SCH (09:58)
[2019-05-08] MEDS: APIXABAN 5 MG TAB (ELIQUIS) PO SCH ×2 (09:58→21:14)
[2019-05-08] MEDS: METOPROLOL TART 50 MG TAB PO SCH ×2 (09:58→21:00)
[2019-05-08] MEDS: MEMANTINE 5MG TABLET (NAMENDA) PO SCH ×2 (09:59→21:14)
[2019-05-08] MEDS: VITAMIN D 1,000 INTERNATIONAL UNITS TABLET PO SCH (11:45)
[2019-05-08] MEDS: TAMSULOSIN 0.4 MG CAP PO SCH (11:45)
[2019-05-08 12:00] VITALS: BP 118/57
--- NOTE | 2019-05-08 13:58 | IPNPDOC ---
Text Note Date of Service The patient was seen on 05/08/19. NOTE SUBJECTIVE: Awake, alert, pleasant but confused. On prompting knew he was in the hospital did not know the name. knew his address. Complains of some discomfort in the perineum. Say she is hungry, asked for his . PHYSICAL EXAM: Vitals: As below. GENERAL: Awake and alert, cooperative , laying down in bed in no distress, smiling, oriented to name and knows he is in hospital. HEET: normocephalic, atraumatic, moist mucous membranes, an icteric eyes. Neck: No jugular venous distention (JVD). No thyromegaly. Lungs are diminished overall with few crackles scattered, no wheezing or ronchi. No use of accessary muscles. CVS: s1, s2 regular , normal rate, no rub murmur or gallop ABDOMEN: Soft nontender, bowel sounds normal, no organomegaly appreciated. Extremities: No edema. No clubbing or cyanosis Skin: warm and dry , with dermatitis of the legs. ASSESSMENT/PLAN: This is a 73-year-old male who lives at home with his , DO NOT RESUSCITATE, DO NOT INTUBATE with PMH of dementia ,Obstructive sleep apnea, COPD, Chronic kidney disease stage III, Type 2 diabetes, Hypertensive heart disease, Hyperlipidemia, Coronary artery disease s/p stent, Degenerative disc disease fell at home . Found by sitting on the floor confused and very weak and brought to the ED. He was admitted due to acute kidney injury and hypoxia due to chronic obstructive pulmonary disease (COPD) exacerbation. Acute respiratory failure with Hypercarbia and hypoxia needed vapotherm but now in room air pulmonary has been consulted as per their recommendations. ABG normal this am. Bronchiectasis frequent pulmonary toileting, discontinued anticholinergics on xopenix nebs and advair. Chronic obstructive pulmonary disease (COPD) Exacerbation: Currently on Solu-Medrol, nebulizer treatment, supplemental oxygen xopenex and advair. will start steroid taper. Dementia with acute delirium due to levaquin, acute respiratory failure. dced lavaquin, rep failure improved Now seems more at baseline will have ot confirm with . On Memantine and donepezil. Diabetes uncontrolled due to steroids increased levamir , continue lispro Ac and HS. Acute kidney injury due to diarrhea resolved with IVF.Continue gentel hydration. Echo ordered. History of coronary artery disease (CAD): Continued on his home dose of metoprolol and aspirin. Vitamin D deficiency on supplemental vitamin D. Benign prostatic hypertrophy (BPH): On chronic Flomax and finasteride Restless leg: On ropinirole. Chronic back pain due to altered mental status and worsening respiratory distress. Patient's gabapentin was discontinued. CODE STATUS: DO NOT RESUSCITATE, DO NOT INTUBATE VS,Fishbone, I+O VS, Fishbone, I+O Laboratory Tests 05/08/19 05:01 Vital Signs Date Time Temp Pulse Resp B/P (MAP) Pulse Ox O2 Delivery O2 Flow Rate FiO2 05/08/19 05:03 97.5 60 18 112/55 (74) 95 Room Air 05/07/19 12:00 1.0 05/07/19 08:00 40 I&O- Last 24 Hours up to 6 AM 05/08/19 06:00 Intake Total 2115 ml Output Total 2065 ml Balance 50 ml MARIELLA FELICIANO MD May 08, 2019 07:00
[2019-05-08 14:30] VITALS: BP 118/58
[2019-05-08] MEDS: methylPREDNISolone INJ 40 MG/1 ML VIAL (J2920) IV SCH (17:39)
[2019-05-08] MEDS: ROSUVASTATIN 10 MG TAB (CRESTOR) PO SCH (21:14)
[2019-05-08] MEDS: DONEPEZIL 5 MG TAB PO SCH (21:14)
[2019-05-08] MEDS: rOPINIRole 0.25 MG TAB(REQUIP) PO SCH (21:14)
[2019-05-08 22:00] VITALS: BP 122/63
[2019-05-09] MEDS: methylPREDNISolone INJ 40 MG/1 ML VIAL (J2920) IV SCH ×3 (01:49→21:06)
[2019-05-09] MEDS: LEVALBUTEROL 1.25 MG/0.5 ML CONCENTRATE NEB INH SCH ×5 (04:00→19:29)
[2019-05-09 06:00] VITALS: BP 121/63
[2019-05-09 06:27] LABS: HEMATOCRIT 40.9 % (42.0-52.0); HEMOGLOBIN 13.4 g/dl (13.5-17.5); MEAN CORPUSCULAR HEMOGLOBIN 27.6 pg (27.0-33.0); MEAN CORPUSCULAR HGB CONC 32.8 g/dl (32.0-36.5); MEAN CORPUSCULAR VOLUME 84.3 fl (80.0-96.0); PLATELET COUNT, AUTOMATED 339 10^3/uL (150-450); RED BLOOD COUNT 4.85 10^6/uL (4.30-6.10); WHITE BLOOD COUNT 9.2 10^3/uL (4.0-10.0)
[2019-05-09 06:48] LABS: BLOOD UREA NITROGEN 28 MG/DL (7-18); CALCIUM LEVEL 8.8 MG/DL (8.8-10.2); CARBON DIOXIDE LEVEL 25 MEQ/L (21-32); CHLORIDE LEVEL 97 MEQ/L (98-107); CREATININE FOR GFR 1.24 MG/DL (0.70-1.30); GLOMERULAR FILTRATION RATE > 60.0 (>42); GLUCOSE, FASTING 363 MG/DL (70-100); POTASSIUM SERUM 4.4 MEQ/L (3.5-5.1); SODIUM LEVEL 130 MEQ/L (136-145)
[2019-05-09] MEDS: ADVAIR HFA 230/21MCG INHALER INH SCH ×2 (09:01→19:30)
[2019-05-09] MEDS: APIXABAN 5 MG TAB (ELIQUIS) PO SCH ×2 (09:06→21:06)
[2019-05-09] MEDS: VITAMIN D 1,000 INTERNATIONAL UNITS TABLET PO SCH (09:06)
[2019-05-09] MEDS: ASPIRIN 81 MG ENTERIC TAB PO SCH (09:07)
[2019-05-09] MEDS: FINASTERIDE 5 MG TAB PO SCH (09:07)
[2019-05-09] MEDS: MEMANTINE 5MG TABLET (NAMENDA) PO SCH ×2 (09:07→21:05)
[2019-05-09] MEDS: MAGNESIUM CHLORIDE 64 MG TABCR (SLO MAG) PO SCH ×2 (09:07→21:05)
[2019-05-09] MEDS: TAMSULOSIN 0.4 MG CAP PO SCH (09:07)
[2019-05-09] MEDS: PYRIDOXINE 50 MG TAB PO SCH (09:07)
[2019-05-09] MEDS: MULTIVITAMINS/MINERALS THERAP 1 TAB PO SCH (09:07)
[2019-05-09] MEDS: METOPROLOL TART 50 MG TAB PO SCH ×2 (09:07→20:57)
[2019-05-09] MEDS: HumaLOG INSULIN (NovoLOG) PER UNIT SC SCH ×4 (09:08→20:57)
[2019-05-09] MEDS: PANTOPRAZOLE 40MG INJ (PROTONIX) (C9113) IV SCH (09:08)
[2019-05-09] MEDS: LEVEMIR (INSULIN DETEMIR) 1 UNITS/0.01ML SC SCH ×2 (09:09→21:06)
--- NOTE | 2019-05-09 12:16 | IPNPDOC ---
Text Note Date of Service The patient was seen on 05/09/19. NOTE SUBJECTIVE: Awake, alert, pleasant but confused. worked with PT. Very poor short term memory. As per at bedside he is more disoriented than usual. Last night as per nurses he was walking the hallways trying to leave. So has a sitter now. PHYSICAL EXAM: Vitals: As below. GENERAL: Awake and alert, cooperative , laying down in bed in no distress, smiling, oriented to name and knows he is in hospital. HEET: normocephalic, atraumatic, moist mucous membranes, an icteric eyes. Neck: No jugular venous distention (JVD). No thyromegaly. Lungs are diminished overall with few crackles scattered, no wheezing or ronchi. No use of accessary muscles. CVS: s1, s2 regular , normal rate, no rub murmur or gallop ABDOMEN: Soft nontender, bowel sounds normal, no organomegaly appreciated. Extremities: No edema. No clubbing or cyanosis Skin: warm and dry , with dermatitis of the legs. GENITOURINARY: there is a paraphimosis. Prepuce is retracted with penile head swollen. ASSESSMENT/PLAN: This is a 73-year-old male who lives at home with his , DO NOT RESUSCITATE, DO NOT INTUBATE with PMH of dementia ,Obstructive sleep apnea, COPD, Chronic kidney disease stage III, Type 2 diabetes, Hypertensive heart disease, Hyperlipidemia, Coronary artery disease s/p stent, Degenerative disc disease fell at home . Found by sitting on the floor confused and very weak and brought to the ED. He was admitted due to acute kidney injury and hypoxia due to chronic obstructive pulmonary disease (COPD) exacerbation. Acute respiratory failure with Hypercarbia and hypoxia due to COPD and Bronchiectasis needed vapotherm but now in room air Now resolved. Bronchiectasis frequent pulmonary toileting, discontinued anticholinergics on xopenix nebs and advair. Chronic obstructive pulmonary disease (COPD) Exacerbation: Currently on Solu-Medrol, nebulizer treatment, supplemental oxygen xopenex and advair. will start steroid taper. Dementia with acute delirium due to levaquin, steroids, acute respiratory failure. dced lavaquin, rep failure improved started tapering steroids. Now seems close to baseline On Memantine and donepezil. Paraphimosis slightly better today. will dc oquendo ,keep elevated Diabetes uncontrolled due to steroids increased levamir , continue lispro Ac and HS. Hyponatremia due to elevated sugars. Acute kidney injury due to diarrhea resolved with IVF.Continue gentel hydration. Echo ordered. History of coronary artery disease (CAD): Continued on his home dose of metoprolol and aspirin. Vitamin D deficiency on supplemental vitamin D. Benign prostatic hypertrophy (BPH): On chronic Flomax and finasteride Restless leg: On ropinirole. Chronic back pain due to altered mental status and worsening respiratory distress. Patient's gabapentin was discontinued. CODE STATUS: DO NOT RESUSCITATE, DO NOT INTUBATE VS,Fishbone, I+O VS, Fishbone, I+O Laboratory Tests 05/09/19 05:47 Vital Signs Date Time Temp Pulse Resp B/P (MAP) Pulse Ox O2 Delivery O2 Flow Rate FiO2 05/09/19 09:07 62 121/63 05/09/19 06:00 97.9 17 93 Room Air 05/07/19 12:00 1.0 05/07/19 08:00 40 I&O- Last 24 Hours up to 6 AM 05/09/19 06:00 Intake Total 3900 ml Output Total 1350 ml Balance 2550 ml MARIELLA FELICIANO MD May 09, 2019 12:16
[2019-05-09 14:00] VITALS: BP 148/76
[2019-05-09] MEDS: ROSUVASTATIN 10 MG TAB (CRESTOR) PO SCH (21:06)
[2019-05-09] MEDS: DONEPEZIL 5 MG TAB PO SCH (21:06)
[2019-05-09] MEDS: rOPINIRole 0.25 MG TAB(REQUIP) PO SCH (21:06)
[2019-05-09 22:00] VITALS: BP 106/69
[2019-05-10] MEDS ORDERED: diphenhydrAMINE INJ 50MG/ML VIAL (J1200) IV ONE (01:00)
[2019-05-10] MEDS ORDERED: HALOPERIDOL 5 MG/ML VIAL (J1630) IV PRN (01:15)
[2019-05-10] MEDS: QUEtiapine FUMARATE 25 MG TAB PO SCH ×3 (01:44→22:11)
[2019-05-10] MEDS: LEVALBUTEROL 1.25 MG/0.5 ML CONCENTRATE NEB INH SCH ×7 (04:00→23:00)
[2019-05-10 06:00] VITALS: BP 141/82
[2019-05-10 06:31] LABS: HEMATOCRIT 40.7 % (42.0-52.0); HEMOGLOBIN 13.4 g/dl (13.5-17.5); MEAN CORPUSCULAR HEMOGLOBIN 27.7 pg (27.0-33.0); MEAN CORPUSCULAR HGB CONC 32.9 g/dl (32.0-36.5); MEAN CORPUSCULAR VOLUME 84.1 fl (80.0-96.0); PLATELET COUNT, AUTOMATED 356 10^3/uL (150-450); RED BLOOD COUNT 4.84 10^6/uL (4.30-6.10); WHITE BLOOD COUNT 7.6 10^3/uL (4.0-10.0)
[2019-05-10 06:57] LABS: BLOOD UREA NITROGEN 29 MG/DL (7-18); CALCIUM LEVEL 8.3 MG/DL (8.8-10.2); CARBON DIOXIDE LEVEL 28 MEQ/L (21-32); CHLORIDE LEVEL 97 MEQ/L (98-107); CREATININE FOR GFR 1.13 MG/DL (0.70-1.30); GLOMERULAR FILTRATION RATE > 60.0 (>42); GLUCOSE, FASTING 273 MG/DL (70-100); POTASSIUM SERUM 4.3 MEQ/L (3.5-5.1); SODIUM LEVEL 133 MEQ/L (136-145)
[2019-05-10] MEDS: ADVAIR HFA 230/21MCG INHALER INH SCH ×2 (07:58→21:00)
[2019-05-10] MEDS: MAGNESIUM CHLORIDE 64 MG TABCR (SLO MAG) PO SCH ×2 (08:29→22:08)
[2019-05-10] MEDS: LEVEMIR (INSULIN DETEMIR) 1 UNITS/0.01ML SC SCH ×2 (08:30→22:09)
[2019-05-10] MEDS: PANTOPRAZOLE 40MG INJ (PROTONIX) (C9113) IV SCH (08:30)
[2019-05-10] MEDS: methylPREDNISolone INJ 40 MG/1 ML VIAL (J2920) IV SCH (08:30)
[2019-05-10] MEDS: TAMSULOSIN 0.4 MG CAP PO SCH (08:31)
[2019-05-10] MEDS: HumaLOG INSULIN (NovoLOG) PER UNIT SC SCH ×4 (08:31→22:09)
[2019-05-10] MEDS: FINASTERIDE 5 MG TAB PO SCH (08:31)
[2019-05-10] MEDS: PYRIDOXINE 50 MG TAB PO SCH (08:31)
[2019-05-10] MEDS: VITAMIN D 1,000 INTERNATIONAL UNITS TABLET PO SCH (08:31)
[2019-05-10] MEDS: ASPIRIN 81 MG ENTERIC TAB PO SCH (08:31)
[2019-05-10] MEDS: MEMANTINE 5MG TABLET (NAMENDA) PO SCH ×2 (08:32→22:11)
[2019-05-10] MEDS: MULTIVITAMINS/MINERALS THERAP 1 TAB PO SCH (08:32)
[2019-05-10] MEDS: METOPROLOL TART 50 MG TAB PO SCH ×2 (08:41→22:11)
[2019-05-10] MEDS: APIXABAN 5 MG TAB (ELIQUIS) PO SCH ×2 (08:41→22:10)
--- NOTE | 2019-05-10 12:34 | IPNPDOC ---
Text Note Date of Service The patient was seen on 05/10/19. NOTE SUBJECTIVE: Awake, alert, pleasant but confused. worked with PT. Very poor short term memory. Last night as per nurses he was walking the hallways. Does not recall seeing me last few days. Says does not have pain in the penis only hurts on manipulating it. No problem with voiding . No fever or chills ; no cough or phlegm. PHYSICAL EXAM: Vitals: As below. GENERAL: Awake and alert, cooperative , laying down in bed in no distress, smiling, oriented to name and knows he is in hospital. HEET: normocephalic, atraumatic, moist mucous membranes, an icteric eyes. Neck: No jugular venous distention (JVD). No thyromegaly. Lungs are diminished overall with few crackles scattered, no wheezing or ronchi. No use of accessary muscles. CVS: s1, s2 regular , normal rate, no rub murmur or gallop ABDOMEN: Soft nontender, bowel sounds normal, no organomegaly appreciated. Extremities: No edema. No clubbing or cyanosis Skin: warm and dry , with dermatitis of the legs. GENITOURINARY: there is a paraphimosis. Prepuce is retracted with penile head swollen. ASSESSMENT/PLAN: This is a 73-year-old male who lives at home with his , DO NOT RESUSCITATE, DO NOT INTUBATE with PMH of dementia ,Obstructive sleep apnea, COPD, Chronic kidney disease stage III, Type 2 diabetes, Hypertensive heart disease, Hyperlipidemia, Coronary artery disease s/p stent, Degenerative disc disease fell at home . Found by sitting on the floor confused and very weak and brought to the ED. He was admitted due to acute kidney injury and hypoxia due to chronic obstructive pulmonary disease (COPD) exacerbation. Acute respiratory failure with Hypercarbia and hypoxia due to COPD and Bronchiectasis needed vapotherm. now in room air Now resolved. Bronchiectasis frequent pulmonary toileting, discontinued anticholinergics on xopenix nebs and advair. Chronic obstructive pulmonary disease (COPD) Exacerbation: Currently on Solu-Medrol, nebulizer treatment, supplemental oxygen xopenex and advair. will start steroid taper. Dementia with acute delirium due to levaquin, steroids, acute respiratory failure. dced lavaquin, rep failure improved started tapering steroids. Now seems close to baseline On Memantine and donepezil. Paraphimosis slightly better today. However unable to reduce it. Will ask urology to se voiding normally after dc of oquendo. Diabetes uncontrolled due to steroids increased levamir , continue lispro Ac and HS. Hyponatremia due to elevated sugars. Acute kidney injury due to diarrhea resolved with IVF.Continue gentel hydration. Echo ordered. History of coronary artery disease (CAD): Continued on his home dose of metoprolol and aspirin. Vitamin D deficiency on supplemental vitamin D. Benign prostatic hypertrophy (BPH): On chronic Flomax and finasteride Restless leg: On ropinirole. Chronic back pain due to altered mental status and worsening respiratory distress. Patient's gabapentin was discontinued. CODE STATUS: DO NOT RESUSCITATE, DO NOT INTUBATE Dispo: in 24 hours After PT clearance and urology eval. VS,Fishbone, I+O VS, Fishbone, I+O Laboratory Tests 05/10/19 05:44 Vital Signs Date Time Temp Pulse Resp B/P (MAP) Pulse Ox O2 Delivery O2 Flow Rate FiO2 05/10/19 08:41 70 136/83 05/10/19 06:00 16 95 05/09/19 22:00 97.4 Room Air 05/07/19 12:00 1.0 05/07/19 08:00 40 I&O- Last 24 Hours up to 6 AM 05/10/19 06:00 Intake Total 1140 ml Output Total 1425 ml Balance -285 ml MARIELLA FELICIANO MD May 10, 2019 12:34
[2019-05-10 14:00] VITALS: BP 148/76
[2019-05-10] MEDS ORDERED: PRED10TA2 PO (14:37)
[2019-05-10 22:00] VITALS: BP 131/73
[2019-05-10] MEDS: ROSUVASTATIN 10 MG TAB (CRESTOR) PO SCH (22:10)
[2019-05-10] MEDS: rOPINIRole 0.25 MG TAB(REQUIP) PO SCH (22:10)
[2019-05-10] MEDS: DONEPEZIL 5 MG TAB PO SCH (22:11)
[2019-05-11] MEDS: LEVALBUTEROL 1.25 MG/0.5 ML CONCENTRATE NEB INH SCH ×2 (03:52→08:00)
[2019-05-11 06:00] VITALS: BP 135/74
[2019-05-11 06:17] LABS: HEMATOCRIT 43.9 % (42.0-52.0); HEMOGLOBIN 14.2 g/dl (13.5-17.5); MEAN CORPUSCULAR HEMOGLOBIN 27.5 pg (27.0-33.0); MEAN CORPUSCULAR HGB CONC 32.3 g/dl (32.0-36.5); MEAN CORPUSCULAR VOLUME 84.9 fl (80.0-96.0); PLATELET COUNT, AUTOMATED 377 10^3/uL (150-450); RED BLOOD COUNT 5.17 10^6/uL (4.30-6.10); WHITE BLOOD COUNT 9.8 10^3/uL (4.0-10.0)
[2019-05-11 06:36] LABS: BLOOD UREA NITROGEN 27 MG/DL (7-18); CALCIUM LEVEL 8.4 MG/DL (8.8-10.2); CARBON DIOXIDE LEVEL 33 MEQ/L (21-32); CHLORIDE LEVEL 99 MEQ/L (98-107); CREATININE FOR GFR 1.01 MG/DL (0.70-1.30); GLOMERULAR FILTRATION RATE > 60.0 (>42); GLUCOSE, FASTING 161 MG/DL (70-100); POTASSIUM SERUM 3.8 MEQ/L (3.5-5.1); SODIUM LEVEL 137 MEQ/L (136-145)
[2019-05-11] MEDS: ADVAIR HFA 230/21MCG INHALER INH SCH (08:00)
[2019-05-11] MEDS: PANTOPRAZOLE 40MG INJ (PROTONIX) (C9113) IV SCH (08:04)
[2019-05-11] MEDS: MAGNESIUM CHLORIDE 64 MG TABCR (SLO MAG) PO SCH (08:04)
[2019-05-11] MEDS: APIXABAN 5 MG TAB (ELIQUIS) PO SCH (08:05)
[2019-05-11] MEDS: ASPIRIN 81 MG ENTERIC TAB PO SCH (08:05)
[2019-05-11] MEDS: MULTIVITAMINS/MINERALS THERAP 1 TAB PO SCH (08:05)
[2019-05-11] MEDS: QUEtiapine FUMARATE 25 MG TAB PO SCH (08:05)
[2019-05-11] MEDS: FINASTERIDE 5 MG TAB PO SCH (08:05)
[2019-05-11] MEDS: TAMSULOSIN 0.4 MG CAP PO SCH (08:05)
[2019-05-11] MEDS: PYRIDOXINE 50 MG TAB PO SCH (08:05)
[2019-05-11] MEDS: VITAMIN D 1,000 INTERNATIONAL UNITS TABLET PO SCH (08:05)
[2019-05-11] MEDS: MEMANTINE 5MG TABLET (NAMENDA) PO SCH (08:05)
[2019-05-11 08:08] VITALS: BP 133/73
[2019-05-11] MEDS: LEVEMIR (INSULIN DETEMIR) 1 UNITS/0.01ML SC SCH (08:08)
[2019-05-11] MEDS: HumaLOG INSULIN (NovoLOG) PER UNIT SC SCH (08:08)
[2019-05-11] MEDS: METOPROLOL TART 50 MG TAB PO SCH (08:08)
[2019-05-11] MEDS ORDERED: predniSONE 20 MG TAB PO SCH (09:00)
[2019-05-11] MEDS ORDERED: PREVNAR 13 VACCINE SYRINGE (CPT CODE:90670) IM ONE (11:00)
[2019-05-11] MEDS ORDERED: ALBU83IN INH (14:36)
--- NOTE | 2019-05-12 16:21 | DS.PDOC ---
Discharge Summary General Date of Admission May 06, 2019 at 13:16 Date of Discharge 05/11/19 Discharge Summary PROCEDURES PERFORMED DURING STAY: [None]. DISCHARGE DIAGNOSES: Acute respiratory failure with Hypercarbia and hypoxia COPD exacerbation Bronchiectasis flare Dementia with acute delirium Paraphimosis JOSUE on CKD SECONDARY DIAGNOSIS: Dementia ,Obstructive sleep apnea, COPD, Chronic kidney disease stage III, Type 2 diabetes, Hypertensive heart disease, Hyperlipidemia, Coronary artery disease s/p stent, Degenerative disc disease , BPH, restless legs, chronic back pain COMPLICATIONS/CHIEF COMPLAINT: Acute On Chronic Renal Insufficiency. HISTORY OF PRESENT ILLNESS: See history and physical HOSPITAL COURSE: This is a 73-year-old male who lives at home with his , DO NOT RESUSCITATE, DO NOT INTUBATE with PMH of dementia ,Obstructive sleep apnea, COPD, Chronic kidney disease stage III, Type 2 diabetes, Hypertensive heart disease, Hyperlipidemia, Coronary artery disease s/p stent, Degenerative disc disease fell at home . Found by sitting on the floor confused and very weak and brought to the ED. He was admitted due to acute kidney injury and hypoxia due to chronic obstructive pulmonary disease (COPD) exacerbation. Acute respiratory failure with Hypercarbia and hypoxia due to COPD and Bronchiectasis needed vapotherm. now in room air Now resolved. Bronchiectasis frequent pulmonary toileting, discontinued anticholinergics on albuterol nebs budesonide nebs and advair. Chronic obstructive pulmonary disease (COPD) Exacerbation: improved continue home meds albuterol, advair. will start steroid taper. Dementia with acute delirium due to levaquin, steroids, acute respiratory failure. dced lavaquin, rep failure improved started tapering steroids. Now seems close to baseline On Memantine and donepezil. Paraphimosis reduced by urology voiding normally after dc of oquendo. Diabetes uncontrolled due to steroids continue home metformin and lantus Acute kidney injury due to diarrhea resolved with IVF History of coronary artery disease (CAD): Continued on his home dose of metoprolol and aspirin. Vitamin D deficiency on supplemental vitamin D. Benign prostatic hypertrophy (BPH): On chronic Flomax and finasteride Restless leg: On ropinirole. Chronic back pain and muscle spasms gabapentin and baclofen restarted. CODE STATUS: DO NOT RESUSCITATE, DO NOT INTUBATE DISCHARGE MEDICATIONS: Please see below. ALLERGIES: Please see below. PHYSICAL EXAMINATION ON DISCHARGE: VITAL SIGNS: Please see below. GENERAL: Awake and alert, cooperative , laying down in bed in no distress, smiling, oriented to name and knows he is in hospital. HEET: normocephalic, atraumatic, moist mucous membranes, an icteric eyes. Neck: No jugular venous distention (JVD). No thyromegaly. Lungs are diminished overall with few crackles scattered, no wheezing or ronchi. No use of accessary muscles. CVS: s1, s2 regular , normal rate, no rub murmur or gallop ABDOMEN: Soft nontender, bowel sounds normal, no organomegaly appreciated. Extremities: No edema. No clubbing or cyanosis Skin: warm and dry , with dermatitis of the legs. GENITOURINARY: paraphimosis reduced , skin broken with some bleeding. LABORATORY DATA: Please see below. ACTIVITY: [As tolerated]. DIET: Carb consistent DISPOSITION: Home, Self-Care. DISCHARGE INSTRUCTIONS: Follow up PMD in 1 week DISCHARGE CONDITION: [Stable]. TIME SPENT ON DISCHARGE: 35 minutes. Vital Signs/I&Os Vital Signs Date Time Temp Pulse Resp B/P (MAP) Pulse Ox O2 Delivery O2 Flow Rate FiO2 05/11/19 08:08 85 133/73 05/11/19 06:00 97.3 20 95 Room Air 05/07/19 12:00 1.0 05/07/19 08:00 40 I&O- Last 24 Hours up to 6 AM 05/11/19 06:00 Intake Total 1990 ml Output Total 0 ml Balance 1990 ml Laboratory Data Labs 24H Laboratory Tests 2 05/10/19 21:55: Bedside Glucose (Misc Panel) 366H 05/11/19 05:47: Nucleated Red Blood Cells % (auto) 0.0, Anion Gap 5L, Glomerular Filtration Rate > 60.0, Calcium Level 8.4L CBC/BMP Laboratory Tests 05/11/19 05:47 FSBS Laboratory Tests Test 05/10/19 21:55 Range/Units Bedside Glucose (Misc Panel) 366 83-110 MG/DL Microbiology Microbiology 05/06/19 Blood Culture - Final, Complete NO GROWTH AFTER 5 DAYS 05/06/19 Blood Culture - Final, Complete NO GROWTH AFTER 5 DAYS Discharge Medications Scheduled Apixaban (Eliquis) 5 Mg Tablet, 5 MG PO BID, (Reported) Aspirin (Aspirin) 81 Mg Chw, 81 MG PO DAILY, (Reported) Budesonide (Budesonide) 0.5 Mg/2 Ml Neb, 0.5 MG INH BID, (Reported) Cholecalciferol (Vitamin D3) (Vitamin D3) 1,000 Unit Tab, 1,000 UNIT PO DAILY, (Reported) Donepezil HCl (Donepezil HCl) 5 Mg Tablet, 5 MG PO QHS, (Reported) Finasteride (Finasteride) 5 Mg Tablet, 5 MG PO DAILY, (Reported) Fosinopril Sodium (Fosinopril Sodium) 20 Mg Tablet, 5 MG PO QHS, (Reported) Gabapentin (Neurontin) 600 Mg Tab, 1,200 MG PO BID, (Reported) Insulin Glargine,Hum.rec.anlog (Lantus Solostar) 100 Unit/1 Ml Insuln.pen, 40 UNITS SC QAM, (Reported) Magnesium Chloride (Mag64) 64 Mg Tablet.dr, 64 MG PO BID, (Reported) Memantine HCl (Namenda) 10 Mg Tab, 10 MG PO BID, (Reported) Metformin HCl (Metformin HCl ER) 500 Mg Tab.er.24h, 500 MG PO TID, (Reported) Metoprolol Tartrate (Metoprolol Tartrate) 50 Mg Tablet, 50 MG PO QHS, (Reported) Multivitamins (Thera M Plus Tablet) 1 Tab Tab, 1 TAB PO DAILY, (Reported) Prednisone (Prednisone) 10 Mg Tablet, 10 MG PO TAPER 3 tabs daily x 2 days, then 2 tabs daily x 2 days, then 1 tab daily x 2 days and stop Pyridoxine HCl (Vitamin B6) (Vitamin B-6) 100 Mg Tab, 100 MG PO DAILY, (Reported) Rosuvastatin Calcium (Rosuvastatin Calcium) 40 Mg Tablet, 40 MG PO QPM, (Reported) Salmeterol/Fluticasone (Advair 500-50 Diskus) 28 Puff/Inhaler Aerp, 1 PUFF INH BID, (Reported) Tamsulosin HCl (Flomax) 0.4 Mg Cap, 0.4 MG PO DAILY, (Reported) Scheduled PRN Albuterol Sulf (Albuterol Sulfate) 2.5 Mg/3 Ml Vial.neb, 2.5 MG INH Q6HP PRN for SHORTNESS OF BREATH Albuterol Sulfate (Ventolin Hfa) 18 Gm Hfa.aer.ad, 2 PUFF INH Q4H PRN for wheezing, (Reported) Baclofen (Baclofen) 10 Mg Tab, 10 MG PO BID PRN for MUSCLE SPASMS, (Reported) Bismuth Subsalicylate (Kaopectate) 262 Mg/15 Ml [place], 262 MG PO QID PRN for DIARRHEA, (Reported) Hydrocodone/Acetaminophen (Hydrocodone-Acetamin 7.5-325) 1 Tab Tab, 1 TAB PO Q6H PRN for PAIN, (Reported) Loperamide HCl (Loperamide) 2 Mg Capsule, 2 MG PO QID PRN for DIARRHEA, (Repor jimmy) Nitroglycerin (Nitrostat) 0.4 Mg Subl, 0.4 MG SL Q5MP PRN for ANGINA, (Reported) Ropinirole HCl (Ropinirole HCl) 0.5 Mg Tablet, 0.5 MG PO QHS PRN for RESTLESSNESS, (Reported) Miscellaneous Medications [Comments] , (Reported) PT IS VERY CONFUSED AND PT'S FAMILY HAS NO MEDICATION LIST. THE LIST WAS CPMPILED WITH THE EXTERNALMED HISTORY WELL GOING OVER THE LIST WITH THE PT'S TO CONFIRM. Allergies Coded Allergies: No Known Allergies (Unverified , 10/18/13) MARIELLA FELICIANO MD May 11, 2019 14:40
== END 2019-05-11 12:02 | disposition home health service (06) | DRG 682 ==
LOC: M ED 10:28 → M ED INP 13:16 → M ICU 22:57 → M MSPAV 05-08 14:15
PROVIDERS: ADMIT General Practice; ATTEND Internal Medicine Nephrology
DX: N17.9 Acute kidney failure, unspecified (principal); J96.02 Acute respiratory failure with hypercapnia; J96.01 Acute respiratory failure with hypoxia; J44.1 Chronic obstructive pulmonary disease with (acute) exacerbation; E87.2 Acidosis; E87.1 Hypo-osmolality and hyponatremia; F03.91 Unspecified dementia, unspecified severity, with behavioral disturbance; G47.33 Obstructive sleep apnea (adult) (pediatric); E11.9 Type 2 diabetes mellitus without complications; E78.5 Hyperlipidemia, unspecified; I25.10 Atherosclerotic heart disease of native coronary artery without angina pectoris; Z95.2 Presence of prosthetic heart valve; N40.0 Benign prostatic hyperplasia without lower urinary tract symptoms; G25.81 Restless legs syndrome; Z66 Do not resuscitate; N47.2 Paraphimosis; E55.9 Vitamin D deficiency, unspecified; R19.7 Diarrhea, unspecified; M54.5 Low back pain; Z79.82 Long term (current) use of aspirin; Z79.899 Other long term (current) drug therapy; I12.9 Hypertensive chronic kidney disease with stage 1 through stage 4 chronic kidney disease, or unspecified chronic kidney disease; Z87.891 Personal history of nicotine dependence; I48.91 Unspecified atrial fibrillation; E53.8 Deficiency of other specified B group vitamins

== ENCOUNTER → 2019-05-28 | Outpatient (REF) | payer MEDICARE, OTHER ==
[~2019-05-28] MED LIST changes: +COMMENTS; +DONE5TAB82 PO; +FOSI20TA79 PO; +LANTINJ4 SC; +LOPE1CAP5 PO; +METF-791 PO; +METO50TA7 PO; -PYRI100T2 PO; +ROPI0.5T PO; +ROSU40TA4 PO; +VENTAER INH; +VITA100T82 PO
[2019-05-29 12:21] LABS: HEMOGLOBIN A1c 15.5 %
[2019-05-29 12:58] LABS: ALBUMIN 2.9 GM/DL (3.2-5.2); BILIRUBIN,TOTAL 0.3 MG/DL (0.2-1.0); CALCIUM LEVEL 8.2 MG/DL (8.8-10.2); CHOLESTEROL RISK RATIO 2.526 (<5); CREATININE FOR GFR 1.28 MG/DL (0.70-1.30); GLOMERULAR FILTRATION RATE 58.3 (>42); TOTAL PROTEIN 6.5 GM/DL (6.4-8.2)
== END ==
LOC: M SFHCCLAY 14:21
PROVIDERS: ATTEND Family Medicine
DX: E11.40 Type 2 diabetes mellitus with diabetic neuropathy, unspecified (principal); E78.2 Mixed hyperlipidemia
CPT/HCPCS: 80053; 80061; 83036; G0463

== ENCOUNTER → 2019-11-27 | Outpatient (REF) ==
[~2019-11-27] MED LIST changes: -METF-791 PO; +METF-838 PO; -ROPI0.5T PO; +ROPI0.5T3 PO
== END ==
LOC: SKLAB7 08:20
PROVIDERS: ATTEND Family Medicine
DX: Z79.899 Other long term (current) drug therapy (principal)